=== PATIENT | male | born 1935 | race Caucasian/White ===

== ENCOUNTER 2017-09-30 09:18 | Inpatient (IN) | payer MEDICARE ==
[2017-09-30 10:19] LABS: Hematocrit 37.6 % (42.0-52.0); Mean Platelet Volume 8.7 fL (7.4-10.4); White Blood Cell (WBC) Count 24.7 thou/uL (4.8-10.8)
[2017-09-30 10:31] LABS: ALT (SGPT) 49 U/L (8-55); AST (SGOT) 100 U/L (5-34); Alkaline Phosphatase 121 U/L (40-150); Anion Gap 13 mmol/L (10-20); BUN (Urea Nitrogen) 18 mg/dL (8.4-25.7); CK (CPK) 26 U/L (30-200); Calc. Creatinine Clearance 0 mL/min (70-130); Calcium 8.6 mg/dL (7.8-10.44); Carbon Dioxide 25 mmol/L (23-31); Chloride 106 mmol/L (98-107); Estimated GFR-MDRD 65; Globulin 2.2 g/dL (2.4-3.5); Lipase 921 U/L (8-78); Protein, Total 6.1 g/dL (5.8-8.1)
[2017-09-30 10:36] LABS: Troponin I 0.099 ng/mL (< 0.028)
--- NOTE | 2017-09-30 10:50 | ULT ---
ULTRASOUND GALLBLADDER RIGHT UPPER QUADRANT: Date: 09/30/17 HISTORY: Pain FINDINGS: The pancreas is not well seen. There is cholelithiasis. Gallbladder wall thickness is upper limits of normal. Sonographic Garza's sign is negative. Common bile duct measures 4.0 mm. Liver measures 15.6 cm in length. There is trace perihepatic ascites. Main portal vein is patent. The right kidney measures 9.6 x 5.0 x 5.5 cm without mass, hydronephrosis, or abnormal calcifications . IMPRESSION: 1. Cholelithiasis with gallbladder wall thickness upper limits of normal. Negative sonographic Julia y's sign. Wall thickness may be sequelae of congestive changes. Close follow-up recommended. 2. Mild perihepatic ascites. POS: [facility]
[2017-09-30 11:01] LABS: Band 14 % (5-11); Macrocytosis SLIGHT = 6-15 cells (100X) (0-5/hpf); Neutrophil 78 % (42-75)
--- NOTE | 2017-09-30 11:33 | CT ---
CT ABDOMEN AND PELVIS WITH CONTRAST: Date: 09/30/17 HISTORY: Pancreatitis with elevated white count. COMPARISON: None. FINDINGS: There is atelectasis in the left lower lobe. Small left effusion. Mild elevation left hemidiaphragm. Heart size is enlarged. There is some low grade edema around the pancreatic head, as well as second portion of the duodenum. Spleen is unremarkable. The adrenal glands are normal. Kidneys are slightly atrophic with multiple areas of scarring. There is a right superior renal exophy tic cyst. There are small retroperitoneal and periaortic lymph nodes. Small, fat-containing, left-sided direct inguinal hernia. No dilated loops of large or small bowel. T here is some accumulation of fluid in the left paracolic gutter, as well as thickening of the adjacen t peritoneum with small diverticula. There is moderate to severe degenerative change of the pubic symphysis. There are severe degenerative changes throughout the lumbar spine. IMPRESSION: 1. Low grade edema around the pancreatic head, as well as the second portion of the duodenum. This c an be seen with pancreatitis versus duodenitis. Inflamed ulcer would have similar appearance. If the patient's pancreatic values are normal, such as amylase and lipase, endoscopy would be recommended. 2. Concern for possible ulcer along the dorsal aspect of the second portion of the duodenum with are a of poor mucosal enhancement, series 601, image 50. Upper endoscopy is recommended. 3. Small kidneys with multiple cortical scars. 4. Small volume free fluid in the pelvis. 5. No evidence of bowel obstruction. 6. Mildly heterogeneous appearance to the liver, likely congestive changes with cardiomegaly. POS: [facility]
[2017-09-30] MEDS ORDERED: Furosemide 40 MG/4 ML VIAL ONE (11:47)
[2017-09-30] MEDS ORDERED: ISOVUE-370 76%-LOCM 1 ML ONE (11:47)
[2017-09-30] MEDS ORDERED: Piperacillin/Tazobactam 3.375 GM in Sodium Chloride 0.9% 100 ML IVPB ONE (12:45)
[2017-09-30 13:12] LABS: Troponin I 0.106 ng/mL (< 0.028)
[2017-09-30] MEDS ORDERED: Morphine 4 MG/ML VIAL ONE (13:16)
[2017-09-30] MEDS ORDERED: Ondansetron ODT 4 MG TAB SL PRN (13:58)
[2017-09-30] MEDS ORDERED: Sodium Chloride 0.9% 1,000 ML IV SCH ×2 (13:58→17:00)
[2017-09-30] MEDS ORDERED: Ondansetron HCl/PF 4 MG/2 ML Vial IVP PRN ×2 (13:58→17:00)
[2017-09-30] MEDS ORDERED: Acetaminophen 500 MG TAB PO PRN (17:00)
[2017-09-30] MEDS ORDERED: Ondansetron ODT 4 MG TAB PO PRN (17:00)
[2017-09-30] MEDS ORDERED: hydrALAZINE 20 MG/ML VIAL SLOW IVP PRN (17:00)
[2017-09-30] MEDS ORDERED: cloNIDine 0.1 MG TAB PO PRN (17:00)
[2017-09-30] MEDS ORDERED: Morphine 4 MG/ML VIAL SLOW IVP PRN (17:00)
[2017-09-30] MEDS: HYDROcodone/Acetaminophen 5/325 mg Tablet PO PRN (17:32)
--- NOTE | 2017-09-30 18:47 | HP ---
DATE OF ADMISSION: 09/30/2017 PRIMARY CARE PROVIDER: Gael Sharma M.D. CHIEF COMPLAINT: Abdominal pain. HISTORY OF PRESENT ILLNESS: This is an 81-year-old male who presented to [facility] from [facility] Emergency Department complaining of abdominal pain. 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 The patient states that the pain was 2-3/10 in intensity with some sharp element s. The patient states that the pain seemed to migrate to his chest region and had associated emesis x2 in the evening. The patient denied any recent change to his medication regimen, trauma, injury, s ick contacts or travel history. The patient states his bowel movements have been regular without ruth dence of blood in the stool. 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 In the Emergency Department, the patient underwent general evaluation with metabolic screening showing elev ated white blood cell count of 29,000 and a lipase level of 1117. CT of the abdomen and pelvis showe d inflammation at the head of the pancreas as well as mild duodenal wall thickening. Right upper rosana drant ultrasound was performed showing cholelithiasis without evidence of choledocholithiasis and a c ommon bile duct at 4 mm. The patient received IV morphine sulfate, aspirin 324 mg, Lasix 80 mg IV x1 dose and Zosyn 3.375 g x1 dose. The patient was referred to the Hospitalist Service for further smiley luation. PAST MEDICAL HISTORY: 1. 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 2. History of cellulitis of the left lower extremity associated with myositis and fasciitis. 3. Chronic atrial fibrillation/flutter with pacemaker placement. 4. Coronary artery disease status post angioplasty. 5. Hypertension. 6. History of prior anticoagulation for atrial fibrillation. 7. Symptomatic bradycardia status post pacemaker insertion. 8. History of colon polyps. 9. Degenerative disk disease of the lumbar and cervical spine. 10. History of esophageal stricture. 11. History of syncope with loss of consciousness and closed head injury, 09/2016. PAST SURGICAL HISTORY: 1. Status post left shoulder repair. 2. Status post colon surgery. 3. Status post lower back surgery for disk repair. 4. Status post coronary artery bypass grafting x4 vessels. 5. Status post cervical spine fusion and diskectomy. 6. Status post pacemaker placement. CURRENT MEDICATIONS: 1. Amlodipine 5 mg one tablet p.o. daily. 2. Lipitor 20 mg p.o. at bedtime. 3. Lasix 40 mg 1 tablet p.o. daily. 4. [place] 5/325 mg 1 tablet p.o. q.6 hours p.r.n. pain. 5. Loratadine 10 mg p.o. daily. 6. Losartan/HCTZ 100/25 mg 1 tablet p.o. daily. 7. Metoprolol tartrate 25 mg p.o. daily. 8. Tramadol 50 mg p.o. q.6 hours p.r.n. pain. ALLERGIES: No known drug allergies. FAMILY HISTORY: Positive for hypertension. SOCIAL HISTORY: The patient is , [place] near [facility]. 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 Uses a rolling walker or sco oter for long distance ambulation and mobilization. Continues to drive. REVIEW OF SYSTEMS: The following complete review of systems was negative, unless otherwise mentioned in the HPI or below: Constitutional: Weight loss or gain, ability to conduct usual activities. Sk in: Rash, itching. Eyes: Double vision, pain. ENT/Mouth: Nose bleeding, neck stiffness, pain, te nderness. Cardiovascular: Palpitations, dyspnea on exertion, orthopnea. Respiratory: Shortness of breath, wheezing, cough, hemoptysis, fever or night sweats. Gastrointestinal: Poor appetite, abdom inal pain, heartburn, nausea, vomiting, constipation, or diarrhea. Genitourinary: Urgency, frequenc y, dysuria, nocturia. Musculoskeletal: Pain, swelling. Neurologic/Psychiatric: Anxiety, depressio n. Allergy/Immunologic: Skin rash, bleeding tendency. Otherwise negative except as stated per HPI. PHYSICAL EXAMINATION: VITAL SIGNS: Currently, blood pressure 143/83, pulse 66, respiratory rate 20, temperature 99.1 degre es Fahrenheit, O2 saturation 99% on room air. GENERAL APPEARANCE: This is an 81-year-old male, alert and oriented x3, pleasant, conversa nt, in no acute distress. HEENT: Pupils are equal, round and reactive to light and accommodation. Extraocular muscles are int act. No scleral icterus. No conjunctival injection. Nares patent. OP is clear. Oral mucosa dry. NECK: Supple, no cervical adenopathy, no thyromegaly, no carotid bruits, no JVD appreciated. Cervic al spine with full active and passive range of motion. No meningeal signs appreciated. CHEST: Lungs are clear to auscultation bilaterally. CARDIOVASCULAR: S1, S2 with distant heart sounds. Left upper chest wall with pacemaker device in pl brett. ABDOMEN: Rounded, soft, nontender, nondistended. Bowel sounds are positive in all four quadrants. There is no hepatosplenomegaly, no abdominal bruits, no rebound or guarding appreciated. No palpable mass. EXTREMITIES: Warm and dry with fair turgor. No clubbing, cyanosis or asymmetric edema appreciated. Pulses palpable distally at the dorsalis pedis, posterior tibial and popliteal arteries bilaterally. Capillary refill less than 2 seconds. NEUROLOGIC: Cranial nerves II-XII are grossly intact. No focal or lateralizing signs appreciated. PERTINENT LABORATORY AND X-RAY FINDINGS: Sodium 140, potassium 4.2, chloride 106, CO2 of 25, BUN 18, creatinine 1.09, estimated GFR of 65, glucose 112, calcium 8.6, total bilirubin 2.0, AST 100, ALT 49 , alkaline phosphatase 121. Total CK of 26. Troponin I ranged between 0.099 and 0.106. BNP 2420, p reviously noted; 1053, 09/12/2016. Albumin 3.9, lipase ranged between 921 to 1117. CBC showed a [facility] te blood cell count of 25,000, hemoglobin 12, hematocrit 38, MCV 107, platelet count 191 with 78% jorge a trophils, 14% bands. Portable chest x-ray dated 09/30/2017 showed no acute cardiopulmonary process. Chronic degenerative changes in bilateral shoulders girdles. CT of the abdomen and pelvis dated showed edema around the pancreatic head and second portion of the duodenum. Questionable ulc er of the dorsal aspect of the second portion of the duodenum. No evidence of bowel obstruction. Ab dominal ultrasound dated 09/30/2017 showed cholelithiasis with gallbladder wall thickness in the uppe r limits of normal. Common bile duct measuring 4 mm. EKG dated 09/30/2017 by my interpretation show s a demand pacemaker with heart rates in the 70s. No acute ST-T wave changes appreciated. ASSESSMENT AND PLAN: 1. Acute pancreatitis. The patient will be admitted to the critical care unit. Questionable choled ocholithiasis with spontaneous passage of stone. We will consult GI Service for evaluation and monit or lipase trend. Clinical exam essentially unrevealing currently. We will continue intravenous norm al saline at 75 mL per hour. Morphine sulfate 2 mg IV every 4 hours p.r.n. Clear liquids as tolerat ed. Check fasting lipid profile and lipase level in the a.m. 2. Transaminitis/hyperbilirubinemia. Suspect secondarily to acute pancreatitis. We will continue t o monitor trend and repeat LFTs and bilirubin in the a.m. Clear liquids as tolerated. 3. Elevated troponin I. No current evidence to suggest acute coronary syndrome. Review of [facility] medical record shows similar troponin I levels dating back to 2016. We will continue monitoring t rend and check 2D transthoracic echocardiogram for wall motion abnormalities. 4. Leukocytosis with bandemia. Suspect secondary to acute pancreatitis. We will hold antibiotic th erapy and monitor CBC trend. 5. Chronic atrial fibrillation, rate controlled. We will continue telemetry monitoring. Patient wi th current pacemaker device showing a demand paced rhythm in the 60s-70s. 6. Chronic kidney disease stage 2. We will continue intravenous normal saline at 75 mL per hour. A void nephrotoxic agents and contrast media. Repeat creatinine in the a.m. 7. Prophylaxis. Sequential compression devices while in bed. Pepcid 20 mg IV q.12 hours. PT evalu ation in the a.m. 8. Code status is full. Surrogate medical decision maker is the patient's grandson.
[2017-09-30] MEDS ORDERED: Piperacillin/Tazobactam 3.375 GM in Sodium Chloride 0.9% 100 ML IVPB SCH (19:00)
[2017-09-30] MEDS: Famotidine/PF 20 mg/2ml Vial SLOW IVP SCH (20:52)
[2017-09-30] MEDS: Sodium Chloride 0.9% 1,000 ML IV SCH (21:58)
--- NOTE | 2017-09-30 23:22 | CON ---
DATE OF CONSULTATION: 09/30/2017 REASON FOR CONSULTATION: Acute pancreatitis. CONSULTING PROVIDER: Avni Foster M.D. HISTORY OF PRESENT ILLNESS: The patient is an 81-year-old gentleman with past medical history of cer vical stenosis, coronary artery disease, hyperlipidemia, atrial fibrillation, and hypertension presen ting with complaints of an abdominal pain. He states that yesterday afternoon at around 5:00 p.m. in the afternoon, he had the acute onset of mild midepigastric abdominal pain. They get progressively got worse over the next 6 hours. He described the pain as sharp/stabbing in nature, severity of 5-6/ 10, radiating to the substernal chest region worse with movement, better with inactivity. This was a lso associated with emesis x2 later in the evening with no hematemesis noted at that time. Early the next morning, the pain continued to increase, prompting admission to the [facility] for evaluatio n. Upon evaluation, he was noted to have a white blood cell count of approximately 29,000 and an tarun vated lipase level of 1117. He was subsequently admitted for further evaluation of acute pancreatiti s. Of note, patient did take Pepto-Bismol earlier in the evening for symptom relief with only mild r elief in symptoms. PAST MEDICAL HISTORY: As above. PAST SURGICAL HISTORY: Left shoulder repair, lower back surgery, coronary artery bypass graft x4 ves stacie, cervical spine fusion and diskectomy, and pacemaker placement. SOCIAL HISTORY: Denies any tobacco or illicit drug use. Drinks approximately 2-3 glasses of wine we ekly. OUTPATIENT MEDICATIONS: Amlodipine 5 mg daily, Lipitor 20 mg daily, furosemide 40 mg daily, [place] 5/ 325 q.6 hours as needed, loratadine 10 mg daily, losartan/hydrochlorothiazide 100/25 mg 1 tablet michelle y, metoprolol 25 mg daily, tramadol 50 mg every 6 hours as needed for pain. INPATIENT MEDICATIONS: Reviewed. ALLERGIES: No known drug allergies. REVIEW OF SYSTEMS: A twelve-category review of systems was complete with all negative responses exce pt for the pertinent positives as listed in the HPI. PHYSICAL EXAMINATION: VITAL SIGNS: Temperature 99.5, pulse 65, blood pressure 139/61, respiratory rate 17, satting 92% on 2 liters nasal cannula. GENERAL: No acute distress. Alert and oriented x4. HEENT: Pupils equal, round, and reactive to light. Extraocular movements intact. NECK: No JVD. Neck supple. CARDIOVASCULAR: Regular rate and rhythm with no discernible murmurs, gallops, or rubs. RESPIRATORY: Clear to auscultation bilaterally with no discernible wheezes or rales. ABDOMEN: Soft, normoactive bowel sounds, nondistended. Tender to palpation in the right upper quadr ant, midepigastric, and periumbilical regions with both light and deep palpation. No hepatosplenomeg hayder noted. No rebound or guarding appreciated. EXTREMITIES: No cyanosis, clubbing, or edema. LABORATORY DATA: CBC with white blood cell count of 24.7, hemoglobin 12.2, hematocrit 37.6, platelet s 191. Chemistry with sodium of 140, potassium 4.2, chloride 106, carbon dioxide 25, BUN 18, creatin ine 1.09, glucose 112. AST 100, ALT 49, alkaline phosphatase 121, total bilirubin 2.0, albumin 3.9, lipase 921. BNP 2420. IMAGING: CT abdomen and pelvis obtained on 09/30/2017 showing low-grade edema around the pancreatic head as well as the second portion of the duodenum, which could be seen with pancreatitis versus duod enitis. A small fat containing left-sided direct inguinal hernia also noted. No dilated loops of la rge or small bowel. There is some accumulation of fluid in the left pericolic gutter as well as thic kening of the adjacent peritoneum with small diverticula. Right upper quadrant ultrasound obtained o n 09/30/2017 showing incomplete visualization of the pancreas. Gallbladder wall thickness is to be u pper limit of normal. Sonographic Garza sign is negative. Common bile duct measuring approximately 4 mm. There is also trace perihepatic ascites. ASSESSMENT AND PLAN: Patient is an 81-year-old male with past medical history of cervical stenosis, coronary artery disease, hyperlipidemia, atrial fibrillation, and hypertension presenting with acute pancreatitis. Acute pancreatitis. Patient is presenting with increasing midepigastric abdominal pain that has been worsening over the last 12-18:00 hours characterized as a sharp stabbing pain located in the midepig astric region with no radiation of that pain. Upon admission to the [place] [facility], he was noted to h ave a significantly elevated lipase consistent with acute pancreatitis as well as right upper quadran t ultrasound and CT of the abdomen and pelvis also consistent with the diagnosis. Currently presenti ng with mild pancreatitis, given that he does not meet systemic inflammatory response syndrome criter ia with a BISAP score of 1 (elevated age only). Etiology of the acute pancreatitis is unknown at thi s time, but unlikely to be choledocholithiasis given the elevation of total bilirubin when compared t o his transaminases as well as the CT findings showing normal caliber of the common bile duct. MRCP was discussed with the patient, but he is reluctant to proceed at this time due to extreme complaints of claustrophobia. At this time, the most likely explanation for the episode of acute pancreatitis would be either idiopathic or possible medication induced (hydrochlorothiazide has been shown to caus e pancreatitis on occasion). PLAN: 1. Would continue IV fluid, but increased to approximately 125 mL per hour, given concern for possib le third spacing with acute pancreatitis. 2. Would administer 40 mg IV Lasix after administration of 1 liter of IV fluid. 3. Pain control per primary team. 4. Agree with obtaining a lipid panel for determination of possible hypertriglyceridemia as a source of his pancreatitis. 5. Would discontinue trending of lipase, as it is not reflective of degree of inflammation nor as it a reliable prognostic indicator. 6. We will continue to follow. Please call with any questions.
[2017-10-01] MEDS: Sodium Chloride 0.9% 1,000 ML IV SCH ×3 (00:25→10:36)
[2017-10-01 05:19] LABS: ALT (SGPT) 41 U/L (8-55); AST (SGOT) 63 U/L (5-34); Alkaline Phosphatase 101 U/L (40-150); Anion Gap 14 mmol/L (10-20); BUN (Urea Nitrogen) 19 mg/dL (8.4-25.7); Bilirubin, Total 1.6 mg/dL (0.2-1.2); Calc. Creatinine Clearance 0 mL/min (70-130); Calcium 8.6 mg/dL (7.8-10.44); Carbon Dioxide 25 mmol/L (23-31); Chloride 105 mmol/L (98-107); Cholesterol 106 mg/dl (< 200 Desired); Estimated GFR-MDRD 65; Globulin 2.2 g/dL (2.4-3.5); LDL Cholesterol, Calculated 50 mg/dL; Lipase 357 U/L (8-78); Protein, Total 5.9 g/dL (5.8-8.1)
[2017-10-01 05:22] LABS: Band 6 % (5-11); Hematocrit 37.7 % (42.0-52.0); Mean Platelet Volume 8.8 fL (7.4-10.4); Neutrophil 89 % (42-75); Red Blood Cell (RBC) Count 3.54 mill/uL (4.70-6.10); White Blood Cell (WBC) Count 15.9 thou/uL (4.8-10.8)
[2017-10-01] MEDS: HYDROcodone/Acetaminophen 5/325 mg Tablet PO PRN ×3 (05:56→20:45)
[2017-10-01] MEDS: Metoprolol Tartrate 25 MG TAB PO SCH (08:55)
[2017-10-01] MEDS: Loratadine 10 MG TAB PO SCH (08:55)
[2017-10-01] MEDS: Famotidine/PF 20 mg/2ml Vial SLOW IVP SCH (08:55)
[2017-10-01] MEDS: Furosemide 40 MG TAB PO SCH (08:55)
[2017-10-01] MEDS ORDERED: Sodium Chloride 0.9% 1,000 ML IV SCH (14:31)
[2017-10-01] MEDS ORDERED: Furosemide 40 MG/4 ML VIAL SLOW IVP SCH (15:00)
--- NOTE | 2017-10-01 16:24 | CON ---
DATE OF CONSULTATION: 10/01/2017 SERVICE: Pulmonary Medicine. REASON FOR CONSULTATION: ICU patient. HISTORY OF PRESENT ILLNESS: Patient is an 81-year-old white male with past medical history significa nt for nothing. He has never had his gallbladder out and has some cholelithiasis. He was in his [facility] state of health when he started having annoying discomfort in his belly. It started in the perium bilical region, but then migrated up into the epigastric region. It was sharp and constant in nature . It did not really radiate anywhere. He presented to the emergency department, because it started kind of moving into the inferior part of his chest and he wanted to make certain he was not having a heart issue. His heart checked out fine and did not have any biochemical evidence of changes. That being said, lipase was significantly elevated. This prompted imaging, which confirmed the idea that he had inflammatory stranding around the head of pancreas. He was given some bowel rest for a brief period of time. At some point, his discomfort fairly abruptly improved. Overnight, he had no additi onal issues. This morning, he is tolerating a clear diet. His IV fluids were previously increased. He denies any current fevers, chills, nausea, and vomiting that precipitated any of this event. His abdominal discomfort as of now has completely resolved. PAST MEDICAL HISTORY: 1. Atrial fibrillation, chronic. 2. Coronary artery disease with history of angioplasty. 3. Hypertension. 4. Dyslipidemia. 5. Chronic back pain with degenerative disk disease. PAST SURGICAL HISTORY: 1. Left shoulder repair. 2. Colon surgery. 3. Back surgeries. 4. Coronary artery bypass graft x4 vessels. 5. Neck surgery. 6. Pacemaker placement for history of bradycardia. ALLERGIES: No known drug allergies. MEDICATIONS: List of his inpatient medications were reviewed. No specific updates were made at this time. FAMILY HISTORY: Noncontributory. 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 He got a degree in [employer]. H e has been retired for several years. He does not have any current use of alcohol, tobacco, or illic it drug use, and does not endorse any exposure to chemicals, dust, asbestos, or tuberculosis. REVIEW OF SYSTEMS: General, head, ears, eyes, nose, throat, cardiovascular, respiratory, GI, , mus culoskeletal, neurologic, and skin is negative except as mentioned in the HPI. PHYSICAL EXAMINATION: VITAL SIGNS: Afebrile, pulse 62, blood pressure 106/63, respirations 16, saturation 98% on room air. GENERAL: Patient is awake, alert, in no apparent distress. HEENT: Normocephalic, atraumatic. Sclerae are white. Conjunctivae pink. Oral and nasal mucosa is moist without lesions. LUNGS: Excellent air entry. There is no prolongation of the expiratory phase, wheezing, rhonchi, or crackles. HEART: Normal rate. Irregular. ABDOMEN: Soft, nontender, nondistended. Bowel sounds are positive at this point. NEUROLOGIC: Grossly nonfocal. MUSCULOSKELETAL: No cyanosis or clubbing. There is trace pitting in the bilateral lower extremities . LABORATORY DATA: WBC 15.9, hemoglobin 12.2, platelets 151,000. The hemoglobin count has not signifi cantly changed over the past 24 hours. Bands are resolving to 6%. Total bilirubin 1.6 and down tren ding. Basic metabolic profile is otherwise unremarkable. Liver function studies are essentially com pletely normal with an AST that is moving back into the normal range. Troponin is 0.1, BNP 2400. Li pase 921, is improving to 360. IMAGIN. Abdominal ultrasound demonstrates cholelithiasis with a little bit of gallbladder wall thickening to the upper limits of normal. The common bile duct measures normal at 4 mm. Mild perihepatic asci nicole is identified. 2. CT of the abdomen and pelvis demonstrates stranding about the head of the pancreas. There could be inflammation in the second portion of the duodenum with some enhancement. These changes could ref lect an ulcer in the absence of significantly elevated LFTs, consistent with obstructive pancreatitis . ASSESSMENT: 1. Acute pancreatitis, mild. 2. Chronic diastolic heart failure. 3. Sepsis. PLAN: Since the patient is tolerating full p.o. without significant abdominal discomfort, I will int errupt his IV fluids. He can subsequently be transitioned out of the ICU to the telemetry unit. [facility] will continue to follow for the time being, but my suspicion is that if at all r emains normal and he is breathing comfortably tomorrow morning, he can be considered for transition h ome.
--- NOTE | 2017-10-01 18:55 | PRG ---
DATE OF SERVICE: 10/01/2017 REASON FOR CONSULTATION: Acute pancreatitis. SUBJECTIVE: Overnight, the patient is without any additional problems or complaints. Today, he states that he is feeling better with a decrease in his abdominal pain from a 6/10 in severity to a 3/10 in severity. No further episodes of nausea or emesis. Currently, he denies any nausea, vomiting, fevers , chills, shortness of breath, melena, hematochezia, or hematemesis. INPATIENT MEDICATIONS: Reviewed. LABORATORY DATA: CBC with a white blood cell count of 15.9, hemoglobin 12.1, hematocrit 37.7, platelets 151. Chemistry with a sodium 140, potassium 3.7, chloride 105, carbon dioxide 25, BUN 19, creatinine 1.08, glucose of 74, AST 63 , ALT 41, alkaline phosphatase 101, total bilirubin 1.6, triglycerides 53, lipase 357. ASSESSMENT: The patient is an 81-year-old man with past medical history of cervical stenosis, coronary artery disease, hyperlipidemia, atrial fibrillation , and hypertension presenting with acute pancreatitis. Acute pancreatitis. The patient presenting with increased midepigastric abdominal pain that had been worsening over the last 12-18 hours prior to admission with pain located in the midepigastric region with no radiation to lower back. Upon admission, he was noted to have significantly elevated lipase at approximately 1000, but upon review of labs, was also noted to have a mildly elevated AST when compared to ALT in an approximately 2:1 distribution. Per labs today, he would be diagnosed with mild acute pancreatitis given that he did not meet SIRS criteria with the BISAP score of 1. Upon further questioning of the patient today, he did admit to increased alcohol consumption prior to admission, which could potentially contribute to acute alcoholic pancreatitis. With his current labs and the degree of elevation of total bilirubin when compared to his transaminases, this is not consistent with choledocholithiasis. At this time, the most likely explanation for his episode of acute pancreatitis would be chronic alcohol use leading to both his elevated lipase and transaminases. PLAN: 1. Could consider discontinuation of IV fluid and advancement of the patient's abdominal diet to include oral hydration. 2. Would defer to primary team for administration of Lasix, given elevated BNP on admission. 3. Pain control per primary team. 4. Would advance the diet as tolerated, but would start the patient on low fat diet. 5. Would discontinue trending of lipase as it is not reflective of degree of inflammation nor is it a reliable prognostic indicator. 6. Strongly encourage alcohol cessation. Would consider monitoring for withdrawal. We will sign off at this time. Please reconsult with any additional questions. MTDD
[2017-10-01] MEDS: Famotidine 20 MG TAB PO SCH (19:29)
[2017-10-02] MEDS ORDERED: Haloperidol Lactate 5 MG/ML VIAL IM SCH (00:45)
[2017-10-02] MEDS: Loratadine 10 MG TAB PO SCH (08:37)
[2017-10-02] MEDS: Famotidine 20 MG TAB PO SCH (08:37)
[2017-10-02] MEDS: Furosemide 40 MG TAB PO SCH (08:37)
[2017-10-02] MEDS: Metoprolol Tartrate 25 MG TAB PO SCH (08:37)
[2017-10-02] MEDS: HYDROcodone/Acetaminophen 5/325 mg Tablet PO PRN (09:03)
--- NOTE | 2017-10-02 10:31 | PQF ---
CLINICAL DOCUMENTATION IMPROVEMENT CLARIFICATION FORM: ICD-10 Updated PLEASE DO AN ADDENDUM TO THE PROGRESS NOTE WITH ANY DOCUMENTATION UPDATES OR ADDITIONS AND CARRY THROUGH TO DC SUMMARY. THANK YOU. DATE: 10/02/17 ATTN: DR. CHAVEZ Please exercise your independent, professional judgment in responding to the clarification form. Clinical indicators are provided on the bottom of this form for your review Please check appropriate box(s): HEART FAILURE: A.TYPE: [ ] Systolic / HFrEF [ ] Diastolic / HFpEF [ ] Combined Systolic / Diastolic B.ACUITY [ ] Acute[ ] Acute on Chronic [ ] Chronic C.WITH (if appropriate) [ ] Hypertensive Heart Disease[ ] Hypertensive Heart and Kidney Disease [ ] Other diagnosis [ ] Unable to determine In addition, please specify: Present on Admission (POA): [ ] Yes [ ] No [ ] Unable to determine For continuity of documentation, please document condition throughout progress notes and discharge summary. Thank You. CLINICAL INDICATORS - SIGNS / SYMPTOMS / LABS ER NOTE: "PATIENT ALSO WITH VOLUME OVERLOADED CHF" BNP 2420 ECHO REPORT: "EJECTION FRACTION IS VISUALLY ESTIMATED AT 40-45%" RISKS: H/O CHRONIC DIASTOLIC HEART FAILURE TREATMENT: IV LASIX ( GIVEN IN ER) PO LASIX (10/01-PRESENT) ECHOCARDIOGRAM CRITICAL CARE MONITORING (This form is maintained as a part of the permanent medical record) 2014 [employer]. All Rights Reserved PACO [email or web address] Office: [phone] MTDD
[2017-10-02 11:37] VITALS: BP 154/84; TEMP 97.4
--- NOTE | 2017-10-02 15:44 | PRG ---
DATE OF SERVICE: 10/02/2017 SERVICE: Pulmonary Medicine. INTERVAL HISTORY: The patient is breathing very comfortably this morning. He has no complaints of f kary, chills, nausea, vomiting or chest discomfort. Otherwise, there has been no interval change to his condition. His belly pain is completely resolved. He is hoping to go home today and I think th at is reasonable if cleared by his general medical doctor. He certainly has no respiratory issues th at are going to keep him here any longer. PHYSICAL EXAMINATION: VITAL SIGNS: Afebrile, pulse 65, blood pressure 154/84, respirations 18, saturation 98% on room air. GENERAL: Patient is awake, alert, in no apparent distress. LUNGS: Decent air entry. There is no prolonged expiratory phase. No crackles, wheezing or rhonchi appreciated. HEART: Normal rate, regular. ABDOMEN: Soft, nontender, nondistended. Bowel sounds are positive. MUSCULOSKELETAL: No cyanosis or clubbing. There is trace pitting in the bilateral lower extremities , which is improved. GENITOURINARY: No Seo catheter. NEUROLOGIC: Grossly nonfocal. ASSESSMENT: 1. Acute pancreatitis, mild. 2. Acute on chronic diastolic heart failure, improving. 3. Systemic inflammatory response syndrome. PLAN: Since the patient is clinically improved so much and is tolerating p.o., disposition can be co nsidered. The patient is aggressively pushing for that. He indicates to me that he has returned ess entially to his usual state of health and has no ongoing ailments. He certainly has no requirements even here from a pulmonary or critical care perspective. As such, we will sign off. Please call if the patient's condition decompensates.
== END 2017-10-02 14:23 | disposition home or self-care (01) | DRG 438 ==
LOC: ERS 09:18 → ERHOLD 10:08 → CCU 13:57 → 2SE 10-01 23:33
PROVIDERS: ADMIT Family Medicine; ATTEND Family Medicine
DX: K85.90 Acute pancreatitis without necrosis or infection, unspecified (principal); I50.33 Acute on chronic diastolic (congestive) heart failure; I13.0 Hypertensive heart and chronic kidney disease with heart failure and stage 1 through stage 4 chronic kidney disease, or unspecified chronic kidney disease; I48.2 Chronic atrial fibrillation; E80.6 Other disorders of bilirubin metabolism; R74.8 Abnormal levels of other serum enzymes; N18.2 Chronic kidney disease, stage 2 (mild); Z95.0 Presence of cardiac pacemaker; I25.10 Atherosclerotic heart disease of native coronary artery without angina pectoris; Z95.5 Presence of coronary angioplasty implant and graft; E78.5 Hyperlipidemia, unspecified; Z98.1 Arthrodesis status; F40.240 Claustrophobia; K80.20 Calculus of gallbladder without cholecystitis without obstruction
CPT/HCPCS: 36415; 74177; 76705; 80053; 80061; 83690; 83880; 85007; 85027; 93306; 96365; 96375; A4216; G8978-GP-CI; G8979-GP-CI; G8980-GP-CI; J1630; J1940; J2270; J2543; J7050; S0028

== ENCOUNTER 2018-02-18 10:27 | Outpatient (CLI) | payer MEDICARE ==
--- NOTE | 2018-02-19 10:36 | RAD ---
MODIFIED BARIUM SWALLOW WITH SPEECH THERAPIST: HISTORY: Dysphagia unspecified, dysphagic oropharyngeal phase and feeding difficulties. FINDINGS/IMPRESSION: A modified barium swallow is performed by the speech therapist. Deep silent penetration was seen wit h thin liquids. No aspiration is seen during the examination. Please see dedicated speech therapy r eport for specific findings and recommendations. POS: [facility]
== END 2018-02-18 10:28 | disposition home or self-care (01) ==
PROVIDERS: ATTEND Internal Medicine
DX: I69.191 Dysphagia following nontraumatic intracerebral hemorrhage (principal); R13.12 Dysphagia, oropharyngeal phase
CPT/HCPCS: 74230; G8996-GN-CL; G8997-GN-CL; G8998-GN-CL

== ENCOUNTER 2018-08-13 09:35 | Outpatient (CLI) | payer MEDICARE ==
--- NOTE | 2018-08-13 13:09 | CT ---
CTA CHEST WITH AND WITHOUT CONTRAST: INDICATIONS: Coronary mapping prior to surgical procedure. This is not a dedicated coronary artery examination. TECHNIQUE: Multiple axial tomograms obtained through the chest with attention to the heart without contrast. Th is was followed by post contrast images. Multiplanar reconstruction and 3D post processing were obta ined. FINDINGS: The pulmonary arteries show normal opacification with no evidence of pulmonary embolus. The thoracic aorta shows mild atherosclerotic change. No evidence of dissection or aneurysmal dilatation. Diffuse coronary artery calcification is seen in the left main, the LAD, and the circumflex. The rig ht coronary artery has a normal origin and shows diffuse calcification. There are bypass grafts in p lace, from the aorta to the LAD and the circumflex. These grafts appear to be patent on the post con trast study. There is also a bypass graft to the right coronary. There is evidence of mild calcific ation within these bypass grafts, and patency is difficult to confirm. The pulmonary veins appear no rmal anatomically. The lung mcgraw show ground glass opacity in the visualized left lower lobe. The right lower lobe is not adequately evaluated. There is evidence of a small to moderate sized left p leural effusion. IMPRESSION: 1. Diffuse coronary artery calcification. Bypass grafts are in place with evidence of mild calcific ation involving the grafts. 2. Pulmonary arteries and pulmonary veins appear unremarkable. 3. Small to moderate left pleural effusion. POS: [facility]
[2018-08-13] MEDS ORDERED: Iopamidol 370 76% 100 ML VIAL ONE (13:29)
== END 2018-08-13 09:36 | disposition home or self-care (01) ==
LOC: CT 09:35
PROVIDERS: ATTEND Internal Medicine Cardiovascular Disease
DX: I48.91 Unspecified atrial fibrillation (principal); R06.02 Shortness of breath; I25.810 Atherosclerosis of coronary artery bypass graft(s) without angina pectoris; J90 Pleural effusion, not elsewhere classified
CPT/HCPCS: 36415; 71275; 82565; 84520

== ENCOUNTER 2018-11-10 11:40 | Day surgery (SDC) | payer MEDICARE ==
[2018-11-09 12:25] VITALS: BMI 23.6
[2018-11-10] MEDS ORDERED: Lidocaine 2% 10 ML INJ ONE (12:25)
[2018-11-10] MEDS ORDERED: PROPOFOL 20 ML ONE (12:25)
[2018-11-10] MEDS ORDERED: Fentanyl 100 MCG/2 ML VIAL ONE (12:38)
[2018-11-10] MEDS ORDERED: traMADol HCl 50 MG TAB PO SCH (13:30)
[2018-11-10] MEDS ORDERED: traMADol HCl 50 MG TAB ONE (13:45)
[2018-11-10] MEDS ORDERED: Lidocaine 1% PF 5 ML VIAL ONE (16:00)
[2018-11-10] MEDS ORDERED: PROPOFOL 200 MG/20 ML VIAL ONE (16:00)
--- NOTE | 2018-11-12 13:07 | ECHO ---
PROCEDURE PERFORMED 1. Transesophageal echocardiography. 2. Assessment of Watchman device. The patient was consented to the procedure. I discussed proceeding in full detail with Mr. Campbell. Risks included, but not limitedtothe following: Damage to teeth, mouth, back of throat and damage to esophagus. All questions were answered. Given the above, the patient agreed to proceed with the above procedure. FINDINGS The Watchman is well seen. Cannot completely exclude malposition in the superior edge of the Watchman. No thrombus present behind the Watchman suggesting flow or leak. IMPRESSION 1. No thrombus present behind the Watchman suggesting leak. Study reviewed by Dr. Edwin Alcaraz and Remington Grey, who agreed. Continue anticoagulation therapy for at least two months and repeat DILLON. MTDD
== END 2018-11-10 14:15 | disposition home or self-care (01) ==
LOC: SDC 11:40
PROVIDERS: ATTEND Internal Medicine Cardiovascular Disease
PROC: B246ZZ4 Ultrasonography of Right and Left Heart, Transesophageal (ICD-10-PCS; principal; 2018-11-10)
DX: I48.1 Persistent atrial fibrillation (principal); E78.5 Hyperlipidemia, unspecified; I11.0 Hypertensive heart disease with heart failure; I50.9 Heart failure, unspecified; Z79.82 Long term (current) use of aspirin; Z79.899 Other long term (current) drug therapy; Z88.8 Allergy status to other drugs, medicaments and biological substances; Z95.1 Presence of aortocoronary bypass graft; Z95.818 Presence of other cardiac implants and grafts
CPT/HCPCS: 93312; J2001; J2704; J3010

== ENCOUNTER 2019-01-04 15:25 | Outpatient (CLI) | payer MEDICARE | END 2019-01-04 15:26 | disposition home or self-care (01) | LOC: CTENTCT 15:25 | PROVIDERS: ATTEND Otolaryngology Plastic Surgery within the Head & Neck | DX: J32.9 Chronic sinusitis, unspecified (principal) | CPT/HCPCS: 70486 ==

== ENCOUNTER 2019-01-22 09:34 | Outpatient (CLI) | payer MEDICARE | END 2019-01-22 09:35 | disposition home or self-care (01) | LOC: BICCT 09:34 | PROVIDERS: ATTEND Internal Medicine Cardiovascular Disease | DX: Z01.812 Encounter for preprocedural laboratory examination (principal); I48.91 Unspecified atrial fibrillation; R06.02 Shortness of breath | CPT/HCPCS: 82565 ==

== ENCOUNTER 2019-03-03 12:25 | Observation (INO) | payer MEDICARE ==
[2019-03-03 17:03] VITALS: BMI 25.2
[2019-03-03] MEDS ORDERED: Ondansetron PF 4 MG/2 ML Vial SLOW IVP PRN (17:03)
[2019-03-03] MEDS ORDERED: Pepto Bismol Chew TAB PO PRN (17:03)
[2019-03-03] MEDS ORDERED: Acetaminophen 325 MG TAB PO PRN (17:03)
[2019-03-03] MEDS ORDERED: Acetaminophen 650 MG Suppository PR PRN (17:03)
[2019-03-03 17:30] LABS: Hemoglobin 10.6 g/dL (14.0-18.0); Mean Corpuscular HGB CONC 34.5 g/dL (32.0-36.0); Mean Corpuscular Hemoglobin 34.1 pg (27.0-31.0); Mean Corpuscular Volume 98.7 fL (78.0-98.0); Mean Platelet Volume 9.3 fL (7.4-10.4); Platelet Count 159 thou/uL (130-400); RBC Distribution Width 15.1 % (11.5-14.5); White Blood Cell (WBC) Count 7.5 thou/uL (4.8-10.8)
[2019-03-03 17:45] LABS: Anion Gap 14 mmol/L (10-20); BUN (Urea Nitrogen) 22 mg/dL (8.4-25.7); Calc. Creatinine Clearance 37 mL/min (70-130); Calcium 9.7 mg/dL (7.8-10.44); Carbon Dioxide 25 mmol/L (23-31); Chloride 104 mmol/L (98-107); Estimated GFR-MDRD 44; Glucose 81 mg/dL (83-110); Potassium 4.3 mmol/L (3.5-5.1); Sodium 139 mmol/L (136-145)
[2019-03-03 17:49] LABS: Anisocytosis SLIGHT = 6-15 cells (100X) (0-5/hpf); Band 3 % (5-11); Lymphocytes 24 % (21-51); MDiff Complete? YES; Monocytes 9 % (0-10); Neutrophil 64 % (42-75); Ovalocytes SLIGHT = 2-5 cells (100X) (0-1/hpf); Platelet Morphology Comment Appears Adequate; Polychromasia SLIGHT = 2-3 cells (100X) (0-2/hpf); Schistocytes SLIGHT = 2-5 cells (100X) (0-1/hpf)
[2019-03-03] MEDS: Sodium Chloride 0.9% 1,000 ML IV SCH (18:21)
[2019-03-03] MEDS ORDERED: Arformoterol 15 MCG/2 ML NEB ONE (18:59)
[2019-03-03] MEDS: Arformoterol 15 MCG/2 ML NEB NEB SCH (19:09)
[2019-03-03] MEDS ORDERED: Loratadine 10 MG TAB PO SCH (21:00)
[2019-03-03] MEDS ORDERED: Atorvastatin Calcium 20 MG TAB PO SCH (21:00)
[2019-03-03] MEDS ORDERED: traMADol HCl 50 MG TAB PO PRN (22:00)
[2019-03-03] MEDS: Famotidine/PF 20 mg/2ml Vial SLOW IVP SCH (22:23)
[2019-03-03] MEDS: Carvedilol 6.25 MG TAB PO SCH (22:23)
[2019-03-04] MEDS: Sodium Chloride 0.9% 1,000 ML IV SCH (02:02)
[2019-03-04] MEDS ORDERED: Sodium Chloride 0.9% 1,000 ML IV SCH (06:00)
[2019-03-04] MEDS ORDERED: Fluticasone Propionate Nasal Spray 16 gm Bottle NASAL SCH ×2 (06:30→09:00)
[2019-03-04] MEDS ORDERED: Budesonide 0.5 MG/2 ML NEB NEB SCH (06:30)
[2019-03-04] MEDS: Arformoterol 15 MCG/2 ML NEB NEB SCH (06:38)
[2019-03-04] MEDS: Carvedilol 6.25 MG TAB PO SCH (08:52)
[2019-03-04] MEDS: Fish Oil 1,000 MG CAP PO SCH ×2 (08:52→09:08)
[2019-03-04] MEDS: Famotidine/PF 20 mg/2ml Vial SLOW IVP SCH (08:55)
[2019-03-04] MEDS ORDERED: Azelastine 137 MCG/Spray 30 ML NS SCH (09:00)
[2019-03-04] MEDS ORDERED: Loratadine 10 MG TAB PO SCH (09:00)
[2019-03-04] MEDS ORDERED: Clopidogrel Bisulfate 75 MG TAB PO SCH (09:00)
[2019-03-04] MEDS ORDERED: Ascorbic Acid 500 mg Chewable Tablet PO SCH (09:00)
[2019-03-04] MEDS ORDERED: Tamsulosin HCl 0.4 MG CAP PO SCH (09:00)
[2019-03-04] MEDS ORDERED: Aspirin 81 mg Enteric Coated Tablet PO SCH (09:00)
[2019-03-04] MEDS ORDERED: Multivitamin W/ Minerals 1 TAB PO SCH (09:00)
[2019-03-04] MEDS ORDERED: Cyanocobalamin (Vitamin B-12) 1,000 MCG TAB PO SCH (09:00)
[2019-03-04] MEDS ORDERED: Iopamidol 370 76% 100 ML VIAL ONE (11:39)
[2019-03-04 13:31] VITALS: BP 148/96; TEMP 97.6
[2019-03-05] MEDS ORDERED: Famotidine/PF 20 mg/2ml Vial SLOW IVP SCH (09:00)
--- NOTE | 2019-03-22 19:02 | OP ---
DATE OF PROCEDURE: 03/03/2019 PREPROCEDURE DIAGNOSIS: Nonhealing ulcer. POSTPROCEDURE DIAGNOSIS: Severe peripheral vascular disease. PROCEDURES PERFORMED: 1. Aortogram. 2. Bilateral aortofemoral runoff. COMPLICATIONS: None. TOTAL SEDATION TIME: 30 minutes. DESCRIPTION OF PROCEDURE: The patient was draped and prepped in sterile fashion. Access was obtained in right femoral artery under ultrasound guidance. A 5-Setswana sheath was placed. A Contra catheter was placed in the aorta with images performed. It was then placed in the contralateral segment, but only in the iliac region due to significant tortuosity with images performed. FINDINGS: The aorta has no significant stenosis or aneurysm. Left lower extremity - the common iliac, external iliac, and common femoral arteries appeared to have significant calcification present. There appeared to be areas that were difficult to assess flow-limiting leary due to heavy calcification. The proximal portion of the popliteal artery does have significant calcification with likely 60% to 70% stenosis. The anterior tibial artery does have a 99% stenosis. The anterior tibial artery does have an ostial 90% stenosis. The posterior tibial artery is completely occluded. There was diffuse disease present in the peroneal and tibioperoneal artery and the anterior tibioperoneal artery. IMPRESSION: Severe peripheral vascular disease. RECOMMENDATIONS: 1. Continue wound care. 2. Staged intervention versus femoral-popliteal bypass. Job ID: [id number]
== END 2019-03-04 13:30 | disposition home or self-care (01) ==
LOC: 2SW 16:12 → 2NO 20:46
PROVIDERS: ADMIT Internal Medicine Cardiovascular Disease; ATTEND Internal Medicine Cardiovascular Disease
DX: I73.9 Peripheral vascular disease, unspecified (principal); I48.0 Paroxysmal atrial fibrillation; I13.0 Hypertensive heart and chronic kidney disease with heart failure and stage 1 through stage 4 chronic kidney disease, or unspecified chronic kidney disease; E11.22 Type 2 diabetes mellitus with diabetic chronic kidney disease; N18.9 Chronic kidney disease, unspecified; I50.9 Heart failure, unspecified; I25.10 Atherosclerotic heart disease of native coronary artery without angina pectoris; E78.5 Hyperlipidemia, unspecified; J98.9 Respiratory disorder, unspecified; Z95.1 Presence of aortocoronary bypass graft; Z88.5 Allergy status to narcotic agent; Z79.82 Long term (current) use of aspirin; Z79.899 Other long term (current) drug therapy
CPT/HCPCS: 36245; 75710; 76942; 80048; 85025; 94640 ×3; 96361 ×2; 96374; 96376; C1769 ×2; C1887 ×2; G0378; G0379; 36415; J7620; Q9967; S0028

== ENCOUNTER 2019-04-07 11:32 | Outpatient (CLI) | payer MEDICARE ==
[~2019-04-07 11:32] MED LIST: Sodium Chloride 0.9% 15 ML NEB ONE
--- NOTE | 2019-04-08 00:19 | HP ---
HISTORY OF PRESENT ILLNESS: Mr. Steve Campbell is a very pleasant 83-year-old gentleman, accompanied by his caregiver who [facility] evaluation of an ulceration of the left lateral foot. The patient's caregiver states that the ulceration has been present for approximately 2 months. The patient has been receiving dressing changes of Medihoney for the left foot ulceration. The patient's caregiver also states that Mr. Campbell has been seen in consultation by Dr. Sergio Whitmore. She states that the patient is scheduled to be seen in consultation by Dr. Lizama next week. PAST MEDICAL HISTORY: 1. Hypertension. 2. History of colon carcinoma. 3. Arthritis. 4. History of nephrolithiasis. 5. Coronary artery disease. 6. Atrial fibrillation/atrial flutter. 7. Anemia. 8. Congestive heart failure. 9. Gastroesophageal reflux disease. 10. Peripheral vascular disease. 11. Asthma. PAST SURGICAL HISTORY: 1. Back surgery x2. 2. Surgery for colon carcinoma. 3. Coronary artery bypass grafting. 4. Knee arthroscopy. 5. Shoulder surgery. 6. Neck surgery. 7. Pacemaker insertion. 8. Watchman device placement. MEDICATIONS: 1. Coreg. 2. Clopidogrel. 3. Atorvastatin. 4. Lasix. 5. Potassium. 6. Ondansetron. 7. Tramadol. 8. Nexium. 9. Aspirin. 10. [place] XL. 11. D3 50. 12. Vitamin B12. 13. Alpha [employer] Energy. 14. Cetirizine. 15. Brovana. 16. Budesonide. 17. Albuterol. 18. Azelastine. 19. Vitamin C. 20. Tamsulosin. ALLERGIES: MIRTAZAPINE, SERTRALINE, MORPHINE. SOCIAL HISTORY: Social history is negative for tobacco use. The patient admits to the consumption of one glass of wine per day for over 10 years. FAMILY HISTORY: Family history is negative for diabetes mellitus or coronary artery disease. PHYSICAL EXAMINATION: VITAL SIGNS: Temperature 97.7, pulse 81, respirations 21, blood pressure 117/82. GENERAL: An 83-year-old gentleman, lying on table in examination room, in no acute distress. HEENT: Normocephalic, atraumatic. NECK: No nuchal rigidity. CHEST: Clear to auscultation. CV: Regular rate and rhythm. ABDOMEN: Soft. EXTREMITIES: An ulceration of the left lateral foot is present which measures approximately 0.3 x 0.2 cm. No purulent drainage is associated with the wound. No erythema of the skin surrounding the wound is present. No maceration of the skin of the periwound is noted. A dorsalis pedis pulse or posterior tibial pulse is not palpable on the left. No significant edema of the left foot is present on exam today. NEURO: Grossly nonfocal. ASSESSMENT AND PLAN: 1. Ulceration of left lateral foot as described above. Dressing changes of Medihoney will be continued. The patient has been reassured that the ulceration is healing without complications or any signs of infection. The patient is to keep his appointment with Dr. Lizama next week. I will see Mr. Campbell again as needed after his evaluation by Cardiovascular Surgery. The patient and his caregiver understand and are in agreement with the preceding treatment plan. 2. Hypertension. 3. History of colon carcinoma. 4. Arthritis. 5. History of nephrolithiasis. 6. Coronary artery disease. 7. Atrial fibrillation/atrial flutter. 8. Anemia. 9. Congestive heart failure. 10. Gastroesophageal reflux disease. 11. Peripheral vascular disease. 12. Asthma. Job ID: [id number]
== END 2019-04-07 11:33 | disposition home or self-care (01) ==
LOC: WCC 11:32
PROVIDERS: ATTEND Family Medicine
DX: L97.529 Non-pressure chronic ulcer of other part of left foot with unspecified severity (principal); I11.0 Hypertensive heart disease with heart failure; I50.9 Heart failure, unspecified; M19.90 Unspecified osteoarthritis, unspecified site; I25.10 Atherosclerotic heart disease of native coronary artery without angina pectoris; D64.9 Anemia, unspecified; K21.9 Gastro-esophageal reflux disease without esophagitis; I73.9 Peripheral vascular disease, unspecified; J45.909 Unspecified asthma, uncomplicated; Z87.442 Personal history of urinary calculi; Z85.038 Personal history of other malignant neoplasm of large intestine
CPT/HCPCS: 97602; 99203; A4218; G0463

== ENCOUNTER 2019-05-03 15:25 | Inpatient (IN) | payer MEDICARE ==
[2019-05-03] MEDS ORDERED: Furosemide 40 MG/4 ML VIAL ONE (16:05)
[2019-05-03] MEDS ORDERED: Fentanyl 100 MCG/2 ML VIAL ONE (16:05)
--- NOTE | 2019-05-03 17:12 | ULT ---
GALLBLADDER ULTRASOUND: HISTORY: Abdominal pain. Shortness of breath. Nausea and vomiting. COMPARISON: Prior CT from 05/03/2019. Prior gallbladder ultrasound from 09/30/2017. FINDINGS: Abnormal liver echogenicity with some minimal nodularity, raising concern for the possibility of cirr hosis. Moderate ascites. Large mass in the gallbladder, which contains soft tissue density, as well as some areas of calcification or ossification. The overall size of this intraluminal mass measures approximately 2.9 x 3.1 x 8.5 cm, almost filling the lumen of the gallbladder. No evidence for gall bladder wall thickening. The common bile duct is 0.4 cm. The visualized right kidney and pancreas are unremarkable. IMPRESSION: 1. Somewhat coarse, heterogeneous liver echogenicity, as well as some liver contour irregularity, co ncerning for the possibility of cirrhosis. 2. Moderate ascites. 3. Abnormal large filling defect within the gallbladder, taking the shape of the gallbladder, contai pat soft tissue, as well as calcific or ossific components, possibly representing a huge sludge ball surrounding multiple stones. The possibility of this representing a neoplastic process, I feel, is somewhat less likely, given its well defined margins, without evidence for obvious gallbladder wall i nvasion. 4. No common duct dilatation. 5. Prior examination of 09/30/2017 demonstrated a moderate amount of layering sludge in the gallblad hermes. POS: [facility]
[2019-05-03 17:43] LABS: CKMB 9.6 ng/mL (0-6.6)
[2019-05-03] MEDS ORDERED: Ondansetron ODT 4 MG TAB SL PRN (18:26)
[2019-05-03] MEDS ORDERED: Acetaminophen 325 MG TAB PO PRN (18:26)
[2019-05-03] MEDS ORDERED: Ondansetron PF 4 MG/2 ML Vial IVP PRN (18:26)
[2019-05-03] MEDS ORDERED: Fentanyl 100 MCG/2 ML VIAL SLOW IVP PRN (18:27)
--- NOTE | 2019-05-03 18:30 | PDOC.FPRHP ---
- History of Present Illness Chief Complaint: Abdominal, N/V History of Present Illness: 83 yo male presents as a transfer from [facility] for nausea, vomiting, abdominal pain, and jaundice. Pt presents with his and caregiver who added to his history. For the past few weeks pt has had increased intermittent confusion, episodic vomiting at night, decreased appetite, and more recently diffuse abdominal pain. Pt was seen at [facility] 2 days ago for increased shortness of breath and was dx with bronchitis and put on azithromycin. Caregiver stated that she returned from being out of town yesterday and noticed that the pt was more confused and was complaining of worsening shortness of breath, abdominal pain, N/V, and she noticed that his skin looked more yellow. Pt was subsequently brought to [facility] before being transferred here for higher level of care/surgery consult for gallbladder disease. When asked if the pt drinks alcohol the pt's stated that he drinks every so often at meals, however the caregiver indicated that he drinks much more than this, at the very least wine with every meal. At the time of evaluation the pt complains of shortness of breath, weakness, dizziness, and diffuse abdominal pain, 5/10. [facility] workup included CT abdomen showed moderate ascites with probable gallstones and moderate bilateral pleural effusions. Labs were significant for elevated LFT's/bilirubin, WBC, BNP, and indeterminate level troponins. Ultrasound here showed possible cirrhosis and an intraluminal gallbladder mass that was described as a likely sludge ball vs less likely neoplasm. Pt has history of watchmen device placement and is ventricularly paced. Most recent echo report shows and EF of 40-45%. Recent diagnosis of skin cancer found on his left upper eyelid, referred to MD [facility], still pending evaluation. - Allergies/Adverse Reactions Allergies Allergy/AdvReac Type Severity Reaction Status Date / Time mirtazapine Allergy Severe ANGIOEDEMA Verified 05/03/19 21:59 sertraline Allergy Severe HALLUCINATI Verified 05/03/19 21:59 ONS morphine Allergy Intermediate HALLUCINATION, Verified 05/03/19 21:59 CONFUSED - Home Medications Medication Instructions Recorded Confirmed Type Arformoterol [Brovana] 15 mcg NEB BID 06/16/18 05/03/19 History Aspirin [Aspirin EC] 81 mg PO DAILY 06/16/18 05/03/19 History Esomeprazole Magnesium [NexIUM] 20 mg PO QAM-WM 06/16/18 05/03/19 History Carvedilol [Coreg] 6.25 mg PO BID 07/02/18 05/03/19 History Ondansetron [Zofran Odt] 4 mg PO Q4HR PRN #20 tab.rapdis 07/05/18 05/03/19 Rx traMADol HCl [Ultram] 1 - 2 tab PO Q8HR PRN 11/09/18 05/03/19 History Azelastine [Azelastine 137 mcg 1 - 2 spray EA NARE DAILY 03/03/19 05/03/19 History (0.1%) Nasal [employer]] Budesonide 0.5 mg IH BID 03/03/19 05/03/19 History Clopidogrel Bisulfate [Plavix] 75 mg PO DAILY 03/03/19 05/03/19 History Cyanocobalamin (Vitamin B-12) 5,000 mcg PO DAILY 03/03/19 05/03/19 History [Vitamin B12] Multivitamin [Multivitamins] 1 cap PO DAILY 03/03/19 05/03/19 [address] [employer] [place]-3 Fatty Acids/Fish Oil 1 cap PO DAILY 03/03/19 05/03/19 History [[employer] [place] 3 Fish Oil Softgel] Tamsulosin HCl [Flomax] 0.4 mg PO DAILY 03/03/19 05/03/19 History Albuterol Sulfate [Ventolin] 0.5 ml NEB BID 05/03/19 05/03/19 History [employer] 1 tab PO DAILY 05/03/19 05/03/19 History Atorvastatin Calcium 20 mg PO DAILY 05/03/19 05/03/19 History Cholecalciferol (Vitamin D3) 5,000 mcg PO DAILY 05/03/19 05/03/19 History [Vitamin D3] Furosemide 40 mg PO DAILY 05/03/19 05/03/19 History Potassium Chloride [K-Dur] 20 meq PO DAILY 05/03/19 05/03/19 History - History PMHx: HTN, CAD, HLD, hypertriglyceridemia, Afib-pace maker, GERD, cervical stenosis, recurrent aspiration PSHx: Watchmen device placement (09/2018), cervical laminectomy, left shoulder surgery, colon surgery, quadruple coronary bypass (2006), spinal fusion Social: Pt and report glass of wine with meal, caregiver voices concern about likely more alcohol consumption than reported. Pt lives at home with and delivery architect - Review of Systems General: reports: weight/appetite/sleep changes (decreased appetite), fatigue. denies: fever/chills, night sweats Respiratory: reports: cough, shortness of breath Cardiovascular: denies: chest pain, palpitation, edema Gastrointestinal: reports: nausea, vomiting, abdominal pain. denies: diarrhea Skin: reports: jaundice Musculoskeletal: denies: pain, swelling Neurological: reports: weakness - Vital signs BP: 114/89 HR: 79 RR: 17 Tmax: 98.7 Pox: 96% on 2L Wt: [] - Physical Exam Constitutional: NAD HEENT: normocephalic and atraumatic, EOMI -HEENT: +scleral icterus Neck: FROM -Neck: JVD in upright position Heart: RRR, normal S1/S2, pulses present, no edema Lungs: no respiratory distress -Lungs: Shallow breaths, decreased lung sounds in bilateral lower mcg[place] -Abdomen: Soft, diffusely tender, distended abdomen - moderately resonant to percussion, no obvious peritoneal signs Musculoskeletal: normal structure Neurological: no focal deficit -Neurological: Pt answers questions indirectly, difficult to assess mental status, caregiver states he is more confused than his baseline -Skin: Senile bruises to all extremities, +jaundice -Psychiatric: Remote memory seems well intact, looks to and caregiver for assistance with questions of recent memory FMR H&P: Results - Labs Result Diagrams: 05/04/19 04:13 05/04/19 04:13 Lab results: CK-MB (CK-2) 9.6 ng/mL (0-6.6) H* 05/03/19 16:46 - Radiology Interpretation CT scan - abdomen Status: report reviewed by me (Moderate bilateral pleural effusions, moderate developing ascites, probable gallstones) US - abdomen Status: report reviewed by me (Possible cirrhosis, moderate ascites, intraluminal gallbladder mass - most likely sludge ball, less likely neoplasm) Chest x-ray Status: report reviewed by me (cardiomegaly, left lower lobe atelectasis vs infiltrate, left pleural effusion vs pleural thickening) FMR H&P: A/P - Problem List (1) Transaminitis Current Visit: Yes Status: Acute Code(s): R74.0 - NONSPEC ELEV OF LEVELS OF TRANSAMNS & LACTIC ACID DEHYDRGNSE (2) Congestive heart failure (CHF) Current Visit: Yes Status: Acute Code(s): I50.9 - HEART FAILURE, UNSPECIFIED (3) Ascites Current Visit: Yes Status: Acute Code(s): R18.8 - OTHER ASCITES (4) Jaundice Current Visit: Yes Status: Acute Code(s): R17 - UNSPECIFIED JAUNDICE (5) Leukocytosis Current Visit: Yes Status: Acute Code(s): D72.829 - ELEVATED WHITE BLOOD CELL COUNT, UNSPECIFIED - Plan Cholangitis vs Cholelithiasis vs Cholecystitis Elevated transaminases, bilirubin, and alk phos with leukocytosis RUQ US and abd CT showed sludge ball vs neoplasm without CBD or GB distension, possible cirrhosis, moderate ascites -started on Zosyn -has remained afebrile to this point -ammonia 17 -surgery and GI consulted -does not meet septic criteria at this time -holding IV fluids due to concurrent CHF -zofran prn N/V -trending CMP and CBC Congestive heart failure Most recent EF 40-45% (09/21/2017), CXR and Abd CT note moderate bilateral pleural effusions, possible LLL infiltrate, indeterminate Troponins, BNP 3621 Has been experiencing increased SOB, visible JVD, no peripheral edema, double lasix dose yesterday at home -40mg IV Lasix BID -alan catheter, BPH -Echo ordered for tomorrow -Consult cardiology tomorrow -supplemental O2 as needed -trend troponins Acute transaminitis - possible cirrhosis Elevated LFT's, PT, PTT. RUQ US and abd CT showed moderate ascites, coarse heterogeneous echogenicity of the liver with irregular liver contour concerning for possible cirrhosis Reported alcohol consumption by pt and is within acceptable limits, caregiver expresses concern about possibility of increased consumption -GI consulted -increased confusion recently, ammonia level 17 -hepatitis panel pending -Hepatic changes may be due to acute obstructive process vs chronic injury Disposition/LOS: Dispo: Admit to inpatient telemetry LOS: Expected to be >48 hrs FMR H&P: Upper Level - Plan Date/Time: 05/03/19 2363 HPI: This is an 83 yo coming in with multiple issues, chief being CHF exacerbation, suspected cholangitis vs mass of gallbladder, and acute transaminitis. He was in process of establishing care at [facility] for skin cancer. The patient was sent to the ED by caregiver today who noted that he was not acting his normal self. Patient has gained 10lbs in last 1-2 months. He has chronic dry cough. He states that in the last month or so it has become difficult to walk across his house which is new for him. He denies chest pain, palpiations, or orthopnea. The patient also has RUQ abdominal pain going on for at least a month but now worse. HE denies N/V/D. He denies fevers, chills, swetas. States pain does not radiate. States he has been having trouble swallowing since having and anterior cervical laminectomy. Per caregiver, yellowing of his skin is new in last week or so. REVIEW OF SYSTEMS: Gen: no fever, chills, or sweats Neuro: no numbness/tingling, denies headache Eyes: no visual changes ENT: no hearing changes, no sore throat, no runny nose Resp: +dry cough, denies SOB Card: see hpi GI: see hpi : no dysuria, no hematuria MSK: no myalgia, no joint pain/stiffness Skin: no rash, no erythema PHYSICAL EXAMINATION: General: NAD, alert and oriented x3 HEENT: PERRLA, EOMI, normal sclera, oropharynx without erythema or exudate, scleral icterus Neck: Supple. Full ROM. Heart/Cardiovascular System: RRR, Cap refill < 3 seconds, no rub, no murmur Lungs/Respiratory System: clear to auscultation bilaterally. No increased work of breathing. Mild decreased breath sounds at bases bilaterally Abdomen/Gastro-Intestinal System: mild distension, tender throughout, no guarding or rigidity Extremities: Warm extremities. Trace edema at the ankles biltaerally Neuro: No gross deficits appreciated. CN 2-12 grossly intact Psychiatry: Awake, Alert and cooperative with exam Skin: No lesions, rashes, or ulcers Musculoskeletal: Full ROM A/P: # Cancer of gall bladder vs Cholangitis - Transaminitis, bili 7.1, WBC 16.4, ALP 94 - RUQ shows sludge, stones, likely mass in gallbladder - Surgery consulted, indicates patient would likely need surgery but not stable 2/2 CHF at this time, will follow - Cont Zosyn, trend lactic, no hypotension or AMS # CHF - BNP on 7/2 1505 -> 3621 today - Up 10lbs, on Lasix 40mg PO daily at home - Last known EF 40-45%, ordered echo - Lasix 40mg BID, CXR shows effusion vs atelectasis will follow # Transaminitis - Ammonia 16, will check hepatits panel, INR 1.3 - Consider hepatic congestion 2/2 CHF and above mass, mets from skin cancer, or hepatitis as source - GI consulted, appreciate recs # Type II OH - Trend trop, likely demand # A fib - home meds # HTN - home meds Fluids: TKO Code status: DNR- confirmed with patient and PPx: heparin, SCD Dispo: >2 nights Addendum - Attending - Attending Attestation Date/Time: 05/03/192020 I personally evaluated the patient and discussed the management with resident team I agree with the History, Examination, Assessment and Plan documented above with any addition or exceptions noted below. 83 yo male with multiple medical conditions as stated above presents today as a transfer from outside facility due to gallbladder disease. Patient has been seen twice this week in ER for continued complaints of fatigue , weakness, fever, chills, abdominal pain, SOB, decreased appetite. Last ER visit dx and treated for bronchitis. Returned again today for change in mental status, increasing abdominal pain, and jaundice. On review patient has noted to have evidence of a progressive cholestasis picture from 2017. Imaging present with some gallbladder and pancreatic changes.Today imaging was impressive for large gallbladder mass/sludge ball with stones and concerns for cirrhosis. Common duct was noted to be fairly normal in caliber. Based on exam, history, and labs patient was subsequently dx with suppicion for cholangitis. Antibiotics were started. Labs to be trending. Add procal. Due to significant gallbladder mass/sludge Gen Surg was consulted. Appreciate recs but likely will hold on surgical intervention at this time. Ascites and possible need for ERCP/MRCP/US this hospital stay, GI to be consulted in AM. Patient also with acute HF exacerbation. Will continue to diuresis. Monitor trop due to risk for ischemia. ECHO to be reviewed. BNP has been in the 1000's pretty frequently since 2017. Cards to be consulted in AM. Will need to balance fluids closely. Patient at risk for overload due to need for some fluids due to infectious process. Patient with hx of CKD. For most part appears to be baseline but slightly elevated Cr. Monitor for risk for increase with need for Lasix. Will need to stop all renal toxic medications. Nephro as needed. Renally dose all medications. Adjust home meds as indicated. DVT ppx needed. Pancho
[2019-05-03] MEDS ORDERED: Piperacillin/Tazobactam 3.375 GM in Sodium Chloride 0.9% 100 ML IVPB SCH (19:00)
[2019-05-03 20:09] LABS: Troponin I 0.073 ng/mL (< 0.028)
[2019-05-03] MEDS ORDERED: Furosemide 40 MG/4 ML VIAL SLOW IVP SCH (21:15)
--- NOTE | 2019-05-03 21:33 | CON ---
DATE OF CONSULTATION: 05/03/2019 CONSULTING PHYSICIAN: Violeta Reddy MD REASON FOR CONSULTATION: Cholelithiasis, possible cholecystitis, jaundice. HISTORY OF PRESENT ILLNESS: The patient is a chronically ill 83-year-old white male. He lives in [place] at home with his and a bus girl. His bus girl is present at bedside with him and is of great assistance here on the telemetry unit. She took him to the emergency room in [place] earlier today, because he was not in his usual self. He was substantially weaker than usual. He is having a harder time breathing and became short of breath with minimal activity. Apparently, he did not really complain of pain to her, but he does note that he does have some abdominal pain, little appetite, and that he has pain if his belly is examined. He has a long history of multiple medical problems, most prominently including congestive heart failure. In the emergency room, he had laboratory studies performed. This revealed a series of abnormalities. He had gone to the emergency room 2 days ago and at that time, his white blood cell count was normal at 10, today at 16.4 with a significant left shift. His chemistry profile revealed that his bilirubin was significantly elevated at 7.9 which was up from 4.4, 2 days ago. His baseline bilirubin is normal and his bilirubin was 1.0 in October. He has had bilirubin elevations over the past couple of years, however. His lipase is slightly elevated at 294. He had lipase elevations in September of 2017. His baseline lipase however is normal. Also, his troponin level is elevated at 0.07. It is noted that his troponin level is always elevated and over the past three years, it has never been less than 0.05 (presumably related to his congestive heart failure). A CT scan was obtained while in [place] revealing that he has ascites, bilateral pleural effusions and probable gallstones. As his creatinine is a little elevated, intravenous contrast was not utilized. An ultrasound was then obtained upon his arrival to this facility revealing a large mass that almost appears to be tissue inside his gallbladder measuring 3 x 3 x 8 cm, almost filling the lumen of the gallbladder. There appeared to be some calcifications within this. The radiologist felt it was most consistent with a large sludge ball containing multiple stones. I felt that a neoplastic process was less likely as it did not appear to be invasive of the surrounding tissue, but rather growing freely within the lumen. Previous gallbladder ultrasound in September 2017, revealed a moderate amount of layering sludge. After arriving to this emergency room, he was admitted to the [facility] service. Not mentioned above is that his BNP, beta natriuretic peptide is markedly elevated at 3600. This is always elevated every time it has been checked in the past 4 years, but this is the highest it has ever been. PAST MEDICAL HISTORY: 1. Hypertension. 2. History of colon cancer. 3. Arthritis. 4. History of nephrolithiasis. 5. Coronary artery disease (status post CABG). 6. Atrial fibrillation (status post Watchman procedure). 7. History of anemia. 8. Substantial congestive heart failure. 9. Gastroesophageal reflux disease. 10. Peripheral vascular disease. 11. Asthma. PAST SURGICAL HISTORY: 1. Back surgery x6. 2. Surgery for colon cancer. 3. Coronary artery bypass surgery about 10 years ago. 4. Knee surgery. 5. Shoulder surgery. 6. Neck surgery. 7. Pacemaker insertion. 8. Watchman device placement within the past 3 or 4 years. MEDICATIONS: He has a lengthy list and these include: 1. Coreg. 2. Plavix. 3. Atorvastatin. 4. Lasix. 5. Potassium. 6. Zofran. 7. Tramadol. 8. Hydrocodone. 9. Nexium. 10. Aspirin. 11. Series of vitamins. He also received breathing treatments using albuterol. He was recently placed on Flomax, although his bus girl is uncertain if it is yielding any benefits. ALLERGIES: MIRTAZAPINE, SERTRALINE, AND MORPHINE. PERSONAL AND SOCIAL HISTORY: He is and is present at bedside. He has 3 grown children. He has never been a heavy drinker. He drinks a glass of wine about once per day. REVIEW OF SYSTEMS: Otherwise unremarkable. FAMILY HISTORY: Noncontributory. PHYSICAL EXAMINATION: VITAL SIGNS: Temperature is 97.9, pulse 82, blood pressure is 136/82, oxygen saturation is apparently 100% on 3 L nasal cannula. HEAD, EYES, EARS, NOSE, AND THROAT: Unremarkable, although he does have scleral icterus. NECK: Supple. LUNGS: Clear to auscultation. CARDIAC: Appears to be regular rhythm to auscultation, although heart sounds are relatively faint. ABDOMEN: Mildly protuberant, not really distended and soft. He claims significant tenderness with palpation, worse on the right than on the left. I am unable to definitely palpate his liver, but he does complain of discomfort in the right upper quadrant. EXTREMITIES: Unremarkable. He apparently had a lesion on his lateral left foot that has subsequently healed recently. LABORATORY DATA: Labs are as referenced above. He does have some electrolyte abnormalities with low levels of sodium chloride and CO2. Creatinine is about 1.66, which is close to baseline for him. His lactate level is a little elevated at 2.6. All of his liver function tests are elevated, but none of them are very high. Alkaline phosphatase 247. His albumin level is preserved at 3.7. ASSESSMENT: The patient with what appears to be an exacerbation of his baseline congestive heart failure. This certainly could contribute to hepatic congestion and some elevation of liver function tests, as well as elevation of pancreatic enzymes. He does have significant hyperbilirubinemia. Reportedly, the common bile duct was normal in caliber, which would be atypical if he had obstructive jaundice. For now, I would recommend repeating his laboratory studies tomorrow and see what changes occur with these. Appropriately, Gastroenterology has been consulted. For right now, I am not certain that he needs an ERCP. In regard to the abnormal lesion in his gallbladder, at some point, he would almost certainly benefit from a cholecystectomy but he is currently not a surgical candidate due to his underlying cardiac disease. I have spoken with his attending physician this evening. Certainly recommend cardiac evaluation with cardiac optimization and clearance as appropriate. At some point in the near future if he becomes optimized, then he would potentially be an appropriate candidate for a cholecystectomy. If his liver function tests and potentially his lipase continued to go up, then he might require an ERCP first. Given his underlying urinary problems, he may benefit from a Seo catheter placement while he is being diuresed. We will continue to follow along with you during this hospitalization. Job ID: [id number]
[2019-05-03 22:54] LABS: Lactic Acid 1.8 mmol/L (0.5-2.2)
[2019-05-03 23:04] LABS: Troponin I 0.054 ng/mL (< 0.028)
[2019-05-03] MEDS ORDERED: traMADol HCl 50 MG TAB PO PRN (23:52)
[2019-05-04] MEDS ORDERED: traMADol HCl 50 MG TAB PO PRN (00:13)
[2019-05-04 01:50] LABS: HBSAg Index 0.31 S/CO (0-0.99); Hep A IgM AB Non-Reactive (NonReactive); Hep A IgM S/CO 0.35 S/CO (0-0.79); Hep B Surf Ag Non-Reactive S/CO (NonReactive); Hep C IgG Ab Non-Reactive (NonReactive); Hep C Index 0.07 S/CO (0-0.79)
[2019-05-04 01:51] LABS: HBCM Index 0.54 S/CO (0-0.79); Hepatitis B Core IgM Abs Non-Reactive (NonReactive)
[2019-05-04] MEDS ORDERED: Piperacillin/Tazobactam 3.375 GM in Sodium Chloride 0.9% 100 ML IVPB SCH (03:00)
[2019-05-04 05:08] LABS: ALT (SGPT) 43 U/L (8-55); AST (SGOT) 97 U/L (5-34); Albumin 3.2 g/dL (3.4-4.8); Alkaline Phosphatase 197 U/L (40-150); Anion Gap 16 mmol/L (10-20); BUN (Urea Nitrogen) 29 mg/dL (8.4-25.7); Bilirubin, Total 6.5 mg/dL (0.2-1.2); Calc. Creatinine Clearance 38 mL/min (70-130); Calcium 8.8 mg/dL (7.8-10.44); Carbon Dioxide 25 mmol/L (23-31); Chloride 97 mmol/L (98-107); Estimated GFR-MDRD 44; Glucose 77 mg/dL (83-110); Potassium 3.4 mmol/L (3.5-5.1); Protein, Total 5.2 g/dL (5.8-8.1); Sodium 135 mmol/L (136-145)
[2019-05-04 05:11] LABS: Band 10 % (5-11); Hemoglobin 10.3 g/dL (14.0-18.0); Lymphocytes 2 % (21-51); MDiff Complete? YES; Mean Corpuscular HGB CONC 32.7 g/dL (32.0-36.0); Mean Platelet Volume 10.1 fL (7.4-10.4); Monocytes 2 % (0-10); Neutrophil 86 % (42-75); Platelet Count 131 thou/uL (130-400); RBC Distribution Width 16.6 % (11.5-14.5); Red Blood Cell (RBC) Count 3.12 mill/uL (4.70-6.10); White Blood Cell (WBC) Count 15.8 thou/uL (4.8-10.8)
--- NOTE | 2019-05-04 05:43 | PDOC.FM ---
- Subjective Subjective: No acute events overnight. Doing well this morning. Denies chest pain, SOB at rest, and abdominal pain at rest. Continues to report SOB with exertion and abdominal tenderness to palpation. Had 2 BM overnight. Caregiver, , and son were present this morning and caregiver reported that patient had generalized weakness before coming into the ED this morning. Patient reports that he has a livestock sale at 2pm today and would like to return home. Son provided me with POA name and number: Sami Arboleda [phone]. Son is under the impression that patient will likely be agreeable to staying in the hospital. Upon revisiting the patient with [facility] team, patient appeared agreeable to treatment plan, understands cardiology and GI consults have been placed. - Objective Vital Signs & Weight: Vital Signs (12 hours) Temp Pulse Resp BP Pulse Ox 05/04/19 03:02 98.3 F 91 18 125/58 L 92 L 05/03/19 20:00 98 05/03/19 19:00 97.9 F 82 20 136/82 100 05/03/19 18:37 98.0 F 83 18 124/72 73 L Weight Weight 75.024 kg Result Diagrams: 05/04/19 04:13 05/04/19 04:13 Additional Labs: Bili 7.9->6.5 Alk Phos 274->197 Trops: 0.076, 0.073, 0.054 Lactic 2.9->1.8 WBC 16->15.8 ALT/AST 145/58->97/43 CK MB 9.6 BNP 3621 on admission Radiology Reviewed by me: Yes Radiology: 05/03 Abdominal U/s: 1. Heterogenous liver echogenicity, as well as some liver contour irregularity, concerning for the possibility of cirrhosis. 2. Moderate ascites 3. Abnormal large filling defect within the gallbladder, taking the shape of the gallbladder containing soft tissue, as well as calcific or ossific components, possibly representing a huge sludge ball surrounding multiple stones. The possbility of this representing a neoplastic process is less likely given its well defined margins without evidence for obvious gallbladder wall invasion. 05/03 abdomen/pelvis CT: 1. moderate bilateral pleural effusions, greater on the left side 2. developing moderate ascites 3. probable gallstones 05/03 CXR: 1. cardiomegaly 2. LLL atelectasis vs pneumonia 3. left pleural effusion vs left pleural thickening Phys Exam - Physical Examination Constitutional: NAD sclera icteric minimal breath sounds throughout ventricular pacing, normal rate Gastrointestinal: soft, positive bowel sounds TTP RUQ and RLQ, distention Musculoskeletal: pulses present Deviation from normal: diffuse jaundice, ecchymosis throughout forearms, lower legs Dx/Plan (1) Ascites Code(s): R18.8 - OTHER ASCITES Status: Acute (2) Congestive heart failure (CHF) Code(s): I50.9 - HEART FAILURE, UNSPECIFIED Status: Acute (3) Jaundice Code(s): R17 - UNSPECIFIED JAUNDICE Status: Acute (4) Leukocytosis Code(s): D72.829 - ELEVATED WHITE BLOOD CELL COUNT, UNSPECIFIED Status: Acute (5) Transaminitis Code(s): R74.0 - NONSPEC ELEV OF LEVELS OF TRANSAMNS & LACTIC ACID DEHYDRGNSE Status: Acute (6) Afib Code(s): I48.91 - UNSPECIFIED ATRIAL FIBRILLATION Status: Chronic (7) CAD (coronary artery disease) Code(s): I25.10 - ATHSCL HEART DISEASE OF [place] CORONARY ARTERY W/O ANG PCTRS Status: Chronic (8) Dyslipidemia Code(s): E78.5 - HYPERLIPIDEMIA, UNSPECIFIED Status: Chronic (9) HTN (hypertension) Code(s): I10 - ESSENTIAL (PRIMARY) HYPERTENSION Status: Chronic - Plan Plan: #Suspected Cholangitis - likely 2/2 gallbladder obstruction -Elevated transaminases (AST/ALT 145/58-> 97/43), bilirubin (7.9->6.5), and alk phos (274->197) with leukocytosis (WBC 16->15.8) -RUQ US concerning for possible cirrhosis, moderate ascites, no common bile duct dilatation, possibility of large sludge ball surrounded by stones in the gallbladder vs less likely neoplasm 2/2 well defined margins and no evidence of gallbladder wall invasion -started on Zosyn 05/04 -afebrile on admission and overnight -ammonia of 17 -surgery consulted, not certain if ERCP necessary but patient likely would benefit from cholecystectomy. Not a candidate at this time and would need cardiac optimization prior to sx -GI, Dr. Aldridge, consulted, appreciate recs -does not meet septic criteria at this time -holding IV fluids due to concurrent CHF -zofran prn N/V -trending CMP #Congestive heart failure/CAD -Most recent EF 40-45% (09/21/2017) -CXR and Abd CT note moderate bilateral pleural effusions, moderate ascites, possible LLL infiltrate -indeterminate Troponins 0.076, 0.073, 0.054, likely elevated 2/2 CHF as have been indeterminate in past admissions as well -BNP 3621 -Has been experiencing increased SOB, visible JVD, no peripheral edema -Lasix 40mg IV BID -Echo today pending -Cardiology, Dr. Lucas consulted, appreciate recs -supplemental O2 as needed to keep SpO2>92% #Afib with Ventricular Pacing -on tele -v-paced with periods of afib in between pacing -rate in the 70s overnight -continue to monitor #HLD -continue home meds #GERD -continue home meds #HTN -vss -BP this morning 132/65 -on lasix for CHF -on tele, continue to monitor Diet: Heart Healthy DVT Proph: heparin GI Proph: protonix Code Status: DNR-DNI Dispo: inpatient, possible surgery/ERCP pending GI and cards consults Addendum - Attending - Attending Attestation Date/Time: 05/04/19 0007 I personally evaluated the patient and discussed the management with Dr. Peña. I agree with the History, Examination, Assessment and Plan documented above with any addition or exceptions noted below. Pt with jaundice and scleral icterus noted on exam this morning. Pt will continue IV antibiotics. GI and Cardiology are consulted. Continue IV lasix for CHF exacerbation. Echo is pending. Pt needs cardiac clearance prior to surgical intervention.
[2019-05-04] MEDS: Piperacillin/Tazobactam 3.375 GM in Sodium Chloride 0.9% 100 ML IVPB SCH ×3 (05:46→22:22)
[2019-05-04] MEDS: Furosemide 40 MG/4 ML VIAL SLOW IVP SCH ×2 (05:47→13:53)
[2019-05-04] MEDS: Arformoterol 15 MCG/2 ML NEB NEB SCH ×2 (06:49→18:52)
[2019-05-04] MEDS: Albuterol Sulfate 2.5 mg/3 ml Neb NEB SCH ×2 (06:52→18:50)
[2019-05-04] MEDS: Budesonide 0.5 MG/2 ML NEB NEB SCH ×2 (06:53→18:52)
[2019-05-04] MEDS ORDERED: Carvedilol 6.25 MG TAB PO SCH (09:00)
[2019-05-04] MEDS: Heparin 5,000 UNITS/ML VIAL SC SCH ×2 (09:47→13:41)
[2019-05-04] MEDS: Multivitamin W/ Minerals 1 TAB PO SCH (09:48)
[2019-05-04] MEDS: Tamsulosin HCl 0.4 MG CAP PO SCH (09:48)
[2019-05-04] MEDS: Atorvastatin Calcium 20 MG TAB PO SCH (09:48)
[2019-05-04] MEDS: Cyanocobalamin (Vitamin B-12) 1,000 MCG TAB PO SCH (09:48)
[2019-05-04] MEDS: Fish Oil 1,000 MG CAP PO SCH (09:49)
[2019-05-04] MEDS: Aspirin 81 mg Enteric Coated Tablet PO SCH (09:50)
[2019-05-04] MEDS: Potassium Chloride 20 MEQ TAB PO SCH (09:50)
[2019-05-04] MEDS: Azelastine 137 MCG/Spray 30 ML NS SCH (12:07)
[2019-05-04 13:11] LABS: INR-International Normal Ratio 1.4; PTT 45.9 SEC (22.9-36.1); Prothrombin Time 17.3 SEC (12.0-14.7)
[2019-05-04] MEDS: Ondansetron ODT 4 MG TAB PO PRN (13:38)
--- NOTE | 2019-05-04 14:24 | CON ---
DATE OF CONSULTATION: 05/04/2019 REASON FOR CONSULTATION: Jaundice and abnormal liver function profile. HISTORY OF PRESENT ILLNESS: Mr. Campbell is an 83-year-old male from [place] , who had been to the ER in [place] twice before presenting to this ER over the last 5 days. The patient presents with increasing weakness associated with nausea, vomiting, abdominal pain, and jaundice. CT of the abdomen showed cholelithiasis , ascites, bilateral pleural effusions, greater on the left than the right with elevation in his liver profile. Once he presents to [place] ER, gallbladder ultrasound was performed and showed a mass-like effect within the gallbladder, presumably from thick sludge and gallstones, ascites, but without any biliary tree dilation both intrahepatic and extrahepatic. His common duct measured 4 mm. The patient reports noticing jaundice over the last 2 to 3 days. Five days ago, he was prescribed azithromycin and prednisone from his first ER visit for a presumed bronchitis. Currently, he is feeling better with much less shortness of breath. The patient denies having any previous known liver disease, although he does consume mostly wine over many years, which he stopped 5 years ago. He denies any family history of liver disease. The patient has had chronic dysphagia mostly to solid food since his spinal fusion cervical laminectomy in 2014. He has had 2 modified barium swallow studies, most recent in February of last year. He has no problem drinking liquids. PAST MEDICAL HISTORY: 1. Congestive heart failure. 2. Hypertension. 3. Coronary artery disease, status post bypass surgery. 4. Atrial fibrillation, status post Watchman procedure. 5. GE reflux disease. 6. Peripheral vascular disease. 7. Asthma. 8. Status post back surgery. 9. Status post cervical laminectomy. 10. History of colon cancer status post partial colectomy. 11. Pacemaker insertion. 12. Orthopedic Surgery for his knee, shoulder, and neck. MEDICATIONS: 1. Lasix. 2. Tramadol. 3. Nexium. 4. Aspirin 81 mg daily. 5. Multiple supplements. 6. Brovana inhaler. 7. Budesonide inhaler. 8. Albuterol nebulizer. 9. Flomax. SOCIAL HISTORY: The patient is . Lives with his . Has a caregiver , who lives next door. No active tobacco history. He stopped consuming wine 5 years ago. FAMILY HISTORY: Negative for any known GI problem, liver disease, or GI malignancy. REVIEW OF SYSTEMS: Ten-point review of systems did not show any other pertinent positives or negatives. PHYSICAL EXAMINATION: VITAL SIGNS: Temperature is 97.4, blood pressure is 132/65, pulse of 82. GENERAL: He is alert conversant. Apparently, jaundiced. HEENT: Shows icteric sclerae. Oropharynx is clear and moist. NECK: Supple. CV: Shows normal S1 and S2. Irregular rhythm. Normal rate. CHEST: Shows bilateral rhonchi. ABDOMEN: Soft mildly protuberant, nontender. He has active bowel sounds. Liver edge not palpable. EXTREMITIES: Show no edema. LABORATORY DATA: WBCs 15.8, hemoglobin 10.3, and platelet count of 131. Sodium 135, potassium 2.4, chloride 97, CO2 of 25, creatinine 1.51, BUN of 29, bilirubin 6.5, AST of 97, ALT of 43, alkaline phosphatase 197, lipase of 319. IMAGING STUDIES: Abdominal ultrasound showed ascites, filling defect within gallbladder suggestive of stone and sludge. Common duct measured [address] without contrast showed nodular liver, ascites, pleural effusion, gallstone, and normal pancreas. ASSESSMENT: 1. Elevation of liver profile with disproportionately hyperbilirubinemia compared to elevation of liver enzymes. Both CT and ultrasound do not show any obstructive process as there is no evidence of intrahepatic or extrahepatic biliary dilation. I suspect his hyperbilirubinemia is multifactorial, most likely from liver congestion on top of his cirrhosis. In addition, I am concerned there is a possibility of drug-induced hepatitis, especially from azithromycin that was prescribed 5 days prior to this admission from [facility]. There is no utility for any ERCP at this point as there is no evidence of biliary obstruction. 2. Chronic dysphagia since his cervical laminectomy in 2014. The patient had been evaluated twice with modified barium swallow, which does show fairly impaired oropharyngeal dysphagia. Clinically, he does have more problem with solids and liquids. At some point when he is more medically stable, an upper endoscopy could be considered to exclude any esophageal stricture that may need dilatation. 3. Congestive heart failure. 4. Coronary artery disease with chronically elevated troponin I. 5. Atrial fibrillation. 6. Hypertension. 7. Elevation of lipase, mild. No evidence of pancreatitis on CT scan yesterday. RECOMMENDATION: 1. Diagnostic paracentesis to send off for peritoneal fluid, albumin, protein, cell count, and cytology. 2. Continue with diuresis. 3. Continue to trend his liver profile at this point. 4. We will follow. Job ID: [id number] [id number]
--- NOTE | 2019-05-04 20:07 | PRG ---
DATE OF SERVICE: 05/04/2019 SUBJECTIVE: Mr. Campbell remains on the telemetry floor. He is sleeping when I arrived and was not easily arousable. I spoke with his . She tells me he has had minimal appetite today. He is receiving breathing treatments. He was seen in consultation by Dr. Aldridge, who did not recommend ERCP for his hyperbilirubinemia. He felt that this was likely multifactorial. As far as I can gather, he has not yet been seen by Cardiology. PHYSICAL EXAMINATION: VITAL SIGNS: He is afebrile. Pulse is 69, blood pressure is 122/61. LUNGS: Clear to auscultation anteriorly. CARDIAC: Regular rate and rhythm. ABDOMEN: Protuberant but soft with hypoactive bowel sounds. LABORATORY DATA: His chemistry panel reveals his sodium has normalized somewhat as is his chloride level. His carbon dioxide is normal at 25. His creatinine is stable at 1.5. His bilirubin actually dropped from 7.9 to 6.5. AST and ALT also dropped. Alkaline phosphatase dropped as well. His lipase level, however, increased from 294 to 319. His CBC reveals that his white blood cell count has decreased slightly from 16.4 to 15.8. Hemoglobin remained stable at 10.3. ASSESSMENT: The patient with multiple medical comorbidities that are likely producing the congestive heart failure with the ascites. It is still possible that his elevated white blood cell count is related to his gallbladder. He has a large intraluminal mass and cholecystectomy be appropriate if he ever becomes medically stable for this. He should continue medical management for the time being. I will be out of town for the next several days and Dr. Macedo will see him in my absence. Job ID: [id number]
--- NOTE | 2019-05-05 00:25 | CON ---
DATE OF CONSULTATION: HISTORY OF PRESENT ILLNESS: The patient is an unfortunate 83-year-old gentleman who presented with nausea, vomiting, and abdominal discomfort. The patient has a long history of coronary artery disease. He is status post coronary artery bypass graft surgery. He also has had history of atrial fibrillation. The patient has had placement of a Watchman device. The patient also has a history of placement of an electronic pacemaker. The patient most recently underwent procedure for peripheral vascular disease. He was found to have severe bilateral peripheral vascular disease. The patient was admitted with nausea, vomiting, and abdominal swelling. He has been found to have evidence of cholangitis. He may need to undergo surgery. The patient is somnolent. PAST MEDICAL HISTORY: 1. Coronary artery disease. 2. Atrial fibrillation. 3. Hypertension. 4. Peripheral vascular disease. 5. Asthma. 6. Gastroesophageal reflux. PAST SURGICAL HISTORY: Laminectomy and back surgery. SOCIAL HISTORY: Nonsmoker. MEDICINES: See nursing list. ALLERGIES: 1. MORPHINE. 2. SERTRALINE. 3. MIRTAZAPINE. PHYSICAL EXAMINATION: GENERAL: This is an elderly gentleman who is jaundiced with a blood pressure of 116/58. NECK: No jugular venous distention. LUNGS: Clear anteriorly. HEART: Regular rate and rhythm. Normal S1, S2. ABDOMEN: Markedly distended. EXTREMITIES: Showed trace edema. LABORATORY RESULTS: Sodium 135, potassium 3.4, chloride 97, bicarbonate 25, BUN 29, creatinine 1.5. His AST is 97. His white blood cell count is 15.8, hemoglobin 10.3, hematocrit 31.5, and platelet 131. INR is 1.4. IMPRESSION: 1. Cholangitis. 2. History of coronary bypass surgery. 3. History atrial fibrillation. 4. History of Watchman device. 5. History of peripheral vascular disease. 6. History of pacemaker placement. This gentleman presents with cholangitis. He may need to undergo apparently a gallbladder surgery. From a cardiac standpoint, he is certainly at least moderate risk of cardiac complications with his overall poor health. If surgery is deemed necessary, he should be monitored very closely perioperatively. Further recommendations will follow. Job ID: [id number] MTDD
[2019-05-05 04:48] LABS: #Lymphocytes 0.4 thou/uL (1.20-3.40); #Monocytes 1.1 thou/uL (0.11-0.59); %Lymphocytes 2.6 % (21.0-51.0); %Monocytes 6.5 % (0.0-10.0); %Neutrophils 90.9 % (42.0-75.0); Hemoglobin 10.3 g/dL (14.0-18.0); Mean Corpuscular HGB CONC 32.8 g/dL (32.0-36.0); Mean Platelet Volume 9.8 fL (7.4-10.4); Platelet Count 145 thou/uL (130-400); RBC Distribution Width 16.5 % (11.5-14.5); Red Blood Cell (RBC) Count 3.11 mill/uL (4.70-6.10); White Blood Cell (WBC) Count 16.5 thou/uL (4.8-10.8)
[2019-05-05 05:14] LABS: ALT (SGPT) 31 U/L (8-55); AST (SGOT) 55 U/L (5-34); Alkaline Phosphatase 165 U/L (40-150); Anion Gap 16 mmol/L (10-20); BUN (Urea Nitrogen) 28 mg/dL (8.4-25.7); Bilirubin, Total 4.8 mg/dL (0.2-1.2); Calc. Creatinine Clearance 43 mL/min (70-130); Calcium 8.6 mg/dL (7.8-10.44); Carbon Dioxide 26 mmol/L (23-31); Chloride 97 mmol/L (98-107); Estimated GFR-MDRD 52; Globulin 2.2 g/dL (2.4-3.5); Glucose 79 mg/dL (83-110); Lipase 182 U/L (8-78); Protein, Total 5.2 g/dL (5.8-8.1); Sodium 136 mmol/L (136-145)
[2019-05-05 05:16] LABS: Potassium 2.5 mmol/L (3.5-5.1)
--- NOTE | 2019-05-05 05:45 | PDOC.FM ---
- Subjective Subjective: No acute events overnight. Resting comfortably in bed. Tele monitoring: v-paced, some PVCs, few triplets, one or two runs of 4-5, rate in 80s-90s Patient was bathed in preparation for GI plans to do HIDA scan and possible paracentesis this am. Son said patient does not use oxygen at home. Denies cp, sob at rest, abdominal pain at rest. Positive attitude about treatment. - Objective MAR Reviewed: Yes Vital Signs & Weight: Vital Signs (12 hours) Temp Pulse Resp BP Pulse Ox 05/05/19 04:00 98.4 F 69 20 123/54 L 99 05/04/19 20:00 98.0 F 71 20 143/58 H 96 05/04/19 18:52 69 16 97 05/04/19 18:50 69 16 97 Weight Admit Weight 75.024 kg Weight 74.435 kg Not on oxygen at home, per son I&O: 05/03/19 05/04/19 05/05/19 06:59 06:59 06:59 Intake Total 320 340 Output Total 1800 1850 Balance -1480 -1510 Result Diagrams: 05/05/19 04:10 05/05/19 14:28 EKG Reviewed by me: Yes (v-pacing with PVCs) Phys Exam - Physical Examination Constitutional: NAD sclera icteric JVD Respiratory: no wheezing, no rales, no rhonchi decreased breath sounds Cardiovascular: irregular v-paced, few PVCs Gastrointestinal: positive bowel sounds distended, mildly tender to palpation RUQ Musculoskeletal: pulses present, edema present Neurological: non-focal Psychiatric: normal affect Deviation from normal: ecchymosis on bilateral forearms and shins Dx/Plan (1) Ascites Code(s): R18.8 - OTHER ASCITES Status: Acute (2) Congestive heart failure (CHF) Code(s): I50.9 - HEART FAILURE, UNSPECIFIED Status: Acute (3) Jaundice Code(s): R17 - UNSPECIFIED JAUNDICE Status: Acute (4) Leukocytosis Code(s): D72.829 - ELEVATED WHITE BLOOD CELL COUNT, UNSPECIFIED Status: Acute (5) Transaminitis Code(s): R74.0 - NONSPEC ELEV OF LEVELS OF TRANSAMNS & LACTIC ACID DEHYDRGNSE Status: Acute (6) Afib Code(s): I48.91 - UNSPECIFIED ATRIAL FIBRILLATION Status: Chronic (7) CAD (coronary artery disease) Code(s): I25.10 - ATHSCL HEART DISEASE OF [place] CORONARY ARTERY W/O ANG PCTRS Status: Chronic (8) Dyslipidemia Code(s): E78.5 - HYPERLIPIDEMIA, UNSPECIFIED Status: Chronic (9) HTN (hypertension) Code(s): I10 - ESSENTIAL (PRIMARY) HYPERTENSION Status: Chronic (10) Hyperbilirubinemia Code(s): E80.6 - OTHER DISORDERS OF BILIRUBIN METABOLISM Status: Acute (11) Hypokalemia Code(s): E87.6 - HYPOKALEMIA Status: Acute (12) Cholelithiasis Code(s): K80.20 - CALCULUS OF GALLBLADDER W/O CHOLECYSTITIS W/O OBSTRUCTION Status: Acute - Plan Plan: #Hyperbilirubinemia and transaminitis r/o SBP #Cholelithiais with possible cholecystitis -Elevated transaminases (AST/ALT 145/58-> 97/43>55/31), bilirubin (7.9->6.5>4.8) , and alk phos (274->197>165) with leukocytosis (WBC 16->15.8->16.5) -RUQ US concerning for possible cirrhosis, moderate ascites, no common bile duct dilatation, possibility of large sludge ball surrounded by stones in the gallbladder vs less likely neoplasm 2/2 well defined margins and no evidence of gallbladder wall invasion -per report chest/abdomen CT at [place] [facility] showed bilateral effusions and moderate ascites -started on Zosyn 05/04, creatinine 1.31 with GFR 52, increase to 3.375 today -afebrile on admission and throughout stay -ammonia of 17 -surgery consulted, not certain if ERCP necessary but patient likely would benefit from cholecystectomy. Not a candidate at this time and would need cardiac optimization prior to sx -GI consulted, Dr. Aldridge, rec diagnostic paracentesis for peritoneal fluid, albumin, protein, cell count, and cytology analysis. Continue with diuresis, and continue to trend his liver profile -HIDA scan today, results pending -paracentesis likely today 05/05, continue to follow GI recs -vss, does not meet septic criteria at this time -procalcitonin 2.22 05/05 -lipase 182 today, down from 294 in [place] [facility] 05/03, 319 05/04, continue to trend and consider abdominal CT if no improvement -holding IV fluids due to concurrent CHF -zofran prn N/V -trending CMP, lipase #Congestive heart failure/CAD -Most recent EF 40-45% (09/21/2017) -CXR and Abd CT note moderate bilateral pleural effusions, moderate ascites, possible LLL infiltrate -indeterminate Troponins 0.076, 0.073, 0.054, likely elevated 2/2 CHF as have been indeterminate in past admissions as well -BNP 3621 -Has been experiencing increased SOB, visible JVD, no peripheral edema -Lasix 40mg IV BID -Echo pending -Cardiology, Dr. Lucas consulted, recommends close f/u if patient needs surgery, will continue to follow -supplemental O2 as needed to keep SpO2>92%, on 3L currently #Afib with Ventricular Pacing -on tele -v-paced with some PVCs, few triplets and runs of 4-5, rate in the 80s-90s -rate in the 70s overnight -continue to monitor #HLD -continue home meds #GERD -continue home meds #HTN -vss -BP this morning 123/54 -on lasix for CHF -on tele, continue to monitor #Hypokalemia -Potassium of 2.5 this morning 05/05 -takes PO KCl at home -40meq KCl added -mag 1.4 -2g mag added -repeat labs this afternoon, monitor Diet: Heart Healthy DVT Proph: heparin GI Proph: protonix Code Status: DNR-DNI Dispo: inpatient, possible paracentesis pending GI and cards consults Addendum - Attending - Attending Attestation Date/Time: 05/05/19 4526 I personally evaluated the patient and discussed the management with Dr. Peña. I agree with the History, Examination, Assessment and Plan documented above with any addition or exceptions noted below. Pt with hypokalemia and hypomagnesemia. Replacing electrolytes and will recheck labs this afternoon. Pt was seen down in radiology getting his hida scan. Will f/u with these results and follow specialist recs
[2019-05-05] MEDS: Furosemide 40 MG/4 ML VIAL SLOW IVP SCH ×2 (06:00→17:54)
[2019-05-05] MEDS ORDERED: Potassium Chloride 40 MEQ in Sodium Chloride 0.9% 250 ML 250 ML IVPB SCH ×3 (06:00→17:00)
[2019-05-05] MEDS ORDERED: Piperacillin/Tazobactam 2.25 GM in Sodium Chloride 0.9% 100 ML IVPB SCH ×2 (06:00→12:00)
[2019-05-05] MEDS ORDERED: Furosemide 40 MG/4 ML VIAL SLOW IVP SCH (06:15)
[2019-05-05] MEDS: Arformoterol 15 MCG/2 ML NEB NEB SCH ×2 (07:24→18:41)
[2019-05-05] MEDS: Budesonide 0.5 MG/2 ML NEB NEB SCH ×2 (07:25→18:41)
[2019-05-05] MEDS: Albuterol Sulfate 2.5 mg/3 ml Neb NEB SCH ×2 (07:26→18:41)
[2019-05-05] MEDS ORDERED: Magnesium 2 GM/50 ML 2 GM in Premix Bag 1 BAG IVPB SCH (07:30)
[2019-05-05] MEDS ORDERED: Piperacillin/Tazobactam 3.375 GM in Sodium Chloride 0.9% 100 ML IVPB SCH (08:53)
[2019-05-05] MEDS: Azelastine 137 MCG/Spray 30 ML NS SCH (12:00)
[2019-05-05] MEDS: Aspirin 81 mg Enteric Coated Tablet PO SCH (12:06)
[2019-05-05] MEDS: Atorvastatin Calcium 20 MG TAB PO SCH (12:06)
[2019-05-05] MEDS: Multivitamin W/ Minerals 1 TAB PO SCH (12:07)
[2019-05-05] MEDS: Tamsulosin HCl 0.4 MG CAP PO SCH (12:07)
[2019-05-05] MEDS: Potassium Chloride 20 MEQ TAB PO SCH (12:07)
[2019-05-05] MEDS: Heparin 5,000 UNITS/ML VIAL SC SCH ×3 (12:07→21:43)
[2019-05-05] MEDS: Cyanocobalamin (Vitamin B-12) 1,000 MCG TAB PO SCH (12:07)
[2019-05-05] MEDS: Fish Oil 1,000 MG CAP PO SCH (12:07)
[2019-05-05] MEDS: Piperacillin/Tazobactam 3.375 GM in Sodium Chloride 0.9% 100 ML IVPB SCH ×2 (12:09→19:51)
[2019-05-05] MEDS ORDERED: Sodium Bicarbonate 2.5 MEQ/5 ML VIAL ONE (14:10)
[2019-05-05 14:53] LABS: Anion Gap 18 mmol/L (10-20); BUN (Urea Nitrogen) 27 mg/dL (8.4-25.7); Calc. Creatinine Clearance 48 mL/min (70-130); Calcium 8.8 mg/dL (7.8-10.44); Carbon Dioxide 22 mmol/L (23-31); Chloride 99 mmol/L (98-107); Estimated GFR-MDRD 62; Glucose 70 mg/dL (83-110); Magnesium 2.2 mg/dL (1.6-2.6); Potassium 3.3 mmol/L (3.5-5.1); Sodium 136 mmol/L (136-145)
--- NOTE | 2019-05-05 15:07 | NM ---
Hepatobiliary scan: 05/05/2019 HISTORY: Evaluate for cholecystitis, abdominal pain with shortness of breath TECHNIQUE: Anterior planar imaging obtained following the intravenous administration of 4.6 mCi of te chnetium 99m labeled mebrofenin. The patient was pretreated with 1.4 mcg of CCK analog. FINDINGS: There is radiotracer activity on post injection imaging with significant blood pool activit y noted initially during the examination. There is biliary and small bowel activity seen by approximately 25 minutes. The gallbladder is nonvisualized over one hour of imaging. Secondary to allergy, the patient could not be administered morphine and thus a 4 hour delayed image was performed. The 4 hour delayed image also demonstrates no activity in the expected location of the gallbladder. IMPRESSION: The gallbladder demonstrates no radiotracer activity over 4 hours of imaging, suspicious for cystic duct occlusion on the basis of acute cholecystitis.
--- NOTE | 2019-05-05 16:02 | ULT ---
Sonographic guided diagnostic paracentesis HISTORY: Ascites. FINDINGS: After explaining the procedure and answering all questions, sonographic survey shows small amount of free fluid in the right abdomen. Sterile technique, buffered local anesthesia, sonographic guidance, and a right anterior lateral approach were used to carefully advance a 19-gauge Yueh needle and catheter into the free fluid. Catheter was left to drain a total volume of 60 cc blood-tinged yellow liquid. Catheter was removed. Fluid was sent to pathology for evaluation. No evid ence of complication. Patient tolerated the procedure well and was returned in unchanged condition. IMPRESSION: Technically successful sonographic guided paracentesis. Laboratory pending.
[2019-05-05 16:08] LABS: Body Fluid Source Peritoneal Fluid
[2019-05-05 16:09] LABS: BF Color Red; Clarity Cloudy/Turbid (Clear); RBC Count-Automated 57000 /cumm; Tube # EDTA; WBC/NonHematic-Auto 21300 /cumm
[2019-05-05 17:13] LABS: BF Segmented Neutrophils 70 %; Cell Count Non Hematic 25 %; Lymphocytes 5 %
--- NOTE | 2019-05-05 17:43 | PRG ---
DATE OF SERVICE: 05/05/2019 SUBJECTIVE: Mr. Campbell is doing well. No current complaints. He continues to be profoundly weak. His project reservoir engineer states he has not been able to get up and walk without significant symptoms. No chest pain or pressure noted. He does not complain of shortness of breath. OBJECTIVE: VITAL SIGNS: Blood pressure 125/58, pulse 63, temperature 98.3. I's and O's -2000 and he has lost 8 pounds in the last day. LUNGS: Crackles at bases. HEART: Irregularly irregular. ABDOMEN: Soft, nontender, nondistended. EXTREMITIES: No edema. PERTINENT LABORATORY DATA: Hemoglobin 10.3 and creatinine 1.1, down from 1.5. Echo with doppler at bedside shows LVEF 50% to 55%, moderate to severe TR, moderate to severe MR. IMPRESSION: 1. Diastolic dysfunction. 2. Atrial fibrillation. 3. Preop clearance. 4. Cholecystitis. RECOMMENDATION: I spoke with Dr. Matthew Baez. Suggestions were offered. At this point, he has no current symptoms, no fever, and white count is mildly elevated. He would certainly be at increased risk for complications, given his past medical history. The better part of valor may be to treat conservatively. Continue with Lasix in addition to a beta ann therapy. Job ID: [id number]
[2019-05-05 18:19] LABS: Bacteria/HPF 2+ HPF (None Seen); Bilirubin Negative (Negative); Blood, Urine 3+ (Negative); Clarity Clear (Clear); Glucose, Urine (Dipstick) Normal (Negative); Leukocyte 75 Leu/uL (Negative); Nitrite Negative (Negative); Protein, Urine (Dipstick) 30 mg/dL (Neg-Trace); RBC/HPF Greater than 50 HPF (0-3); Squamous Epithelial None Seen HPF (0-3); Urobilinogen Normal mg/dL (Less than 2); WBC/HPF Greater than 50 HPF (0-3)
[2019-05-05 18:21] LABS: Urine Culture Reflex Yes Yes
[2019-05-05] MEDS: Ondansetron ODT 4 MG TAB PO PRN (19:54)
--- NOTE | 2019-05-05 20:55 | PRG ---
DATE OF SERVICE: 05/05/2019 SUBJECTIVE: Mr. Campbell is seen today for Dr. Baez. Dr. Baez saw him in consultation yesterday. The patient is admitted 05/03/2019. He has been seen by the hospitalist service, Dr. Baez, Dr. Aldridge, Dr. Robin Gregory, Dr. Van Lucas, and Dr. Whitmore. Since being admitted, he has had ultrasound-guided paracentesis [address] Gregory interpretation of this ascites aspirate suggest inflammatory type calls. The patient has long history of significant alcohol consumption. The patient states he drinks 4 ounces of wine a day. His son presents from [place], states he has heavy alcohol use in the past. On admission, the patient had an abdominal ultrasound noting large sludge ball in his gallbladder 8 cm. 4 mm bile duct ultrasounds suggesting of an irregular possible early cirrhosis. CAT scan revealed the same, but the patient's platelet count has been normal. He does not have splenomegaly and there is no evidence of portal hypertension. Dr. Aldridge is seeing the patient yesterday and Dr. Gregory today. The patient has a history of a colon resection. He states for colon cancer in [place]. He does not recall followup colonoscopies. The patient reports for the past several weeks, he has not been able to get out of bed. His mobility has been compromised. He complains of weakness in his legs. He reports difficulty in swallowing food, but he denies any abdominal pain. The patient's son present in the room states that he has been complaining of abdominal pain. When he presented to the emergency room, his chief complaint was abdominal pain and distention. On evaluation, he is noted to have elevated liver function tests. He had complained of abdominal pain for the past month, nausea, vomiting, and lack of appetite. The patient denies having any symptoms in the past or currently. His son contradicts his father and states that he has been complaining of this. The patient is a DNR. The patient had an echocardiogram today, known ejection fraction of 50% to 55% with [id number] tricuspid and mitral regurgitation. The patient's hepatitis serology is negative. Peritoneal fluid is cloudy to turbid from the ultrasound-guided paracentesis with a white count of 21,300. His PT/INR essentially normal. His liver function tests are centrally normal except for his bilirubin 6.5 on admission, today is 4.8. His bilirubin has been elevated in the past, but never as high as it is currently. As noted above, his ultrasound of the gallbladder and CAT scan of the gallbladder reveal an 8 cm sludge ball that does not appear to have any concern for malignancy or neoplasm. As noted above, his bilirubin is improved from 6.5 to 4.8 today. His lipase was slightly elevated to . CAT scan did not reveal any changes of pancreatitis. Dr. Lucas saw him initially, Dr. Whitmore today and I have talked to Dr. Whitmore today. The patient has some mildly increased risks from a cardiac standpoint for general anesthetic and laparoscopic cholecystectomy. The patient also has chronic kidney disease. BUN and creatinine of 29 and 1.5. The patient has a Watchman device and has history of atrial fibrillation. The patient is a DNR. The patient is . He has in addition to his son, Hung, who is present in his room today. He has other children, who are from [place]. Family is communicating with him today based on my discussion. OBJECTIVE: LUNGS: Clear to auscultation. CARDIAC: Irregular rate controlled rhythm. ABDOMEN: Soft, slightly distended. Tenderness in his right upper quadrant with mild guarding, but no peritoneal signs. Remainder of the abdomen in his right lower quadrant and left abdomen is slightly tender. When palpated, he says he has pain of 7 to 8. LABORATORY DATA: Sodium 136, potassium 3.3, GFR 62, BUN 27, creatinine 1.13. Bilirubin is trending as noted above. White count 16.5, hemoglobin 10.3, differential is unremarkable, and platelet count 145,000. ASSESSMENT AND PLAN: 1. Concern for cholecystitis. HIDA scan did not visualize the gallbladder after 4 hours. However, the liver did uptake the radiopharmaceutical and excreted into the GI tract. This suggests cholecystitis. The patient has significant cardiac risks for cholecystectomy. Cholecystitis could be a cause of his deconditioning and lack of mobility and consideration for cholecystectomy should be given. I have talked to Dr. Whitmore. His cardiac risk is moderate. I have discussed these issues with the patient and his son, who will discuss with the remainder of the family members. Laparoscopic cholecystectomy could be undertaken. Percutaneous drainage is probably not a reasonable consideration considering his abdominal ascites and the large sludge ball in his gallbladder. There are concerns for a gangrenous cholecystitis; although, his vital signs are normal. He is not tachypneic and tachycardic and does not have a left shift, but his abdominal exam is concerning. Laparoscopic cholecystectomy to be undertaken with the risks as explained to the patient. They would prefer to observe this with intravenous antibiotics and a trial of nonoperative therapy. Should he have increased pain or problems, consideration of laparoscopic cholecystectomy could be given and performed on Friday here next week. Currently, I would continue intravenous antibiotics. Have Physical Therapy seen him for mobility. 2. Deconditioning, mobility problems, DNR status. Family has resources and the patient wants to go home. 3. The patient lives with his , who is not in good health. Family is present, however, to help him at home and he wants to go home. 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 4. Alcohol abuse. 5. Cognitive impairment with memory deficit. 6. Atrial fibrillation. 7. Watchman procedure. 8. Coronary artery disease, status post coronary artery bypass grafting. 9. History of colon cancer and resection. He has a lower midline incision. This was performed in [place]. Job ID: [id number]
[2019-05-06] MEDS: Piperacillin/Tazobactam 3.375 GM in Sodium Chloride 0.9% 100 ML IVPB SCH ×5 (00:51→23:31)
--- NOTE | 2019-05-06 05:33 | PDOC.FM ---
- Subjective Subjective: Tele monitoring reported that patient has been mostly v-paced with a few PVCS, but he did have 12 beats of wide tachycardia in the 120s-150s. Patient said it woke him up at night and was painful. This morning patient reports that he is doing well. He confirmed that he understands the current plans of continuing antibiotic therapy with possible surgery if his pain progresses. He denies feeling any chest pain at rest, SOB at rest, or any abdominal pain at rest. He reports the pain in his RUQ is about 6-7/10 with palpation. - Objective MAR Reviewed: Yes Vital Signs & Weight: Vital Signs (12 hours) Temp Pulse Resp BP Pulse Ox 05/06/19 04:00 98.7 F 69 20 146/64 H 92 L 05/05/19 23:40 99.4 F 72 20 124/59 L 93 L 05/05/19 19:51 98.0 F 59 L 18 138/70 97 05/05/19 18:41 64 16 95 Weight Admit Weight 75.024 kg Weight 70.902 kg I&O: 05/04/19 05/05/19 05/06/19 06:59 06:59 06:59 Intake Total 320 540 600 Output Total 1800 2550 600 Balance -1479 0 Result Diagrams: 05/06/19 05:04 05/06/19 05:04 EKG Reviewed by me: Yes (v-paced, one 12-beat run of wide tach last night with rate of 120-150) Radiology Reviewed by me: Yes Radiology: HIDA scan 05/05: The gallbladder demonstrates no radiotracer activity over 4 hours of imaging, suspicious for cystic duct occlusion on the basis of acute cholecystitis. Phys Exam - Physical Examination Constitutional: NAD sclera icteric mild JVD Respiratory: no wheezing, no rales, no rhonchi, clear to auscultation bilateral Cardiovascular: irregular v-paced with PVCs Gastrointestinal: soft, positive bowel sounds less distention than yesterday, tender to RUQ no bilateral Lower extremity edema Neurological: moves all 4 limbs Lymphatic: no nodes Psychiatric: normal affect Deviation from normal: reduced skin turgor, ecchymosis over forearms, chest, and legs Dx/Plan (1) Ascites Code(s): R18.8 - OTHER ASCITES Status: Acute (2) Congestive heart failure (CHF) Code(s): I50.9 - HEART FAILURE, UNSPECIFIED Status: Acute Qualifiers: Heart failure type: systolic Heart failure chronicity: acute on chronic Qualified Code(s): I50.23 - Acute on chronic systolic (congestive) heart failure (3) Jaundice Code(s): R17 - UNSPECIFIED JAUNDICE Status: Acute (4) Leukocytosis Code(s): D72.829 - ELEVATED WHITE BLOOD CELL COUNT, UNSPECIFIED Status: Acute (5) Transaminitis Code(s): R74.0 - NONSPEC ELEV OF LEVELS OF TRANSAMNS & LACTIC ACID DEHYDRGNSE Status: Acute (6) Afib Code(s): I48.91 - UNSPECIFIED ATRIAL FIBRILLATION Status: Chronic (7) CAD (coronary artery disease) Code(s): I25.10 - ATHSCL HEART DISEASE OF [place] CORONARY ARTERY W/O ANG PCTRS Status: Chronic (8) Dyslipidemia Code(s): E78.5 - HYPERLIPIDEMIA, UNSPECIFIED Status: Chronic (9) HTN (hypertension) Code(s): I10 - ESSENTIAL (PRIMARY) HYPERTENSION Status: Chronic (10) Hyperbilirubinemia Code(s): E80.6 - OTHER DISORDERS OF BILIRUBIN METABOLISM Status: Acute (11) Hypokalemia Code(s): E87.6 - HYPOKALEMIA Status: Acute (12) Cholelithiasis Code(s): K80.20 - CALCULUS OF GALLBLADDER W/O CHOLECYSTITIS W/O OBSTRUCTION Status: Acute (13) UTI (urinary tract infection) Status: Acute - Plan Plan: #Hyperbilirubinemia and transaminitis r/o SBP #Cholelithiasis with cholecystitis -Elevated transaminases (AST/ALT 145/58-> 97/43>55/31>46/27), bilirubin (7.9-> 6.5>4.8>4.2), and alk phos (274->197>165>147) with leukocytosis (WBC 16->15.8-> 16.5>16.9) -RUQ US concerning for possible cirrhosis, moderate ascites, no common bile duct dilatation, possibility of large sludge ball surrounded by stones in the gallbladder vs less likely neoplasm 2/2 well defined margins and no evidence of gallbladder wall invasion -per report chest/abdomen CT at [facility] showed bilateral effusions and moderate ascites -started on Zosyn 7/23, creatinine 1.31 with GFR 52, increased to 3.375 05/05 -afebrile on admission and throughout stay to date -ammonia of 17 -surgery consulted, Dr. Baez not certain if ERCP necessary but patient likely would benefit from cholecystectomy. -Dr. Macedo consulted with patient and family 05/05, they would prefer to try non-surgical treatment with antibiotics first because of patient's moderate cardiac risk for surgery -continued recs appreciated -GI consulted, Dr. Aldridge, rec HIDA scan and diagnostic paracentesis -HIDA scan 05/05: results suspicious for cystic duct occlusion on the basis of acute cholecystitis -paracentesis 05/05: fluid cloudy/turbid, 54870 WBC, 70% neutrophils, 55286 RBC, suggests inflammatory fluid, fluid path pending -continued recs appreciated -vss, does not meet septic criteria at this time -procalcitonin improved 2.22>1.56 05/06, trending -lipase improved today, 319>294>160 -holding IV fluids due to concurrent CHF -zofran prn N/V -trending CMP #Congestive heart failure/CAD -Most recent EF 40-45% (09/21/2017) -CXR and Abd CT note moderate bilateral pleural effusions, moderate ascites, possible LLL infiltrate -indeterminate Troponins 0.076, 0.073, 0.054, likely elevated 2/2 CHF as have been indeterminate in past admissions as well -BNP 3621 -Has been experiencing increased SOB, visible JVD, no peripheral edema -Lasix 40mg IV BID -Echo 05/05: -EF 50-55% -mod-severe mitral regurg -mod-severe tricuspid regurg -mod elevated pulmonary artery pressure -Cardiology, Dr. Lucas consulted, recommends close f/u if patient needs surgery, will continue to follow -Cardiology, Dr. Whitmore consulted, recommended conservative therapy with continued Lasix and a beta-ann -begin 3.125mg carvedilol BID 05/06 with continued monitoring of BP and pulse -supplemental O2 as needed to keep SpO2>92%, on 3L currently #Afib with Ventricular Pacing -on tele -overnight v-paced with 12 beats of wide tachy rate of 120-150, some PVCs -continue to monitor #HLD -continue home meds #GERD -continue home meds #HTN -vss -BP this morning 146/64 -on lasix and now carvedilol -on tele, continue to monitor #Hypokalemia -Potassium of 2.5 7/am, 3.3 s/p 80meq KCl, 40meq KCl added -takes PO KCl at home -mag 1.4 7 am, 2g mag added, mag 2.2 -K 3.6 this am, continue to monitor #UTI -UA 05/05 showed protein, trace ketones, 3+ blood, LE -reflex culture pending -on Zosyn for medical managment of cholelithiasis with cholecystitis -will continue to monitor Diet: Heart Healthy DVT Proph: heparin GI Proph: protonix Code Status: DNR-DNI Dispo: inpatient, possible paracentesis pending GI and cards consults Addendum - Attending - Attending Attestation Date/Time: 05/06/19 1250 I personally evaluated the patient and discussed the management with Dr. Peña. I agree with the History, Examination, Assessment and Plan documented above with any addition or exceptions noted below. Pt will continue antibiotics. Culture from diagnostic paracentesis is pending. Doing trial of antibiotics for the cholecystitis. Added carvedilol.
[2019-05-06 05:46] LABS: INR-International Normal Ratio 1.3; Prothrombin Time 15.9 SEC (12.0-14.7)
[2019-05-06 06:00] LABS: ALT (SGPT) 27 U/L (8-55); AST (SGOT) 46 U/L (5-34); Albumin 2.8 g/dL (3.4-4.8); Alkaline Phosphatase 147 U/L (40-150); Anion Gap 16 mmol/L (10-20); BUN (Urea Nitrogen) 30 mg/dL (8.4-25.7); Bilirubin, Total 4.2 mg/dL (0.2-1.2); Calc. Creatinine Clearance 48 mL/min (70-130); Calcium 8.5 mg/dL (7.8-10.44); Carbon Dioxide 23 mmol/L (23-31); Chloride 100 mmol/L (98-107); Estimated GFR-MDRD 62; Globulin 2.4 g/dL (2.4-3.5); Glucose 104 mg/dL (83-110); Lipase 160 U/L (8-78); Potassium 3.6 mmol/L (3.5-5.1); Protein, Total 5.2 g/dL (5.8-8.1); Sodium 135 mmol/L (136-145)
[2019-05-06] MEDS: Furosemide 40 MG/4 ML VIAL SLOW IVP SCH ×2 (06:10→13:42)
[2019-05-06 06:44] LABS: Hemoglobin 10.4 g/dL (14.0-18.0); Mean Corpuscular HGB CONC 33.9 g/dL (32.0-36.0); Mean Corpuscular Hemoglobin 34.7 pg (27.0-31.0); Mean Platelet Volume 9.9 fL (7.4-10.4); Platelet Count 185 thou/uL (130-400); RBC Distribution Width 16.9 % (11.5-14.5); White Blood Cell (WBC) Count 16.9 thou/uL (4.8-10.8)
[2019-05-06] MEDS: Arformoterol 15 MCG/2 ML NEB NEB SCH ×2 (07:20→20:09)
[2019-05-06] MEDS: Albuterol Sulfate 2.5 mg/3 ml Neb NEB SCH ×2 (07:26→20:04)
[2019-05-06] MEDS: Budesonide 0.5 MG/2 ML NEB NEB SCH ×2 (07:26→20:06)
[2019-05-06 08:11] LABS: MDiff Complete? YES
[2019-05-06 08:12] LABS: Band 7 % (5-11); Eosinophils 1 % (0-10); Lymphocytes 9 % (21-51); Monocytes 8 % (0-10); Neutrophil 75 % (42-75); RBC Morphology Normal
--- NOTE | 2019-05-06 08:14 | PQF ---
LOLIS CHAUDHARI NIKKI, MD [id number] [facility]-296 [id number] CLINICAL DOCUMENTATION IMPROVEMENT CLARIFICATION FORM: ICD-10 Updated PLEASE DO AN ADDENDUM TO THE PROGRESS NOTE WITH ANY DOCUMENTATION UPDATES OR ADDITIONS AND CARRY THROUGH TO DC SUMMARY. THANK YOU. DATE: 05/06 ATTN: DR. JENNIFER GREEN/ DR. Demetria MILLS Please exercise your independent, professional judgment in responding to the clarification form. Clinical indicators are provided on the bottom of this form for your review. Please check appropriate box(s): ACUTE HEART FAILURE, UNSPECIFIED [X] Systolic / HFrEF [ ] Diastolic / HFpEF [ ] Combined Systolic / Diastolic [ ] Other diagnosis [ ] Unable to determine In addition, please specify: Present on Admission (POA): [X] Yes [ ] No [ ] Unable to determine For continuity of documentation, please document condition throughout progress notes and discharge summary. Thank You. CLINICAL INDICATORS - SIGNS / SYMPTOMS / LABS BNP: 3621 H&P (WESLEY) 05/03: ASSESSMENT/PLAN: ACUTE CHF, UNSPECIFIED; MOST RECENT EF 40- 45% (09/2017), CXR & ABD CT NOTE MODERATE B PLEURAL EFFUSIONS; EXPERIENCING INCREASED SOB, VISIBLE JVD PN 05/04 - PRESENT (PETER): ACUTE CHF, UNSPECIFIED ECHO 05/05: LVEF ESTIMATED AT 50-55% CARDIOLOGY PN 05/05 (RICHMOND): DIASTOLIC DYSFUNCTION RISKS: ACUTE CHF B PLEURAL EFFUSIONS HX HTN & CKD TREATMENT: CARDIOLOGY CONSULT (05/04) IV LASIX (05/03 - PRESENT) ECHO (05/05) THANK YOU! Jemima (This form is maintained as a part of the permanent medical record) 2014 [employer]. All Rights Reserved Jemima Cardona RN, BSN [email or web address] Office: [phone] [facility]
--- NOTE | 2019-05-06 08:21 | PQF ---
LOLIS CHAUDHARI NIKKI, MD [id number] [facility]-296 [id number] CLINICAL DOCUMENTATION IMPROVEMENT CLARIFICATION FORM: ICD-10 Updated PLEASE DO AN ADDENDUM TO THE PROGRESS NOTE WITH ANY DOCUMENTATION UPDATES OR ADDITIONS AND CARRY THROUGH TO DC SUMMARY. THANK YOU. DATE: 05/06 ATTN : DR. JENNIFER GREEN/ DR. Demetria MILLS Please exercise your independent, professional judgment in responding to the clarification form. Clinical indicators are provided on the bottom of this form for your review. Please check appropriate box(s): AMI TYPE: [ ] NSTEMI (TX type I) [ ] NSTEMI due to Demand Ischemia (AMI Type II) [X] Demand Ischemia without TX [ ] Other diagnosis [ ] Unable to determine In addition, please specify: Present on Admission (POA): [X] Yes [ ] No [ ] Unable to determine CLINICAL INDICATORS - SIGNS / SYMPTOMS / LABS TROPONIN I: 0.076, 0.073, 0.054 (05/03) H&P (SAMMIE) 05/03: A/P: TYPE II TX, LIKELY DEMAND, TREND TROPONIN PN (PETER) 05/04 - PRESENT: INDETERMINATE TROPONINS, LIKELY ELEVATED 2/2 CHF HAVE BEEN INDETERMINATE IN PAST ADMISSIONS WELL RISKS: ACUTE CHF (H&P, PN) ACUTE CHOLANGITIS (H&P, PN) TREATMENT: CARDIOLOGY CONSULT (05/04) ECHO (05/05) THANK YOU! Jemima (This form is maintained as a part of the permanent medical record) 2014 [employer] All Rights Reserved Jemima Cardona RN, BSN [email or web address] Office: [phone] [facility]
[2019-05-06] MEDS: Fish Oil 1,000 MG CAP PO SCH (09:49)
[2019-05-06] MEDS: Cyanocobalamin (Vitamin B-12) 1,000 MCG TAB PO SCH (09:50)
[2019-05-06] MEDS: Potassium Chloride 20 MEQ TAB PO SCH (09:50)
[2019-05-06] MEDS: Atorvastatin Calcium 20 MG TAB PO SCH (09:51)
[2019-05-06] MEDS: Aspirin 81 mg Enteric Coated Tablet PO SCH (09:51)
[2019-05-06] MEDS: Carvedilol 3.125 MG TAB PO SCH ×2 (09:51→16:55)
[2019-05-06] MEDS: Tamsulosin HCl 0.4 MG CAP PO SCH (09:51)
[2019-05-06] MEDS: Azelastine 137 MCG/Spray 30 ML NS SCH (09:51)
[2019-05-06] MEDS: Heparin 5,000 UNITS/ML VIAL SC SCH ×3 (09:52→19:53)
[2019-05-06] MEDS: Multivitamin W/ Minerals 1 TAB PO SCH (09:52)
--- NOTE | 2019-05-06 09:57 | PRG ---
DATE OF SERVICE: 05/05/2019 SUBJECTIVE: Mr. Campbell is seen in followup. He is actually feeling better. He has good appetite. He is eating. He is actually eating chicken fried steak and feels a lot better. He did have a paracentesis this morning. He also had a HIDA scan this morning. MEDICATIONS: 1. Albuterol. 2. Brovana. 3. Ecotrin. 4. Lipitor. 5. . 6. Pulmicort inhaler. 7. Vitamin D3. 8. Vitamin B12. 9. Fish oil. 10. Lasix 40 mg IV q.12 hours. 11. Heparin 5000 subcu t.i.d. 12. Zofran p.r.n. 13. Protonix. 14. Zosyn. 15. Potassium chloride. OBJECTIVE: VITAL SIGNS: Temperature is 98.3, pulse 83, and blood pressure 125/58. HEENT: He is icteric. LUNGS: Decreased breath sounds at bases. HEART: Regular rate and rhythm. ABDOMEN: Protuberant still, but there is no shifting, dullness, or fluid. There is no hepatomegaly. There is no right upper quadrant tenderness. There is no rebound or guarding. There is incision in the midline. There is no evidence of hernias. EXTREMITIES: Reveal no edema. IMAGING STUDIES: HIDA scan showed no filling of the gallbladder. Paracentesis was notable for removal of 260 mL of fluid. LABORATORY DATA: Labs showed fluid white cell count 21,000, fluid red blood cells 57,000. Today, BUN and creatinine are 27 and 1.13. Liver function tests note for bilirubin of 4.8, down from 6.5 yesterday, SGOT of 55 and 31 down from 96 and 43, alkaline phosphatase is 165, magnesium 1.4 to 2.2, albumin is 3, protein 5.2, lipase 22. INR is 1.4. Yesterday, white count 16,000, hemoglobin 10.3, platelet count 145. Blood cultures are pending. Urine culture is negative. ASSESSMENT: 1. Peritonitis. This is probably secondary peritonitis related to cholecystitis as the HIDA scan showed no filling of the gallbladder. He does not have a surgical abdomen and is actually feeling better. 2. Likely cholecystitis based on HIDA scan imaging studies. 3. history of coronary artery disease and atrial fibrillation, pacemaker and Watchman device. 4. Concern for possible cirrhosis with reported cirrhotic nodular liver on imaging on 05/03. This had not been noticed on previous imaging studies. He probably does have a component of underlying liver disease. He has no signs of hepatitis. He did drink some alcohol in the past, but it seems that his numbers that we look at his labs over the past several years, his LFTs will bump when he is admitted with heart failure. He probably does have a component of passive congestion and nutmeg liver. When the fluid levels come back on the ascites, we can determine a little bit better if this is cardiac ascites or related to portal hypertension from liver disease. Differentiation of the total albumin and protein in the ascitic fluid could help with that. I would favor cardiac disease being very prominent in this as he has a serum albumin of 3 and typically one does not see ascitic fluid with serum albumin of 3. On his imaging studies, his liver is not shocked and it is very mildly nodular. He has a very dilated inferior vena cava which would go along with passive congestion as well. RECOMMENDATIONS: At this point in time, I would hold off on cholecystectomy. He seems to be improving with antibiotics. I agree that he may be a poor component candidate for percutaneous drainage of the gallbladder because of the ascites, but I think that the fact that he is eating now, he is not going to have a cholecystectomy today and he is overall much better than he was yesterday. I think aggressive management of his heart failure to be reasonable. We can continue to monitor him. I would recheck his labs, LFTs, and INR again tomorrow. I have discussed with General Surgery. Job ID: [id number]
--- NOTE | 2019-05-06 17:53 | EKG ---
Test Reason : STAT Blood Pressure : / mmHG Vent. Rate : 079 BPM Atrial Rate : 077 BPM P-R Int : 000 ms QRS Dur : 184 ms QT Int : 480 ms P-R-T Axes : 000 -88 092 degrees QTc Int : 550 ms Ventricular-paced rhythm with occasional supraventricular complexes and with frequent , and consecuti ve Premature ventricular complexes Abnormal ECG Confirmed by DR. Demetria HAYES ([id number]) on 05/06/2019 5:53:22 PM Referred By: SAMMIE Confirmed By:DR. Demetria HAYES
--- NOTE | 2019-05-06 18:37 | PRG ---
DATE OF SERVICE: 05/06/2019 SUBJECTIVE: Mr. Campbell still has some pain, he states 04/21 yesterday. Today, his pain was much better than that. He has been on antibiotics. The nurses are trying to get a new IV started. The family has been equivocal what they want to do in terms of palliative care with antibiotics, no intervention versus attempts at cholecystectomy or possibly even cholecystostomy tube drainage. OBJECTIVE: VITAL SIGNS: Temperature 98, pulse 70, blood pressure is 120/76. HEENT: He is mildly icteric. LUNGS: Clear. HEART: Regular rate and rhythm. ABDOMEN: Mildly tender in the epigastrium. No rebound or guarding. EXTREMITIES: No clubbing, cyanosis, or edema. LABORATORY DATA: White count 16.9, hemoglobin 10.4, platelet count 185. 75% segs, 90% yesterday. INR is 1.3. Sodium 135, potassium 3.6, BUN and creatinine are 30 and 1.13. Bilirubin is 4.2, down from 4.8 yesterday and 7.9 on 04/13. AST and ALT are 46 and 27, alkaline phosphatase 147. These are all down from yesterday. Protein 5.2, albumin 2.8. Lipase 160. ASSESSMENT: 1. Acute cholecystitis with ascitic fluid that was tapped near the gallbladder, showing copious white blood cells. Unfortunately, no cultures were obtained from that fluid. Blood cultures were in progress from admission as well. 2. Heart failure. 3. Possible cirrhosis based on the appearance of liver and from alcohol use. Serologic evaluation has been otherwise negative. Imaging reveals a slightly nodular liver. He has no peripheral edema. RECOMMENDATIONS: I think at this point in time, the options are either treat him palliatively with antibiotics and let him eat and see how he does and ultimately maybe sometime next week let him go home with oral antibiotics for a while. The other option would be to try some type of drainage procedure such as a cholecystostomy tube. However, reviewing the films, there is ascites between the liver and the abdominal wall and chest wall, and therefore, probably that is not going to be feasible. That is ultimately to be a decision made by the interventional radiologist, however. The other option is cholecystectomy, which he does have some increased risk of morbidity and mortality secondary to his heart disease and his liver disease. However, I do not think his liver disease would decompensate with cholecystectomy. Dr. Macedo is going to talk with the family about the options. I think, there is going to be some thought about the cholecystostomy tube, we would have to involve the interventional radiologist directly talking to Radiology this evening. There was no interventional radiologist available to read to films. I did not think it would be possible to perform the cholecystostomy tube, but again that really have to be the decision made by the person who would be able to do it, so I think at this point in time, in terms of interventions, we are left with probably the most likely option which is cholecystectomy is a possibility, but seems less likely, so would be cholecystostomy tube. We will let Dr. Maecdo talk with the family about which one they would like to proceed with. If there is a thought about cholecystostomy tube, we can talk with the interventional radiologist specifically tomorrow. Job ID: [id number]
--- NOTE | 2019-05-06 20:18 | PRG ---
DATE OF SERVICE: 05/06/2019 SUBJECTIVE: Mr. Campbell is doing fairly well today. He still has some abdominal discomfort, but only on palpation. He states it hurts when he moves around. The patient has a grandson present, who is being the spokesperson for the family. I spoke to the patient's son, Hung, yesterday. The patient has a son from [place], has power of erisa attorney. Family is communicating. OBJECTIVE: VITAL SIGNS: The patient remains afebrile, 98.8 degrees; heart rate 70; blood pressure 128/60. Has recalled he had HIDA scan with nonvisualization of gallbladder after 4 hours. Hemoglobin 10.4 today, white count 16.9, differential unremarkable. Bilirubin is down to 4.2 from 6. LUNGS: Clear to auscultation. CARDIAC: Irregularly irregular, controlled rate. ABDOMEN: Soft, mildly distended, tenderness in his right upper quadrant with guarding. He grimaces when palpated. His abdomen is tender elsewhere, but to a lesser degree. IMAGING STUDIES: Echocardiogram performed, repeated recently, EF 55% to 60%, pacer wire was visualized, moderate to severe mitral regurgitation, moderate to severe tricuspid regurgitation, moderately elevated PAP. EF 50% to 55%. ASSESSMENT AND PLAN: Cholecystitis. I have discussed with family options, and decision, despite his DNR status, is to proceed with laparoscopic cholecystectomy to improve quality of life. They understand postoperatively he may be on the ventilator overnight. They understand he will be maintained on telemetry. They understand he is at risk for having myocardial infarction, heart failure, stroke, but hope to improve his confusion and leukocytosis and performance status after cholecystectomy. They are familiar with the risks and benefits outlined with increased cardiac risk and we will proceed tomorrow. Job ID: [id number]
--- NOTE | 2019-05-06 20:23 | PRG ---
DATE OF SERVICE: SUBJECTIVE: Mr. Campbell is done well. He has no current complaints. He would like to go home. No chest pain, pressure, or shortness of breath. His most recent echo suggested normal LVEF. OBJECTIVE: VITAL SIGNS: Blood pressure 128/60, pulse 70, temp 98. GENERAL: Patient is a pleasant 83-year-old male who is in no acute distress. The patient appears their stated age. NEUROLOGIC: The patient is alert and oriented x3 with no focal neurologic deficits. HEENT: Mildly jaundice. NECK: No JVD. Carotid upstroke brisk. No bruits bilaterally. LUNGS: Clear to auscultation with unlabored respirations. BACK: No scoliosis or kyphosis. CARDIAC: Irregularly irregular. ABDOMEN: Soft, nontender, nondistended. No peritoneal signs present. No hepatosplenomegaly. No abnormal striae. EXTREMITIES: 2+ femoral and 2+ dorsalis pedis pulses. No cyanosis, clubbing, or edema. SKIN: No gross abnormalities. PERTINENT LABORATORY DATA: Hemoglobin 10.4. Creatinine 1.1. IMPRESSION: 1. Likely diastolic heart failure, acute on chronic. 2. Atrial fibrillation. 3. Coronary artery disease. 4. Status post bypass surgery. 5. ? Necrotic cholecystitis. 6. Preop clearance. RECOMMENDATIONS: I discussed case with Dr. Robin Gregory today. The patient does appear to likely have a septic gallbladder. At this point, Mr. Campbell is not felt to be a prohibitive risk of surgery, but certainly not felt to be low risk. The benefits would outweigh the risks of proceeding. I did discuss this with Mr. Campbell, he understands. If cholecystectomy is needed, would therefore proceed given the findings on the paracentesis. No further recommendations. Job ID: [id number]
[2019-05-07 05:10] LABS: Band 7 % (5-11); Hemoglobin 10.1 g/dL (14.0-18.0); Lymphocytes 5 % (21-51); MDiff Complete? YES; Mean Corpuscular HGB CONC 33.1 g/dL (32.0-36.0); Mean Corpuscular Hemoglobin 33.9 pg (27.0-31.0); Mean Platelet Volume 9.7 fL (7.4-10.4); Monocytes 6 % (0-10); Neutrophil 82 % (42-75); Platelet Count 198 thou/uL (130-400); Platelet Morphology Comment Appears Adequate; RBC Distribution Width 16.4 % (11.5-14.5); Red Blood Cell (RBC) Count 2.97 mill/uL (4.70-6.10); White Blood Cell (WBC) Count 14.5 thou/uL (4.8-10.8)
[2019-05-07 05:13] LABS: ALT (SGPT) 24 U/L (8-55); AST (SGOT) 47 U/L (5-34); Albumin 2.9 g/dL (3.4-4.8); Alkaline Phosphatase 138 U/L (40-150); Anion Gap 15 mmol/L (10-20); BUN (Urea Nitrogen) 31 mg/dL (8.4-25.7); Bilirubin, Total 4.2 mg/dL (0.2-1.2); Calc. Creatinine Clearance 49 mL/min (70-130); Calcium 9.2 mg/dL (7.8-10.44); Carbon Dioxide 23 mmol/L (23-31); Chloride 99 mmol/L (98-107); Estimated GFR-MDRD 62; Globulin 2.5 g/dL (2.4-3.5); Glucose 103 mg/dL (83-110); Potassium 3.2 mmol/L (3.5-5.1); Protein, Total 5.4 g/dL (5.8-8.1); Sodium 134 mmol/L (136-145)
--- NOTE | 2019-05-07 05:39 | PDOC.FM ---
- Subjective Subjective: Patient resting comfortably in bed. Understands that he may have surgery today, and is agreeable. Denies cp, sob at rest, abdominal pain at rest. - Objective Vital Signs & Weight: Vital Signs (12 hours) Temp Pulse Resp BP Pulse Ox 05/07/19 03:56 97.3 F L 71 17 114/55 L 97 05/07/19 00:00 98.0 F 78 20 130/64 99 05/06/19 20:12 94 L 05/06/19 20:09 94 L 05/06/19 20:06 94 L 05/06/19 20:04 94 L 05/06/19 20:00 98.1 F 75 20 127/60 96 Weight Admit Weight 75.024 kg Weight 72.529 kg I&O: 05/05/19 05/06/19 05/07/19 06:59 06:59 06:59 Intake Total 540 600 560 Output Total 2550 600 980 Balance -2009 0 -420 Result Diagrams: 05/07/19 20:53 05/07/19 04:25 EKG Reviewed by me: Yes (v-paced, 7 beats vtach last night (70s-80s)) Phys Exam - Physical Examination Constitutional: NAD sclera ictera JVD Respiratory: clear to auscultation bilateral v-paced Gastrointestinal: soft mild tenderness to RUQ Musculoskeletal: no edema, pulses present Neurological: moves all 4 limbs Psychiatric: normal affect Dx/Plan (1) Ascites Code(s): R18.8 - OTHER ASCITES Status: Acute (2) Congestive heart failure (CHF) Code(s): I50.9 - HEART FAILURE, UNSPECIFIED Status: Acute Qualifiers: Heart failure type: systolic Heart failure chronicity: acute on chronic Qualified Code(s): I50.23 - Acute on chronic systolic (congestive) heart failure (3) Jaundice Code(s): R17 - UNSPECIFIED JAUNDICE Status: Acute (4) Leukocytosis Code(s): D72.829 - ELEVATED WHITE BLOOD CELL COUNT, UNSPECIFIED Status: Acute (5) Transaminitis Code(s): R74.0 - NONSPEC ELEV OF LEVELS OF TRANSAMNS & LACTIC ACID DEHYDRGNSE Status: Acute (6) Afib Code(s): I48.91 - UNSPECIFIED ATRIAL FIBRILLATION Status: Chronic (7) CAD (coronary artery disease) Code(s): I25.10 - ATHSCL HEART DISEASE OF [place] CORONARY ARTERY W/O ANG PCTRS Status: Chronic (8) Dyslipidemia Code(s): E78.5 - HYPERLIPIDEMIA, UNSPECIFIED Status: Chronic (9) HTN (hypertension) Code(s): I10 - ESSENTIAL (PRIMARY) HYPERTENSION Status: Chronic (10) Hyperbilirubinemia Code(s): E80.6 - OTHER DISORDERS OF BILIRUBIN METABOLISM Status: Acute (11) Hypokalemia Code(s): E87.6 - HYPOKALEMIA Status: Acute (12) Cholelithiasis Code(s): K80.20 - CALCULUS OF GALLBLADDER W/O CHOLECYSTITIS W/O OBSTRUCTION Status: Acute (13) UTI (urinary tract infection) Status: Acute - Plan Plan: #Hyperbilirubinemia and transaminitis r/o SBP #Cholelithiasis with cholecystitis -Elevated transaminases (AST/ALT 145/58-> 97/43>55/31>46/27), bilirubin (7.9-> 6.5>4.8>4.2), and alk phos (274->197>165>147) with leukocytosis (WBC 16->15.8-> 16.5>16.9) -RUQ US concerning for possible cirrhosis, moderate ascites, no common bile duct dilatation, possibility of large sludge ball surrounded by stones in the gallbladder vs less likely neoplasm 2/2 well defined margins and no evidence of gallbladder wall invasion -per report chest/abdomen CT at [place] [facility] showed bilateral effusions and moderate ascites -started on Zosyn 05/04, creatinine 1.31 with GFR 52, increased to 3.375 05/05 -afebrile on admission and throughout stay to date - -surgery consulted, Dr. Baez not certain if ERCP necessary but patient likely would benefit from cholecystectomy. -Dr. Macedo consulted with patient and family 05/05, they preferred to try non -surgical treatment with antibiotics first because of patient's moderate cardiac risk for surgery -consulted again 05/06 and discussed with family about the benefits/risks of surgery; patient decided to do the surgery and cholecystectomy planned for today -GI consulted, Dr. Aldridge, rec HIDA scan and diagnostic paracentesis -HIDA scan 05/05: results suspicious for cystic duct occlusion on the basis of acute cholecystitis -paracentesis 05/05: fluid cloudy/turbid, 26830 WBC, 70% neutrophils, 29511 RBC, suggests inflammatory fluid, no malignant cells -continued recs appreciated -vss, does not meet septic criteria at this time -procalcitonin improved 2.22>1.56 05/06, trending -lipase improved, 319>294>160 -holding IV fluids due to concurrent CHF -zofran prn N/V -trending CMP #Congestive heart failure/CAD -Most recent EF 40-45% (09/21/2017) -CXR and Abd CT note moderate bilateral pleural effusions, moderate ascites, possible LLL infiltrate -indeterminate Troponins 0.076, 0.073, 0.054, likely elevated 2/2 CHF as have been indeterminate in past admissions as well -BNP 3621 -Has been experiencing increased SOB, visible JVD, no peripheral edema -Lasix 40mg IV BID -Echo 05/05: -EF 50-55% -mod-severe mitral regurg -mod-severe tricuspid regurg -mod elevated pulmonary artery pressure -Cardiology, Dr. Lucas consulted, recommends close f/u if patient needs surgery, will continue to follow -Cardiology, Dr. Whitmore consulted, recommended continued Lasix and a beta- ann -begin 3.125mg carvedilol BID 05/06 with continued monitoring of BP and pulse -re-evaluated patient 05/06 and determined that he is not low risk for surgery , but not prohibitive if necessary -supplemental O2 as needed to keep SpO2>92%, on 3L currently #Afib with Ventricular Pacing -on tele -overnight v-paced, one episode of v-tach 70s-80s -continue to monitor #HLD -continue home meds #GERD -continue home meds #HTN -vss -BP this morning 146/64 -on lasix and now carvedilol -on tele, continue to monitor #Hypokalemia -Potassium of 3.2 05/07 -takes PO KCl at home -mag 1.4 05/05 am, 2g mag added, mag 2.2 -40meq, continue to monitor #UTI -UA 05/05 showed protein, trace ketones, 3+ blood, LE -reflex culture pending -on Zosyn for medical managment of cholelithiasis with cholecystitis -will continue to monitor -urine cx neg to date Diet: Heart Healthy DVT Proph: heparin GI Proph: protonix Code Status: DNR-DNI Dispo: inpatient, surgery today Addendum - Attending - Attending Attestation Date/Time: 05/07/19 1478 I personally evaluated the patient and discussed the management with Dr. Peña. I agree with the History, Examination, Assessment and Plan documented above with any addition or exceptions noted below. Pt is resting. Plan for lap delbert today. He remains on antibiotics. Appreciate specialist recs.
[2019-05-07] MEDS: Piperacillin/Tazobactam 3.375 GM in Sodium Chloride 0.9% 100 ML IVPB SCH ×3 (06:12→21:15)
[2019-05-07] MEDS: Furosemide 40 MG/4 ML VIAL SLOW IVP SCH ×2 (06:12→15:04)
[2019-05-07] MEDS ORDERED: Potassium Chloride 40 MEQ in Sodium Chloride 0.9% 250 ML 250 ML IVPB SCH (06:30)
[2019-05-07] MEDS: Arformoterol 15 MCG/2 ML NEB NEB SCH ×2 (07:02→20:32)
[2019-05-07] MEDS: Albuterol Sulfate 2.5 mg/3 ml Neb NEB SCH ×2 (07:03→20:29)
[2019-05-07] MEDS: Budesonide 0.5 MG/2 ML NEB NEB SCH ×2 (07:03→20:30)
[2019-05-07] MEDS: Cyanocobalamin (Vitamin B-12) 1,000 MCG TAB PO SCH (09:19)
[2019-05-07] MEDS: Aspirin 81 mg Enteric Coated Tablet PO SCH (09:19)
[2019-05-07] MEDS: Fish Oil 1,000 MG CAP PO SCH (09:19)
[2019-05-07] MEDS: Atorvastatin Calcium 20 MG TAB PO SCH (09:19)
[2019-05-07] MEDS: Potassium Chloride 20 MEQ TAB PO SCH (09:20)
[2019-05-07] MEDS: Multivitamin W/ Minerals 1 TAB PO SCH (09:20)
[2019-05-07] MEDS: Heparin 5,000 UNITS/ML VIAL SC SCH ×3 (09:20→21:16)
[2019-05-07] MEDS: Carvedilol 3.125 MG TAB PO SCH ×2 (09:22→21:15)
[2019-05-07] MEDS: Azelastine 137 MCG/Spray 30 ML NS SCH (09:23)
[2019-05-07] MEDS: Tamsulosin HCl 0.4 MG CAP PO SCH (09:23)
[2019-05-07] MEDS ORDERED: Acetaminophen 650 MG in Premix Bag 1 BAG IVPB SCH (11:15)
--- NOTE | 2019-05-07 13:45 | PRG ---
DATE OF SERVICE: 05/07/2019 SUBJECTIVE: Mr. Campbell is without complaints today. Dr. Macedo has talked to the family and they decided to proceed with laparoscopic cholecystectomy that is planned for today. OBJECTIVE: VITAL SIGNS: Temperature is 97.9, pulse 98, blood pressure 129/66, O2 saturation 97%. GENERAL: On exam, he is mildly icteric. He is in no distress. HEENT: Oropharynx is moist. NECK: Supple. LUNGS: Clear. ABDOMEN: Soft. There is no tenderness, rebound, or guarding at this time. EXTREMITIES: No clubbing, cyanosis, or edema. LABORATORY DATA: White count is 14.5 today, hemoglobin 10.1, platelet count 198. Bilirubin 4.2, AST and ALT are 47 and 24, alkaline phosphatase 138. Blood cultures from 05/03, no growth today. ASSESSMENT: 1. Acute cholecystitis. 2. Significant coronary artery disease, mild congestive heart failure. 3. Slight ascites with elevated white blood cell count in that, likely reactive to the cholecystitis. PLAN: The patient is going for laparoscopic cholecystectomy today. We will continue to follow along with you. Watch for any signs of hepatic decompensation. We will follow along with you. Job ID: [id number]
[2019-05-07] MEDS ORDERED: Rocuronium Bromide 10 MG/ML (10ML VIAL) ONE (14:06)
[2019-05-07] MEDS ORDERED: PROPOFOL 200 MG/20 ML VIAL ONE (14:06)
[2019-05-07] MEDS ORDERED: Ondansetron PF 4 MG/2 ML Vial ONE (14:06)
[2019-05-07] MEDS ORDERED: Lidocaine 1% PF 5 ML VIAL ONE (14:06)
[2019-05-07] MEDS ORDERED: PHENYLEPHRINE-NS 100 MCG/ML 10 ML SYRINGE ONE (14:06)
[2019-05-07] MEDS ORDERED: Iothalamate Meglumine 60% 50 ML VIAL FS ONE ×2 (14:11→15:07)
[2019-05-07] MEDS ORDERED: Bupivacaine HCl 0.5%/Epinephrine 1:200,000/PF 30 ml Vial ONE ×2 (14:11→15:07)
[2019-05-07] MEDS ORDERED: Fentanyl 100 MCG/2 ML VIAL ONE ×3 (14:56→18:39)
[2019-05-07] MEDS ORDERED: Phenylephrine HCL 10 MG/ML VIAL ONE (14:57)
[2019-05-07] MEDS ORDERED: SUGAMMADEX SODIUM 500 MG/5 ML VIAL ONE (16:27)
[2019-05-07] MEDS ORDERED: Piperacillin/Tazobactam 3.375 GM VIAL ONE (16:35)
--- NOTE | 2019-05-07 16:41 | PRG ---
DATE OF SERVICE: 05/07/2019 SUBJECTIVE: No significant changes noted overnight. OBJECTIVE: VITAL SIGNS: Blood pressure 127/58, pulse 80, temperature 97.8. LUNGS: Clear to auscultation. HEART: . ABDOMEN: Soft, nontender, nondistended. EXTREMITIES: No edema. PERTINENT LABS: Hemoglobin 10.1, creatinine 1.1. Echo Doppler shows LVEF 50-55%. IMPRESSION: 1. Acute cholecystitis. 2. Coronary artery disease. 3. Atrial fibrillation. 4. Status post bypass surgery. RECOMMENDATIONS: Given Mr. Campbell's comorbidities, Mr. Campbell is felt to be at increased risk of complications, but with elevated white blood cells noted on paracentesis, he will need laparoscopic cholecystectomy. I discussed this with the family. They understand the consequences and understand there is a short-term risk for long-term reward. At this point, the benefits outweigh the risk of proceeding. Plan is to proceed with laparoscopic cholecystectomy this afternoon. Job ID: [id number]
[2019-05-07] MEDS ORDERED: Promethazine HCl 25 MG/ML VIAL SLOW IVP PRN (17:20)
[2019-05-07] MEDS ORDERED: Ondansetron HCl/PF 4 MG/2 ML Vial IVP PRN (17:20)
[2019-05-07] MEDS ORDERED: Promethazine HCl 25 MG/ML VIAL IM PRN (17:20)
[2019-05-07] MEDS ORDERED: Sodium Chloride 0.9% 1,000 ML IV SCH ×2 (18:00→20:04)
[2019-05-07] MEDS ORDERED: Albumin 25% 25 GM/100 ML BOT IVPB SCH (20:45)
[2019-05-07] MEDS ORDERED: Sodium Chloride 0.9% 500 ML IV SCH (20:45)
[2019-05-07] MEDS ORDERED: Ondansetron ODT 8 MG TAB PO PRN (21:01)
[2019-05-07] MEDS ORDERED: Ondansetron ORAL SOLN. 4 MG/5 ML UDCUP PO PRN ×2 (21:01)
[2019-05-07] MEDS ORDERED: Ondansetron ODT 8 MG TAB SL PRN (21:01)
[2019-05-07] MEDS: DOPamine 400 MG/D5W 250 ML 250 ML IVPB SCH (21:10)
--- NOTE | 2019-05-07 21:13 | RAD ---
Chest one view HISTORY: Central line placement. Dyspnea. COMPARISON: 05/03/2019. FINDINGS: Cardiac silhouette is magnified and enlarged. Pulmonary vasculature upper limits of normal. Parenchymal opacity at the left base has increased since the prior study. Mediastinum is midline. Tip of a right subclavian central venous catheter overlies the right atrium. No evidence of pneumotho rax. IMPRESSION: Right subclavian central venous catheter is in good radiographic position. Increasing left lower lobe parenchymal opacity. Infiltrate versus atelectasis.
[2019-05-07 21:14] LABS: Hemoglobin 8.4 g/dL (14.0-18.0); Mean Corpuscular HGB CONC 32.2 g/dL (32.0-36.0); Mean Corpuscular Hemoglobin 32.1 pg (27.0-31.0); Mean Corpuscular Volume 99.9 fL (78.0-98.0); Mean Platelet Volume 9.3 fL (7.4-10.4); Platelet Count 161 thou/uL (130-400); RBC Distribution Width 15.6 % (11.5-14.5); Red Blood Cell (RBC) Count 2.61 mill/uL (4.70-6.10); White Blood Cell (WBC) Count 1.9 thou/uL (4.8-10.8)
[2019-05-07] MEDS: Ondansetron PF 4 MG/2 ML Vial IVP PRN (21:18)
[2019-05-07] MEDS ORDERED: Sodium Chloride 0.9% (PF) 10 ML VIAL FS PRN (21:26)
[2019-05-07 21:45] LABS: Band 2 % (5-11); Hypochromia SLIGHT = 6-15 cells (100X) (0-5/hpf); Lymphocytes 14 % (21-51); MDiff Complete? YES; Macrocytosis SLIGHT = 6-15 cells (100X) (0-5/hpf); Monocytes 6 % (0-10); Neutrophil 78 % (42-75); Platelet Morphology Comment Appears Adequate
[2019-05-07] MEDS: Ketorolac Tromethamine 30 MG/ML VIAL IVP PRN (21:54)
--- NOTE | 2019-05-07 22:54 | RAD ---
Intraoperative cholangiogram fluoroscopy HISTORY: Cholecystitis. FINDINGS: Intraoperative fluoroscopy was provided for cholecystectomy is performed by Dr. Macedo. Cho langiogram was performed. Images show contrast opacification of a mildly distended common duct. Subtle irregular lucency over the central duct on both images represent a filling defect. Correlation with real-time imaging is required. Fluoroscopy time 24 seconds
--- NOTE | 2019-05-07 23:48 | OP ---
DATE OF PROCEDURE: 05/07/2019 PREOPERATIVE DIAGNOSES: Cholecystitis, cholelithiasis, elevated liver function tests, preoperative bile duct caliber 4 mm by ultrasound without intrahepatic ductal dilatation, post coronary artery disease, possible early cirrhosis, exacerbation of his cognitive impairment. POSTOPERATIVE DIAGNOSES: Cholecystitis, cholelithiasis, elevated liver function tests, preoperative bile duct caliber 4 mm by ultrasound without intrahepatic ductal dilatation, post coronary artery disease, possible early cirrhosis, exacerbation of his cognitive impairment, choledocholithiasis, chronic cholecystitis, acute cholecystitis. PROCEDURES PERFORMED: Laparoscopic video cholecystectomy, intraoperative cholangiogram using fluoroscopy revealing dilated bile duct with filling defects without emptying into the duodenum. Large cystic duct with debris, multiple small stones and sludge and the gallbladder hydrops of the gallbladder, clear fluid, markedly thickened gallbladder wall, edematous wall, nodular, slightly liver, core liver biopsy right lobe. DESCRIPTION OF PROCEDURE: The patient was taken to the operating room where under general anesthesia, abdomen was clipped of hair, prepared with ChloraPrep, and draped in routine fashion. Because of prior midline incision from a colon resection, incision extending above the umbilicus, right lateral subcostal incision was made, pneumoperitoneum to 15 mmHg was established with Veress needle, replaced with a 5 port and laparoscope inserted. Right subxiphoid incision was made and 11 port placed. Right lateral subcostal incision was made and a 5 port placed. The midline was free of adhesions. Incision made through the old scar. Right periumbilical and a 5 mm port placed. The laparoscope moved to this port. The liver was slightly nodular. There was some bloody ascites evacuated (prior paracentesis). Gallbladder wall was markedly thickened and edematous. I had to decompress it to grasp it. It was decompressed with the cautery [place] and suction of clear fluid and then the fundus grasped at the puncture site and reflected cephalad. Inflammatory adhesions taken down. There was edema indicative of acute cholecystitis. Cystic artery and duct dissected free. Critical view obtained. Cystic artery doubly clipped proximally, singly distally and divided. Gallbladder had a cystic duct singly clipped on the gallbladder side. Opening was made in the cystic duct. Cholangiocatheter inserted. Cholangiograms obtained using fluoroscopy. This revealed failure of contrast to empty into the duodenum, left and right hepatic ducts. Common bile duct and common hepatic duct were visualized, and there appeared to be some distal filling defects. The patient had been given glucagon intravenously by Anesthesia. Cholangiogram was repeated and again it would not empty. Cholangiocatheter removed. Cystic duct stump milked of debris and doubly clipped proximally and divided along with the cystic artery, and gallbladder dissected free from liver bed obtaining good hemostasis prior to division of the final peritoneal attachments. Gallbladder and contents removed, submitted to Pathology. Good hemostasis established. Irrigant and pneumoperitoneum evacuated. Right subxiphoid fascia approximated with [id number] suture of 0 Vicryl UR needle. All skin incisions approximated with subdermal 4-0 Monocryl and [place] glue applied. Job ID: [id number]
[2019-05-07 23:53] LABS: Actual Bicarbonate (HCO3a) 24.1 mEq/L (22-28); CO2 Tension 37.2 mmHg (35.0-45.0); Carboxyhemoglobin (COHb) 1.8 gm% (0.0-3.0); Potassium - ABG Lab 2.97 mmol/L (3.70-5.30); pH, Arterial 7.43 (7.35-7.45)
[2019-05-07 23:57] LABS: O2 Tension (PaO2) 52.8 mmHg (> 60.0)
[2019-05-07 23:58] LABS: Puncture Site LBA
[2019-05-08] MEDS ORDERED: Calcium Chloride 1 GM/10 ML Abboject SYRINGE IVP SCH (00:15)
[2019-05-08] MEDS: Albumin 25% 25 GM/100 ML BOT IVPB SCH ×5 (00:16→23:03)
[2019-05-08] MEDS ORDERED: Hydrocortisone Sod Succ/PF 100 mg/2 ml Vial IVP SCH (00:30)
[2019-05-08] MEDS: Piperacillin/Tazobactam 3.375 GM in Sodium Chloride 0.9% 100 ML IVPB SCH ×5 (00:42→23:03)
[2019-05-08 02:28] LABS: INR-International Normal Ratio 1.4; Prothrombin Time 17.1 SEC (12.0-14.7)
[2019-05-08 02:33] LABS: Hemoglobin 9.9 g/dL (14.0-18.0); Mean Corpuscular HGB CONC 33.1 g/dL (32.0-36.0); Mean Corpuscular Hemoglobin 33.1 pg (27.0-31.0); Mean Platelet Volume 9.4 fL (7.4-10.4); Platelet Count 163 thou/uL (130-400); RBC Distribution Width 15.6 % (11.5-14.5); Red Blood Cell (RBC) Count 2.98 mill/uL (4.70-6.10); White Blood Cell (WBC) Count 2.6 thou/uL (4.8-10.8)
[2019-05-08 02:54] LABS: ALT (SGPT) 46 U/L (8-55); AST (SGOT) 163 U/L (5-34); Albumin 3.3 g/dL (3.4-4.8); Alkaline Phosphatase 326 U/L (40-150); Anion Gap 17 mmol/L (10-20); BUN (Urea Nitrogen) 34 mg/dL (8.4-25.7); Bilirubin, Total 7.9 mg/dL (0.2-1.2); Calc. Creatinine Clearance 46 mL/min (70-130); Calcium 9.5 mg/dL (7.8-10.44); Carbon Dioxide 22 mmol/L (23-31); Chloride 104 mmol/L (98-107); Estimated GFR-MDRD 54; Globulin 1.9 g/dL (2.4-3.5); Glucose 93 mg/dL (83-110); Protein, Total 5.2 g/dL (5.8-8.1); Sodium 140 mmol/L (136-145)
[2019-05-08 03:04] LABS: Band 4 % (5-11); Hemoglobin 9.9 g/dL (14.0-18.0); Hypochromia SLIGHT = 6-15 cells (100X) (0-5/hpf); Lymphocytes 2 % (21-51); MDiff Complete? YES; Macrocytosis SLIGHT = 6-15 cells (100X) (0-5/hpf); Mean Corpuscular HGB CONC 33.2 g/dL (32.0-36.0); Mean Corpuscular Hemoglobin 33.4 pg (27.0-31.0); Mean Platelet Volume 9.3 fL (7.4-10.4); Monocytes 20 % (0-10); Neutrophil 74 % (42-75); Platelet Count 166 thou/uL (130-400); Platelet Morphology Comment Appears Adequate; RBC Distribution Width 15.5 % (11.5-14.5); Red Blood Cell (RBC) Count 2.95 mill/uL (4.70-6.10); White Blood Cell (WBC) Count 2.5 thou/uL (4.8-10.8)
[2019-05-08] MEDS: Fentanyl 100 MCG/2 ML VIAL SLOW IVP PRN ×4 (03:06→20:57)
[2019-05-08] MEDS: Ketorolac Tromethamine 30 MG/ML VIAL IVP PRN ×3 (03:47→19:57)
[2019-05-08] MEDS ORDERED: Potassium Chloride 20 MEQ in Premix Bag 1 BAG IVPB SCH (04:30)
[2019-05-08] MEDS: Sodium Bicarbonate 100 MEQ in Dextrose 5% in Water 1,000 ML IV SCH ×2 (04:43→17:55)
[2019-05-08] MEDS ORDERED: Potassium Chloride 40 MEQ in Premix Bag 1 BAG IVPB SCH (04:45)
--- NOTE | 2019-05-08 05:02 | PDOC.FM ---
- Subjective Subjective: Patient had cholecystectomy sx yesterday, became hypotensive (70s/30s) and was moved to CCU. Dr. Mcneil was called and patient was given a bolus, a central line , albumin, and started on a dopamine drip. His cortisol was 20 and was started on hydrocortisone. He was started on D5W with sodium bicarb. ABG showed potassium 2.97 and calcium 1.1, started on KCl and Calcium Chloride. This morning Dr. Gregory plans to do an ERCP. Per report whenever patient awakens he is incoherent. Upon exam he was sleeping and talking incoherently in his sleep. - Objective MAR Reviewed: Yes Vital Signs & Weight: Vital Signs (12 hours) Temp Pulse Ox 05/08/19 03:00 97.3 F L 05/08/19 00:00 97.8 F 05/07/19 20:34 94 L 05/07/19 20:32 94 L 05/07/19 20:30 94 L 05/07/19 20:29 94 L 05/07/19 20:00 94 L Weight Admit Weight 75.024 kg Weight 75.07 kg Most Recent Monitor Data Heart Rate from ECG 75 NIBP 103/60 NIBP BP-Mean 74 Respiration from ECG 29 SpO2 100 I&O: 05/06/19 05/07/19 05/08/19 06:59 06:59 06:59 Intake Total 151 372 4645 Output Total 768 448 5336 Balance 0 -420 1114 Result Diagrams: 05/08/19 01:48 05/08/19 01:48 Radiology Reviewed by me: Yes (increasing LLL parenchymal opacity, atelectasis vs pneumonia) Phys Exam - Physical Examination respiratory: decreased breath sounds cardiac: v-pacing abdomen: bandages from sx yesterday,no purulence/corie erythema, distention no lower extremity edema Neurological: moves all 4 limbs Deviation from normal: AMS Deviation from normal: jaundiced Dx/Plan (1) Ascites Code(s): R18.8 - OTHER ASCITES Status: Acute (2) Congestive heart failure (CHF) Code(s): I50.9 - HEART FAILURE, UNSPECIFIED Status: Acute Qualifiers: Heart failure type: systolic Heart failure chronicity: acute on chronic Qualified Code(s): I50.23 - Acute on chronic systolic (congestive) heart failure (3) Jaundice Code(s): R17 - UNSPECIFIED JAUNDICE Status: Acute (4) Leukocytosis Code(s): D72.829 - ELEVATED WHITE BLOOD CELL COUNT, UNSPECIFIED Status: Acute (5) Transaminitis Code(s): R74.0 - NONSPEC ELEV OF LEVELS OF TRANSAMNS & LACTIC ACID DEHYDRGNSE Status: Acute (6) Afib Code(s): I48.91 - UNSPECIFIED ATRIAL FIBRILLATION Status: Chronic (7) CAD (coronary artery disease) Code(s): I25.10 - ATHSCL HEART DISEASE OF [place] CORONARY ARTERY W/O ANG PCTRS Status: Chronic (8) Dyslipidemia Code(s): E78.5 - HYPERLIPIDEMIA, UNSPECIFIED Status: Chronic (9) HTN (hypertension) Code(s): I10 - ESSENTIAL (PRIMARY) HYPERTENSION Status: Chronic (10) Hyperbilirubinemia Code(s): E80.6 - OTHER DISORDERS OF BILIRUBIN METABOLISM Status: Acute (11) Hypokalemia Code(s): E87.6 - HYPOKALEMIA Status: Acute (12) Cholelithiasis Code(s): K80.20 - CALCULUS OF GALLBLADDER W/O CHOLECYSTITIS W/O OBSTRUCTION Status: Acute (13) UTI (urinary tract infection) Status: Acute (14) Hypotension after procedure Code(s): I95.81 - POSTPROCEDURAL HYPOTENSION Status: Acute - Plan Plan: #Hyperbilirubinemia and transaminitis r/o SBP #Cholelithiasis with cholecystitis, probably cholangitis #hypotensive s/p procedure -Elevated transaminases (AST/ALT 145/58-> 97/43>55/31>46/27>163/46), bilirubin ( 7.9->6.5>4.8>4.2>7.9), and alk phos (274->197>165>147>163) with leukocytosis ( WBC 16->15.8->16.5>16.9>2.6) -RUQ US concerning for possible cirrhosis, moderate ascites, no common bile duct dilatation, possibility of large sludge ball surrounded by stones in the gallbladder vs less likely neoplasm 2/2 well defined margins and no evidence of gallbladder wall invasion -per report chest/abdomen CT at [place] [facility] showed bilateral effusions and moderate ascites -started on Zosyn 05/04, creatinine 1.31 with GFR 52, increased to 3.375 05/05 -afebrile on admission and throughout stay to date -ammonia of 17 -surgery consulted, Dr. Baez not certain if ERCP necessary but patient likely would benefit from cholecystectomy. -Dr. Macedo consulted with patient and family 05/05, they preferred to try non -surgical treatment with antibiotics first because of patient's moderate cardiac risk for surgery -consulted again 05/06 and discussed with family about the benefits/risks of surgery; patient decided to do the surgery and cholecystectomy performed -patient became hypotensive, given a bolus and started on dopamine drip -cortisol 20 so started on hydrocortisone -Started on D5W + sodium bicarb -ABG: pH 7.43, Co2 37.2, O2 52.8, K 2.97, Ca 1.1 -KCl and calcium chloride -continued recs appreciated -GI consulted, Dr. Aldridge, rec HIDA scan and diagnostic paracentesis -HIDA scan 05/05: results suspicious for cystic duct occlusion on the basis of acute cholecystitis -paracentesis 05/05: fluid cloudy/turbid, 64957 WBC, 70% neutrophils, 50726 RBC, suggests inflammatory fluid, no malignant cells -planned ERCP today -continued recs appreciated -procalcitonin improved 2.22>1.56>7.89 05/08 -lipase improved, 319>294>160 -holding IV fluids due to concurrent CHF -per nursing decreased urine output; consider small fluid bolus this afternoon if needed -afternoon CMP to monitor electrolytes s/p repletion -CCU for frequent monitoring of vitals #Congestive heart failure/CAD -Most recent EF 40-45% (09/21/2017) -CXR and Abd CT note moderate bilateral pleural effusions, moderate ascites, possible LLL infiltrate -indeterminate Troponins 0.076, 0.073, 0.054, likely elevated 2/2 CHF as have been indeterminate in past admissions as well -BNP 3621 -Echo 05/05: -EF 50-55% -mod-severe mitral regurg -mod-severe tricuspid regurg -mod elevated pulmonary artery pressure -Cardiology, Dr. Lucas consulted, recommends close f/u if patient needs surgery, will continue to follow -Cardiology, Dr. Whitmore consulted, recommended continued Lasix and a beta- ann -began 3.125mg carvedilol BID 05/06 with continued monitoring of BP and pulse -re-evaluated patient 05/06 and determined that he is not low risk for surgery , but not prohibitive if necessary -supplemental O2 as needed to keep SpO2>92%, on 3L NC currently #Afib with Ventricular Pacing -monitored in CCU #HLD -continue home meds #GERD -continue home meds #HTN -continuously monitored in CCU -BP this morning 100s/60s-70s -on carvedilol #Hypokalemia -Potassium of 3.0 05/08 -takes PO KCl at home -mag 1.4 05/05 am, 2g mag added, mag 2.2 -has potassium running this morning -recheck CMP this afternoon #UTI-resolved -UA 05/05 showed protein, trace ketones, 3+ blood, LE -reflex culture pending -on Zosyn for medical managment of cholelithiasis with cholecystitis -urine cx neg 05/07, final result Diet: Heart Healthy DVT Proph: heparin GI Proph: protonix Code Status: DNR-DNI Dispo: CCU for frequent monitoring of vitals, ERCP today Addendum - Attending - Attending Attestation Date/Time: 05/08/19 0718 I personally evaluated the patient and discussed the management with Dr. Peña. I agree with the History, Examination, Assessment and Plan documented above with any addition or exceptions noted below. Patient was hypotensive after lap delbert yesterday evening and was sent to the ICU. He is on a dopamine drip. Pt is awake but confused. He has been started on steroids. Electrolytes being replaced. Plan for ercp today.
[2019-05-08] MEDS: Hydrocortisone Sod Succ/PF 100 mg/2 ml Vial IVP SCH ×4 (05:12→23:02)
[2019-05-08] MEDS: Albuterol Sulfate 2.5 mg/3 ml Neb NEB SCH ×2 (07:06→18:55)
[2019-05-08] MEDS: Arformoterol 15 MCG/2 ML NEB NEB SCH ×2 (07:09→18:55)
[2019-05-08] MEDS: Budesonide 0.5 MG/2 ML NEB NEB SCH ×2 (07:09→18:54)
--- NOTE | 2019-05-08 10:11 | CON ---
DATE OF CONSULTATION: 05/08/2019 HISTORY OF PRESENT ILLNESS: Steve Campbell is an 83-year-old gentleman, who is apparently a DNR, has multiple medical problems. He has been in the hospital here since the , today is 05/08/2019. Pulmonary/Critical Care had been consulted while he is in the ICU. He underwent surgical intervention by Dr. Macedo, laparoscopic cholecystectomy was done. He is awake, responsive, and complains of pain. He denies any difficulty breathing. PAST MEDICAL HISTORY: He has multiple medical issues; 1. Ascites status post paracentesis and cholecystitis. 2. CHF, though his EF has been normal, but has evidence of severe mitral incompetence. 3. History of hypertension. 4. Atrial fibrillation. 5. Reflux. 6. Peripheral vascular disease. 7. COPD. 8. Asthma. PAST SURGICAL HISTORY: Previous surgeries including bypass, previous Watchman procedure, previous colectomy for colon cancer, previous cervical surgery, back surgery, shoulder surgery, and knee surgery. SOCIAL HISTORY: He still drink at one time. Former smoker. MEDICATIONS: His list of medicine from home; 1. Tramadol. 2. Flomax. 3. Potassium. 4. Lasix 40. 5. Nexium 20. 6. Plavix 75. 7. Budesonide 0.5. 8. Brovana [address] He has seen Dr[address] Mojica in office before, none recently. REVIEW OF SYSTEMS: Otherwise, unremarkable. ALLERGIES: NONE. PHYSICAL EXAMINATION: VITAL SIGNS: His blood pressure is 90/60, saturations are 93% on 3 L, pulse 75, respiratory rate 22, and he is afebrile. CHEST: Decreased breath sounds without any wheezing. CARDIAC: Atrial Fibrillation. ABDOMEN: Distended, softer. He is jaundiced. NEUROLOGIC: Awake, alert, and responsive. LABORATORY DATA: Platelet count is normal and H and H are 9 and 29. on room air. Creatinine 1.2. His total bilirubin is 7.9 and alkaline phosphatase 326. IMPRESSION: 1. Status post laparoscopic cholecystectomy. 2. Probably cirrhosis. 3. History of chronic obstructive pulmonary disease. 4. Asthma. 5. Ascites. 6. Diastolic dysfunction. 7. Marked weakness. 8. Hypertension. 9. Azotemia. PLAN: Basically supportive care. Minimize medication that would affect his renal status. Agree with hydrocortisone. Antibiotics adjusted. We will follow while in the ICU. Job ID: [id number]
[2019-05-08] MEDS: Atorvastatin Calcium 20 MG TAB PO SCH (10:12)
[2019-05-08] MEDS: Azelastine 137 MCG/Spray 30 ML NS SCH (10:12)
[2019-05-08] MEDS: Aspirin 81 mg Enteric Coated Tablet PO SCH (10:12)
[2019-05-08] MEDS: Multivitamin W/ Minerals 1 TAB PO SCH (10:13)
[2019-05-08] MEDS: Fish Oil 1,000 MG CAP PO SCH (10:13)
[2019-05-08] MEDS: Cyanocobalamin (Vitamin B-12) 1,000 MCG TAB PO SCH (10:13)
[2019-05-08] MEDS: Tamsulosin HCl 0.4 MG CAP PO SCH (10:14)
[2019-05-08] MEDS: Potassium Chloride 20 MEQ TAB PO SCH (10:14)
[2019-05-08] MEDS: Carvedilol 3.125 MG TAB PO SCH ×2 (10:14→19:20)
[2019-05-08] MEDS: Pantoprazole 40 MG VIAL IVP SCH (10:19)
[2019-05-08] MEDS: Acetaminophen 1,000 MG in Premix Bag 1 BAG IVPB PRN ×2 (10:37→17:58)
[2019-05-08] MEDS: DOPamine 400 MG/D5W 250 ML 250 ML IVPB SCH (10:42)
[2019-05-08] MEDS ORDERED: Iothalamate Meglumine 60% 50 ML VIAL FS ONE (12:18)
[2019-05-08] MEDS ORDERED: Succinylcholine Chloride 20 MG/ML 10 ml SYRINGE FS ONE (12:40)
[2019-05-08 13:27] LABS: Anion Gap 15 mmol/L (10-20); BUN (Urea Nitrogen) 38 mg/dL (8.4-25.7); Calc. Creatinine Clearance 38 mL/min (70-130); Calcium 9.2 mg/dL (7.8-10.44); Carbon Dioxide 24 mmol/L (23-31); Chloride 104 mmol/L (98-107); Estimated GFR-MDRD 46; Glucose 123 mg/dL (83-110); Potassium 3.6 mmol/L (3.5-5.1); Sodium 139 mmol/L (136-145)
[2019-05-08] MEDS ORDERED: Norepinephrine 4 MG/4 ML VIAL ONE (15:44)
[2019-05-08] MEDS ORDERED: Indomethacin 50 MG SUPP ONE (16:08)
--- NOTE | 2019-05-08 16:32 | PRG ---
DATE OF SERVICE: 05/08/2019 SUBJECTIVE: Mr. Campbell is an 83-year-old man, postop day one, status post laparoscopic cholecystectomy with intraoperative cholangiogram, which revealed some small intraductal defects. The patient is awake and alert today. He reports incisional pain, which is controlled with analgesics. He is currently n.p.o. for endoscopic procedure today. The patient required fluid and vasopressor resuscitation yesterday. He was on dopamine at 10 mcg/kg per minute yesterday. Overnight, I did give him some fluid boluses. Workup revealed acute adrenal insufficiency, for which the patient is currently on hydrocortisone. We have been able to wean the dopamine now to 4 mcg/kg per minute. Urinary output, however, has remained marginal. OBJECTIVE: VITAL SIGNS: Today, include blood pressure 113/62, pulse 71, respiratory rate is 21, temperature 97.6 degrees Fahrenheit, oxygen saturation is 93% on 3 L by nasal cannula oxygen. HEENT: Pupils are equal, round, reactive to light and accommodation. He has bilateral scleral icterus present. HEART: Reveals regular rate and rhythm. No murmurs or gallops auscultated. LUNGS: Reveal bibasilar rhonchi. Breathing regular and nonlabored. ABDOMEN: Soft, moderately distended with incisional tenderness to palpation. NEUROLOGIC: Reveals no focal deficits present. LABORATORY FINDINGS: Include a CBC today with 2600 white blood cells, hemoglobin and hematocrit are 9.9 and 29.8 respectively. Platelet count is 163,000. Metabolic profile; sodium 139, potassium is 3.6, chloride is 104, bicarb is 24, BUN is 38, creatinine 1.46, glucose 123. Total bilirubin is 7.9, up from 4.2 yesterday. AST and ALT 163 and 46 respectively as opposed to 47 and 24 respectively yesterday. Alkaline phosphatase today is 326, it was 138 yesterday. IMPRESSION: 1. Postop day #1, status post laparoscopic cholecystectomy with intraoperative cholangiogram. 2. Acute kidney injury with oliguria. 3. Acute transaminitis. PLAN: 1. Continue with fluid resuscitation. Monitor urinary output as endpoint. 2. The patient is currently on bicarbonate infusion, which we will continue at this time. 3. The patient is being evaluated by Gastroenterology in consultation for possible ERCP today. Above findings and plan discussed with the patient and family at bedside. Job ID: [id number] [facility]
[2019-05-08] MEDS ORDERED: traMADol HCl 50 MG TAB PO PRN (16:55)
[2019-05-08] MEDS ORDERED: Ibuprofen 100 MG/5 ML UDCUP PO PRN (16:55)
[2019-05-08] MEDS ORDERED: Acetaminophen 500 MG TAB PO PRN (16:55)
[2019-05-08] MEDS: Ondansetron PF 4 MG/2 ML Vial IVP PRN (17:54)
--- NOTE | 2019-05-08 18:42 | RAD ---
ERCP intraoperative fluoroscopy HISTORY: Cholecystitis. FINDINGS: Intraoperative fluoroscopy was provided for ERCP procedure. Spot fluoroscopic images show e ndoscopic catheter over the second portion the duodenum. Contrast opacification of a distended common duct. Limited visualization of the intrahepatic biliary system. No filling defects are reliabl y demonstrated.
[2019-05-08] MEDS ORDERED: Norepinephrine 8 MG in Dextrose 5% in Water 242 ML IVPB PRN (18:43)
--- NOTE | 2019-05-09 00:32 | PRG ---
DATE OF SERVICE: 05/08/2019 SUBJECTIVE: The patient remains in the critical care unit. He is postop day 1, status post laparoscopic cholecystectomy with intraoperative cholangiogram. Overnight and today, the patient has had continued issues with his urinary output. The Day Team and his Primary Team to include Pulmonary Critical Care managing this and monitoring it. The nurses report no issues. OBJECTIVE: VITAL SIGNS: Currently stable. He is being weaned from his vasopressors. GENERAL: The patient is resting comfortably in bed. He is awake, but confused, primarily appears to be disoriented to his location. At times, he can be reoriented, but primarily maintains being disorient. ABDOMEN: Surgical sites are clean, dry, and intact. ASSESSMENT AND PLAN: Continue supportive care per the Primary Team. Job ID: [id number]
[2019-05-09 04:26] LABS: ALT (SGPT) 32 U/L (8-55); AST (SGOT) 76 U/L (5-34); Albumin 3.4 g/dL (3.4-4.8); Alkaline Phosphatase 171 U/L (40-150); Anion Gap 16 mmol/L (10-20); BUN (Urea Nitrogen) 39 mg/dL (8.4-25.7); Bilirubin, Total 8.6 mg/dL (0.2-1.2); Calc. Creatinine Clearance 29 mL/min (70-130); Calcium 8.7 mg/dL (7.8-10.44); Carbon Dioxide 25 mmol/L (23-31); Chloride 101 mmol/L (98-107); Estimated GFR-MDRD 33; Globulin 1.5 g/dL (2.4-3.5); Glucose 166 mg/dL (83-110); Potassium 3.3 mmol/L (3.5-5.1); Protein, Total 4.9 g/dL (5.8-8.1); Sodium 139 mmol/L (136-145)
[2019-05-09 04:41] LABS: Band 20 % (5-11); Hemoglobin 8.3 g/dL (14.0-18.0); Lymphocytes 9 % (21-51); MDiff Complete? YES; Mean Corpuscular HGB CONC 33.5 g/dL (32.0-36.0); Mean Corpuscular Hemoglobin 33.1 pg (27.0-31.0); Mean Corpuscular Volume 98.8 fL (78.0-98.0); Mean Platelet Volume 9.5 fL (7.4-10.4); Metamyelocyte 2 % (0-0); Monocytes 12 % (0-10); Neutrophil 57 % (42-75); Platelet Count 129 thou/uL (130-400); Platelet Morphology Comment Appears Adequate; RBC Distribution Width 15.6 % (11.5-14.5); White Blood Cell (WBC) Count 2.6 thou/uL (4.8-10.8)
[2019-05-09] MEDS: Hydrocortisone Sod Succ/PF 100 mg/2 ml Vial IVP SCH ×3 (05:09→17:31)
[2019-05-09] MEDS: Piperacillin/Tazobactam 3.375 GM in Sodium Chloride 0.9% 100 ML IVPB SCH ×2 (05:10→12:36)
--- NOTE | 2019-05-09 05:24 | PDOC.FM ---
- Subjective Subjective: Patient has AMS this morning. Minimal urine output. A&Ox1. Patient denies cp, SOB, abdominal pain at rest. Reports mild abdominal pain with palpation in RUQ. D5 with sodium bicarb d/c after last L. Per report during ERCP, one large stone was retrieved. - Objective MAR Reviewed: Yes Vital Signs & Weight: Vital Signs (12 hours) Temp Pulse Resp Pulse Ox 05/09/19 04:00 97.7 F 05/09/19 00:00 97.1 F L 05/08/19 19:15 96 05/08/19 19:00 97.5 F L 05/08/19 18:55 80 23 H 98 05/08/19 18:54 70 12 98 Weight Admit Weight 75.024 kg Weight 72.1 kg Most Recent Monitor Data Heart Rate from ECG 74 NIBP 114/64 NIBP BP-Mean 80 Respiration from ECG 19 SpO2 97 I&O: 05/07/19 05/08/19 05/09/19 06:59 06:59 06:59 Intake Total 560 4375.4 2164 Output Total 980 2800 155 Balance -420 1575.4 2008 Result Diagrams: 05/09/19 09:51 05/09/19 03:52 EKG Reviewed by me: Yes (v-paced) Phys Exam - Physical Examination sclera icteric Respiratory: no wheezing, no rales, no rhonchi v-paced Gastrointestinal: positive bowel sounds distended, tender to RUQ Musculoskeletal: pulses present no edema in bilateral lower extremities Neurological: moves all 4 limbs Deviation from normal: A&Ox1, AMS Deviation from normal: jaundice, poor turgor Dx/Plan (1) Ascites Code(s): R18.8 - OTHER ASCITES Status: Acute (2) Congestive heart failure (CHF) Code(s): I50.9 - HEART FAILURE, UNSPECIFIED Status: Acute Qualifiers: Heart failure type: systolic Heart failure chronicity: acute on chronic Qualified Code(s): I50.23 - Acute on chronic systolic (congestive) heart failure (3) Jaundice Code(s): R17 - UNSPECIFIED JAUNDICE Status: Acute (4) Leukocytosis Code(s): D72.829 - ELEVATED WHITE BLOOD CELL COUNT, UNSPECIFIED Status: Acute (5) Transaminitis Code(s): R74.0 - NONSPEC ELEV OF LEVELS OF TRANSAMNS & LACTIC ACID DEHYDRGNSE Status: Acute (6) Afib Code(s): I48.91 - UNSPECIFIED ATRIAL FIBRILLATION Status: Chronic (7) CAD (coronary artery disease) Code(s): I25.10 - ATHSCL HEART DISEASE OF [place] CORONARY ARTERY W/O ANG PCTRS Status: Chronic (8) Dyslipidemia Code(s): E78.5 - HYPERLIPIDEMIA, UNSPECIFIED Status: Chronic (9) HTN (hypertension) Code(s): I10 - ESSENTIAL (PRIMARY) HYPERTENSION Status: Chronic (10) Hyperbilirubinemia Code(s): E80.6 - OTHER DISORDERS OF BILIRUBIN METABOLISM Status: Acute (11) Hypokalemia Code(s): E87.6 - HYPOKALEMIA Status: Acute (12) Cholelithiasis Code(s): K80.20 - CALCULUS OF GALLBLADDER W/O CHOLECYSTITIS W/O OBSTRUCTION Status: Acute (13) UTI (urinary tract infection) Status: Acute (14) Hypotension after procedure Code(s): I95.81 - POSTPROCEDURAL HYPOTENSION Status: Acute (15) Oliguria Code(s): R34 - ANURIA AND OLIGURIA Status: Acute - Plan Plan: #Hyperbilirubinemia and transaminitis r/o SBP #Cholelithiasis with cholecystitis, probably cholangitis #hypotensive s/p procedure -Elevated transaminases (AST/ALT 145/58-> 97/43>55/31>46/27>163/46>76/32), bilirubin (7.9->6.5>4.8>4.2>7.9>8.6), and alk phos (274->197>165>147>163>171) with leukocytosis (WBC 16->15.8->16.5>16.9>2.6>2.6) -RUQ US concerning for possible cirrhosis, moderate ascites, no common bile duct dilatation, possibility of large sludge ball surrounded by stones in the gallbladder vs less likely neoplasm 2/2 well defined margins and no evidence of gallbladder wall invasion -per report chest/abdomen CT at [facility] showed bilateral effusions and moderate ascites -started on Zosyn 05/04, creatinine 1.31 with GFR 52, increased to 3.375 05/05 -afebrile on admission and throughout stay to date -ammonia of 17 -surgery consulted, Dr. Baez not certain if ERCP necessary but patient likely would benefit from cholecystectomy. -Dr. Macedo consulted with patient and family 05/05, they preferred to try non -surgical treatment with antibiotics first because of patient's moderate cardiac risk for surgery -consulted again 05/06 and discussed with family about the benefits/risks of surgery; patient decided to do the surgery and cholecystectomy performed -patient became hypotensive, given a bolus and started on dopamine drip -cortisol 20 so started on hydrocortisone -Started on D5W + sodium bicarb, d/c'd after last L -ABG: pH 7.43, Co2 37.2, O2 52.8, K 2.97, Ca 1.1 -KCl and calcium chloride -continued recs appreciated -GI consulted, Dr. Aldridge, rec HIDA scan and diagnostic paracentesis -HIDA scan 05/05: results suspicious for cystic duct occlusion on the basis of acute cholecystitis -paracentesis 05/05: fluid cloudy/turbid, 41413 WBC, 70% neutrophils, 74580 RBC, suggests inflammatory fluid, no malignant cells -ERCP 05/08: distended common duct, no filling defects, retrieved one stone -continued recs appreciated -procalcitonin 2.22>1.56>7.89>13.62 05/09 -blood & urine cultures -lipase 319>294>160 -urine output oliguric, 500ml LR bolus + LR below maintenance -transfer to floor today #Congestive heart failure/CAD -Most recent EF 40-45% (09/21/2017) -CXR and Abd CT note moderate bilateral pleural effusions, moderate ascites, possible LLL infiltrate -indeterminate Troponins 0.076, 0.073, 0.054, likely elevated 2/2 CHF as have been indeterminate in past admissions as well -BNP 3621 -Echo 05/05: -EF 50-55% -mod-severe mitral regurg -mod-severe tricuspid regurg -mod elevated pulmonary artery pressure -Cardiology, Dr. Lucas consulted, recommends close f/u if patient needs surgery, will continue to follow -Cardiology, Dr. Whitmore consulted, recommended continued Lasix and a beta- ann -began 3.125mg carvedilol BID 05/06 with continued monitoring of BP and pulse -re-evaluated patient 05/06 and determined that he is not low risk for surgery , but not prohibitive if necessary -supplemental O2 as needed to keep SpO2>92%, on 3L NC currently -MAP has been mostly in the 80s, levophed onboard to keep map >70 but no use since midnight -continue to monitor after adding fluids 05/09 #Afib with Ventricular Pacing -will be monitored on tele #HLD -continue home meds #GERD -continue home meds #HTN -continuously monitored in CCU -BP this morning 90s-120s/60s/70s -on carvedilol #Hypokalemia -Potassium of 3.3 05/08 -takes PO KCl at home -mag 1.4 05/05 am, 2g mag added, mag 2.2 -40meq KCl -continue to monitor #UTI-resolved -UA 05/05 showed protein, trace ketones, 3+ blood, LE -reflex culture pending -on Zosyn for medical managment of cholelithiasis with cholecystitis -urine cx neg 05/07, final result #Oliguria -3ml urine output over one hour, decreased markedly -500ml LR bolus, + LR @ 90ml/hr -nephro consult today Diet: Heart Healthy DVT Proph: SCDs, elevated has bled score GI Proph: protonix Code Status: DNR-DNI Dispo: transfer to tele today, consult nephrology to optimize kidney function Addendum - Attending - Attending Attestation Date/Time: 05/09/19 [id number] I personally evaluated the patient and discussed the management with Dr. Peña. I agree with the History, Examination, Assessment and Plan documented above with any addition or exceptions noted below. The patient remains jaundiced as he has all week. Pt is off all pressors. Vitals are stable. He is still confused however this is not unexpected with his dementia at baseline following two procedures. Will bolus fluids as he has had minimal urine output. Consulting nephrology regarding worsening refugio. Fluids must be balanced with his CHF.
[2019-05-09] MEDS ORDERED: Potassium Chloride 40 MEQ in Premix Bag 1 BAG IVPB SCH (05:30)
[2019-05-09] MEDS: Albuterol Sulfate 2.5 mg/3 ml Neb NEB SCH ×2 (06:34→18:32)
[2019-05-09] MEDS: Budesonide 0.5 MG/2 ML NEB NEB SCH ×2 (06:37→18:31)
[2019-05-09] MEDS: Arformoterol 15 MCG/2 ML NEB NEB SCH ×2 (06:37→18:31)
[2019-05-09] MEDS ORDERED: Lactated Ringer's 500 ML IV SCH (07:45)
[2019-05-09] MEDS: Ketorolac Tromethamine 30 MG/ML VIAL IVP PRN (07:48)
[2019-05-09] MEDS: Carvedilol 3.125 MG TAB PO SCH ×2 (07:49→17:05)
[2019-05-09] MEDS: Pantoprazole 40 MG VIAL IVP SCH (07:50)
[2019-05-09] MEDS: Lactated Ringer's 1,000 ML IV SCH ×2 (08:34→16:53)
--- NOTE | 2019-05-09 08:54 | PRG ---
DATE OF SERVICE: 05/09/2019 SUBJECTIVE: This morning, he is awake, alert, and responsive. He is still quite jaundiced. Bilirubin was 8.6. Creatinine 1.3. White count is 2.6, H and H 24, and platelet count 129. Sitting on the side of the bed. He is status post cholecystectomy and ERCP. Weak. But, denies any shortness of breath. OBJECTIVE: VITAL SIGNS: His pulse is 70, blood pressure is 90/40, saturations 92%, and respiratory rate 17. CHEST: Decreased breath sounds without any wheezing. CARDIAC: Normal S1 and S2. No gallops. ABDOMEN: No masses. IMPRESSION: 1. Status post cholecystectomy. 2. Renal failure. 3. Hypertension. 4. Renal failure. PLAN: Continue neb treatments, supportive care, and PT. Stress dose of steroids. Pulmonary/Critical Care will follow in the ICU. Job ID: [id number]
[2019-05-09] MEDS: Azelastine 137 MCG/Spray 30 ML NS SCH (09:22)
[2019-05-09] MEDS: Aspirin 81 mg Enteric Coated Tablet PO SCH (09:22)
[2019-05-09] MEDS: Cyanocobalamin (Vitamin B-12) 1,000 MCG TAB PO SCH (09:22)
[2019-05-09] MEDS: Atorvastatin Calcium 20 MG TAB PO SCH (09:22)
[2019-05-09] MEDS: Fish Oil 1,000 MG CAP PO SCH (09:23)
[2019-05-09] MEDS: Multivitamin W/ Minerals 1 TAB PO SCH (09:23)
[2019-05-09] MEDS: Potassium Chloride 20 MEQ TAB PO SCH (09:24)
[2019-05-09] MEDS: Tamsulosin HCl 0.4 MG CAP PO SCH (09:24)
[2019-05-09 10:09] LABS: Reticulocyte Count 2.3 % (0.5-1.5)
[2019-05-09 10:12] LABS: Hemoglobin 8.6 g/dL (14.0-18.0); Mean Corpuscular HGB CONC 33.4 g/dL (32.0-36.0); Mean Corpuscular Hemoglobin 32.9 pg (27.0-31.0); Mean Corpuscular Volume 98.5 fL (78.0-98.0); Mean Platelet Volume 10.2 fL (7.4-10.4); Platelet Count 151 thou/uL (130-400); RBC Distribution Width 16.2 % (11.5-14.5); Red Blood Cell (RBC) Count 2.62 mill/uL (4.70-6.10); White Blood Cell (WBC) Count 3.2 thou/uL (4.8-10.8)
[2019-05-09] MEDS ORDERED: Acetaminophen 650 MG/20.3 ML UDCUP PO PRN (10:24)
[2019-05-09 10:29] LABS: INR-International Normal Ratio 1.8; Prothrombin Time 20.9 SEC (12.0-14.7)
[2019-05-09 11:00] LABS: Anisocytosis SLIGHT = 6-15 cells (100X) (0-5/hpf); Band 14 % (5-11); Burr Cells MODERATE= 6-15 cells (100X) (0-1/hpf); Hypochromia SLIGHT = 6-15 cells (100X) (0-5/hpf); Large Platelets SLIGHT; Lymphocytes 7 % (21-51); MDiff Complete? YES; Monocytes 24 % (0-10); Neutrophil 53 % (42-75); Nucleated RBC 2 % (0); Ovalocytes SLIGHT = 2-5 cells (100X) (0-1/hpf); Platelet Morphology Comment Appears Adequate; Reactive Lymphocytes 2 % (0-10); Schistocytes SLIGHT = 2-5 cells (100X) (0-1/hpf)
--- NOTE | 2019-05-09 11:18 | RAD ---
PORTABLE CHEST 1 VIEW: Date: 05/09/19 Time: 0940 hours HISTORY: CHF, worsening clinical condition. FINDINGS/IMPRESSION: Comparison made with exam of 05/07/19. There are changes of median sternotomy. The heart size is prominent, but stable. Left-sided pacemaker device and right-sided subclavian central line remain in place. There are postop changes of metallic hardware in the lower cervical spine. There is atelectatic change at the left lung base with accompa nying small effusions. No pneumothoraces or corie pulmonary edema are identified. There are degenerat sarahy changes in the shoulder joints. Parenchymal opacity at the left lung base is again seen. POS: [facility]
[2019-05-09] MEDS: Ondansetron PF 4 MG/2 ML Vial IVP PRN (13:20)
[2019-05-09] MEDS: Fentanyl 100 MCG/2 ML VIAL SLOW IVP PRN (13:20)
[2019-05-09] MEDS ORDERED: Octreotide Acetate 1,250 MCG in Sodium Chloride 0.9% 250 ML 250 ML IVPB SCH (15:15)
[2019-05-09] MEDS: Midodrine HCl 5 MG TAB PO SCH ×2 (16:13→22:11)
--- NOTE | 2019-05-09 16:38 | PRG ---
DATE OF SERVICE: 05/09/2019 SUBJECTIVE: Mr. Campbell is an 83-year-old man, who is postop day #2, status post laparoscopic cholecystectomy. He is on no vasopressor or inotropic support at the moment. Urinary output has been marginal. He is quite confused at baseline. OBJECTIVE: VITAL SIGNS: This morning include blood pressure 106/75, pulse 71, respiratory rate 16, temperature 97.8 degrees Fahrenheit, and oxygen saturation 100% on 2 L by nasal cannula oxygen. ABDOMEN: Soft and nondistended. Incision was intact, clean, and dry. LABORATORY FINDINGS: Include CBC with 3200 white blood cells, hemoglobin and hematocrit 8.3 and 24.7 respectively. Platelet count 129,000. Metabolic profile; sodium 139, potassium 3.3, chloride is 101, bicarb 25, BUN 39, creatinine is 1.93, up from 1.46 yesterday. Glucose is 166. IMPRESSION: Postop day #2, status post laparoscopic cholecystectomy. PLAN: Medical management is deferred to primary service and Pulmonary Critical Care Medicine. There is no acute surgical indication for this patient at this time. Job ID: [id number]
--- NOTE | 2019-05-09 17:09 | PDOC.CTH ---
Cardiology Progress Note - Subjective The pt seen and examined. The pt cont. complaining of unable to urinate although the pt has Seo cath. - Objective Vital Signs Temp Pulse Pulse Resp BP BP Pulse Ox 05/09/19 16:15 96.8 F L 71 18 119/76 95 05/09/19 15:42 98 05/09/19 14:30 96.3 F L 76 18 119/66 98 05/09/19 12:50 97.9 F 71 22 H 99 05/09/19 08:00 97.8 F 99 05/09/19 06:37 94 L 05/09/19 06:34 71 19 94 L Admit Weight 165 lb 6.4 oz Weight 167 lb 8.821 oz 05/08/19 05/09/19 05/10/19 06:59 06:59 06:59 Intake Total 4375.4 2337.9 1110 Output Total 2800 158 5 Balance 1575.4 2179.9 1105 - Physical Examination General/Neuro: other: (confused) Lungs: other: (very diminished) Heart: other: (v paced) Abdomen: soft Extremities: other: (No edema;Jaundice) - Telemetry Telemetry Rhythm: V paced - Labs Result Diagrams: 05/09/19 09:51 05/09/19 03:52 Troponin/CKMB CK-MB (CK-2) 9.6 ng/mL (0-6.6) H* 05/03/19 16:46 Troponin I 0.054 ng/mL (< 0.028) H 05/03/19 22:29 - Assessment/Plan 1. S/p Ex-Lap La on 05/08/2019 2. Elevated LFT with Jaundice - 3. ELIA on CKD - weight control lecturer consult 4. CAD with Hx of CABG - will stop Lipitor due to elevated LFT; Not on ASA due to anemia; On BBlocker; 5. Afib with hx of Watchman device placement - 6. HTN - hypotensive without any BP meds 7. HLD - stop Lipitor for elevated LFT 8. Anemia - received 2 Units of PRBCs 9. PM placement 10. Oliguria MAR reviewed * The pt will be tx to IMCU Review of Systems - Review of Systems Constitutional: reports: see HPI
[2019-05-09] MEDS: Piperacillin/Tazobactam 2.25 GM in Sodium Chloride 0.9% 100 ML IVPB SCH (22:11)
[2019-05-09] MEDS ORDERED: Haloperidol Lactate 5 MG/ML VIAL SLOW IVP PRN (23:59)
[2019-05-10] MEDS: Hydrocortisone Sod Succ/PF 100 mg/2 ml Vial IVP SCH ×3 (00:52→11:05)
--- NOTE | 2019-05-10 01:36 | PRG ---
DATE OF SERVICE: 05/10/2019 SUBJECTIVE: The patient is postop day 2, status post laparoscopic cholecystectomy. He was transferred to the IMCU as he was taken off his vasopressors. He has had marginal urinary output and we have been following this. Otherwise, from a surgical standpoint, there has been no issues regarding his cholecystectomy. His wounds are clean and dry. OBJECTIVE: VITAL SIGNS: Remained stable and he is afebrile. ASSESSMENT: Status post laparoscopic cholecystectomy. PLAN: Plan will be to continue supportive care per the Primary Team and we will continue to follow. Job ID: [id number]
[2019-05-10 05:58] LABS: Band 13 % (5-11); Hemoglobin 10.2 g/dL (14.0-18.0); Hypochromia SLIGHT = 6-15 cells (100X) (0-5/hpf); Lymphocytes 11 % (21-51); MDiff Complete? YES; Mean Corpuscular HGB CONC 33.3 g/dL (32.0-36.0); Mean Corpuscular Volume 96.1 fL (78.0-98.0); Mean Platelet Volume 10.1 fL (7.4-10.4); Monocytes 16 % (0-10); Neutrophil 60 % (42-75); Platelet Count 156 thou/uL (130-400); Platelet Morphology Comment Appears Adequate; RBC Distribution Width 17.5 % (11.5-14.5); Red Blood Cell (RBC) Count 3.19 mill/uL (4.70-6.10); White Blood Cell (WBC) Count 5.7 thou/uL (4.8-10.8)
[2019-05-10 05:59] LABS: ALT (SGPT) 30 U/L (8-55); AST (SGOT) 52 U/L (5-34); Albumin 3.3 g/dL (3.4-4.8); Alkaline Phosphatase 137 U/L (40-150); Anion Gap 19 mmol/L (10-20); BUN (Urea Nitrogen) 51 mg/dL (8.4-25.7); Bilirubin, Total 6.3 mg/dL (0.2-1.2); Calc. Creatinine Clearance 21 mL/min (70-130); Calcium 9.1 mg/dL (7.8-10.44); Carbon Dioxide 23 mmol/L (23-31); Chloride 101 mmol/L (98-107); Estimated GFR-MDRD 22; Globulin 2.1 g/dL (2.4-3.5); Glucose 98 mg/dL (83-110); Potassium 4.6 mmol/L (3.5-5.1); Protein, Total 5.4 g/dL (5.8-8.1); Sodium 138 mmol/L (136-145)
--- NOTE | 2019-05-10 06:43 | ULT ---
URINARY BLADDER ULTRASOUND: Date 05/10/19 INDICATION: Difficulty with catheter insertion, placement evaluation. FINDINGS: There is a rounded echogenicity focus indicative of an insufflated catheter balloon. On each side of this structure, there is linear increased echogenicity, and therefore, the possibility of the cathete r balloon external to and abutting the urinary bladder wall cannot be excluded on the basis of this e xam. Adjacent fluid within the pelvis may relate to ascites. IMPRESSION: Seo catheter is not confirmed within the urinary bladder on the basis of the provided images. Recom mend follow-up with fluoroscopic cystogram, or CT cystogram to further evaluate. POS: [facility]
[2019-05-10] MEDS: Piperacillin/Tazobactam 2.25 GM in Sodium Chloride 0.9% 100 ML IVPB SCH ×3 (07:07→23:39)
[2019-05-10] MEDS: Albuterol Sulfate 2.5 mg/3 ml Neb NEB SCH ×2 (07:30→18:35)
[2019-05-10] MEDS: Arformoterol 15 MCG/2 ML NEB NEB SCH ×2 (07:32→18:36)
[2019-05-10] MEDS: Budesonide 0.5 MG/2 ML NEB NEB SCH ×2 (07:32→18:36)
[2019-05-10] MEDS: Multivitamin W/ Minerals 1 TAB PO SCH (09:08)
[2019-05-10] MEDS: Potassium Chloride 20 MEQ TAB PO SCH (09:08)
[2019-05-10] MEDS: Tamsulosin HCl 0.4 MG CAP PO SCH (09:08)
[2019-05-10] MEDS: Fish Oil 1,000 MG CAP PO SCH (09:08)
[2019-05-10] MEDS: Carvedilol 3.125 MG TAB PO SCH ×2 (09:09→17:41)
[2019-05-10] MEDS ORDERED: Furosemide 20 MG/2 ML VIAL SLOW IVP SCH (10:45)
[2019-05-10] MEDS ORDERED: Lactated Ringer's 500 ML IV SCH (10:45)
[2019-05-10] MEDS: Lactated Ringer's 1,000 ML IV SCH (11:04)
[2019-05-10] MEDS: Azelastine 137 MCG/Spray 30 ML NS SCH (11:10)
[2019-05-10] MEDS: Cyanocobalamin (Vitamin B-12) 1,000 MCG TAB PO SCH (11:11)
[2019-05-10] MEDS: Midodrine HCl 5 MG TAB PO SCH ×3 (11:11→23:38)
--- NOTE | 2019-05-10 11:32 | PDOC.FM ---
- Subjective Subjective: Pt was agitated throughout the night last night and continues to be disoriented. Received haldol. Nurse noted he was oliguric, scanned bladder and showed 850ml so stopped fluids. Replaced catheter and still no output. Ultrasound subsequently showed it was ascites. This am pt remains delirious but makes more attempts to communicate. Family was instructed on steps to improve orientation for pt. - Objective Vital Signs & Weight: Vital Signs (12 hours) Temp Pulse Resp Pulse Ox 05/10/19 08:00 97 05/10/19 07:32 99 05/10/19 07:30 75 19 99 05/10/19 07:14 97.0 F L 05/10/19 06:07 96.7 F L 05/10/19 00:58 97 F L Weight Admit Weight 75.024 kg Weight 80 kg Most Recent Monitor Data Heart Rate from ECG 85 NIBP 132/79 NIBP BP-Mean 96 Respiration from ECG 13 SpO2 87 I&O: 05/09/19 05/10/19 05/11/19 06:59 06:59 06:59 Intake Total 2337.9 1220 Output Total 158 80 Balance 2179.9 1140 Result Diagrams: 05/10/19 05:34 05/10/19 05:34 Phys Exam - Physical Examination Constitutional: NAD HEENT: sclera anicteric Left upper eyelid abrasion - self induced Neck: full ROM Respiratory: no wheezing, no rales, no rhonchi, clear to auscultation bilateral Cardiovascular: RRR Distant heart sounds Distended abdomen, healing lap incisions Musculoskeletal: no edema, pulses present Delirious at this time, makes attempts to communicate Intermittently agitated Dx/Plan (1) Transaminitis Code(s): R74.0 - NONSPEC ELEV OF LEVELS OF TRANSAMNS & LACTIC ACID DEHYDRGNSE Status: Acute (2) Congestive heart failure (CHF) Code(s): I50.9 - HEART FAILURE, UNSPECIFIED Status: Acute Qualifiers: Heart failure type: systolic Heart failure chronicity: acute on chronic Qualified Code(s): I50.23 - Acute on chronic systolic (congestive) heart failure (3) Ascites Code(s): R18.8 - OTHER ASCITES Status: Acute (4) Jaundice Code(s): R17 - UNSPECIFIED JAUNDICE Status: Acute (5) Leukocytosis Code(s): D72.829 - ELEVATED WHITE BLOOD CELL COUNT, UNSPECIFIED Status: Acute - Plan Plan: Hyperbilirubinemia and transaminitis 2/2 Cholelithiasis with cholecystitis, probably cholangitis -Elevated transaminases (AST/ALT 145/58-> 97/43>55/31>46/27>163/46>76/32), bilirubin (7.9->6.5>4.8>4.2>7.9>8.6), and alk phos (274->197>165>147>163>171) with leukocytosis (WBC 16->15.8->16.5>16.9>2.6>2.6) -RUQ US concerning for possible cirrhosis, moderate ascites, no common bile duct dilatation, possibility of large sludge ball surrounded by stones in the gallbladder vs less likely neoplasm 2/2 well defined margins and no evidence of gallbladder wall invasion -per report chest/abdomen CT at [facility] showed bilateral effusions and moderate ascites -started on Zosyn 05/04 -afebrile on admission and throughout stay to date - -surgery consulted, Dr. Baez -performed cholecystectomy 05/07 -GI consulted, Dr. Aldridge, rec HIDA scan and diagnostic paracentesis -HIDA scan 05/05: results suspicious for cystic duct occlusion on the basis of acute cholecystitis -paracentesis 05/05: fluid cloudy/turbid, 55959 WBC, 70% neutrophils, 46344 RBC, suggests inflammatory fluid, no malignant cells -ERCP 05/08: distended common duct, no filling defects, retrieved one stone -continued recs appreciated -procalcitonin 2.22>1.56>7.89>13.62 05/09 -blood & urine cultures -lipase 319>294>160 -urine output oliguric, 500ml LR bolus with 20mg Lasix -consult nephro Congestive heart failure/CAD -Most recent EF 40-45% (09/21/2017) -CXR and Abd CT note moderate bilateral pleural effusions, moderate ascites, possible LLL infiltrate -indeterminate Troponins 0.076, 0.073, 0.054, likely elevated 2/2 CHF as have been indeterminate in past admissions as well -BNP 3621 -Echo 05/05: -EF 50-55% -mod-severe mitral regurg -mod-severe tricuspid regurg -mod elevated pulmonary artery pressure -Cardiology, Dr. Lucas consulted, recommends close f/u if patient needs surgery, will continue to follow -Cardiology, Dr. Whitmore consulted, recommended continued Lasix and a beta- ann -began 3.125mg carvedilol BID 05/06 with continued monitoring of BP and pulse -re-evaluated patient 05/06 and determined that he is not low risk for surgery , but not prohibitive if necessary -supplemental O2 as needed to keep SpO2>92%, on 3L NC currently -MAP has been mostly in the 80s, has not required pressers since post operatively -continue to monitor Afib with Ventricular Pacing -will be monitored on tele HLD -continue home meds GERD -continue home meds HTN -continuously monitored in CCU -BP this morning 90s-120s/60s/70s -on carvedilol Hypokalemia -Potassium of 3.3 05/08 -takes PO KCl at home -mag 1.4 05/05 am, 2g mag added, mag 2.2 -40meq KCl -continue to monitor Oliguria -3ml urine output over one hour, decreased markedly -500ml LR bolus, + LR @ 90ml/hr -nephro consult today Diet: Heart Healthy DVT Proph: SCDs, elevated has bled score GI Proph: protonix Code Status: DNR-DNI Dispo: Nephrology consult today for oliguria, pt continues to be delirious, cont care and monitor in IMCU
--- NOTE | 2019-05-10 12:00 | PRG ---
DATE OF SERVICE: 05/10/2019 Mr. Campbell is having some episodes of delirium during the night and earlier this morning. We have asked the family to please stay with him, which they have been very good about doing. We will open the shades and let the sunlight in. Keep television on. From a medical standpoint, his belly seems flat and soft and he is tolerating a soft diet. We have encouraged the family to bring in milkshake, ice cream, etc. His white count this morning is 5700, hemoglobin 10.2, and hematocrit 30.7. Vital signs are stable with a blood pressure of 132/79. We will continue to follow with Surgery. Job ID: [id number]
--- NOTE | 2019-05-10 12:13 | OP ---
DATE OF PROCEDURE: 05/07/2019 ADDENDUM: Please add to the operative report, last paragraph. The patient's liver was mildly nodular and as there was some concern about alcoholic cirrhosis (viral serology negative), core liver biopsies obtained percutaneously with core liver biopsy gun. Two cores obtained, submitted to Pathology for permanent section. Cautery used on the biopsy site to gain good hemostasis in the liver. The patient tolerated the procedure well. Job ID: [id number]
--- NOTE | 2019-05-10 12:17 | OP ---
DATE OF PROCEDURE: 05/07/2019 PREOPERATIVE DIAGNOSES: Postoperative low blood pressure, coronary artery disease, cirrhosis, status post cholecystectomy, choledocholithiasis, pending ERCP. POSTOPERATIVE DIAGNOSES: Postoperative low blood pressure, coronary artery disease, cirrhosis, status post cholecystectomy, choledocholithiasis, pending ERCP. PROCEDURE PERFORMED: Right subclavian vein triple-lumen catheter. ANESTHESIA: 1% Xylocaine. DESCRIPTION OF PROCEDURE: With the patient at bedside, right upper clavicular area was prepared with ChloraPrep and draped in routine fashion. Local anesthetic was infiltrated in the skin and subcutaneous tissue about the operative site. Trocar catheter was induced through the subclavian vein, J-wire threaded, trocar catheter removed, skin site was enlarged sharply. Triple-lumen catheter placed over the J-wire into the subclavian vein. J-wire removed. Catheter secured with two 2-0 sutures of 3-0 silk and sterile dressing applied. The patient tolerated the procedure well. Job ID: [id number]
--- NOTE | 2019-05-10 12:24 | OP ---
DATE OF PROCEDURE: 05/08/2019 PRE-PROCEDURE DIAGNOSIS: Choledocholithiasis on cholecystectomy yesterday. POST-PROCEDURE DIAGNOSIS: Choledocholithiasis. No signs of cholangitis with clear bile. PROCEDURE PERFORMED: Endoscopic retrograde cholangiopancreatography with sphincterotomy, removal of common bile duct stones. ANESTHESIA: General endotracheal anesthesia. The patient was brought down from the ICU on pressors. Please note, the patient was given 100 mg rectally to help prevent postprocedure pancreatitis. DESCRIPTION OF PROCEDURE: After the patient's family was informed the risks, benefits, and possible complications of an ERCP including perforation, reaction to medication, and aspiration, informed consent was obtained, and the patient brought to the endoscopy suite, where he was sedated in gradual fashion. Once he was comfortable, he was intubated and placed in prone position on fluoroscopy table. He was on pressors when he came from the ICU and these were increased once he underwent induction of anesthesia. For the details, please see Anesthesia's records. Once the patient was completely sedated in position, side-viewing duodenoscope was advanced to the esophagus, stomach, and second and third portion of the duodenum and the ampulla was brought into view. A bulging stone was noted coming from the ampulla. Cannulation was obtained. The wire was placed up above this. The sphincterotomy was performed. The stone was removed. After this, cholangiogram was performed showing multiple other stones, the duct was about 1 cm and the stones were swept away with a 12-mm balloon. The duct was swept several times and the stones were removed with no other abnormalities or filling defect seen. Occlusion cholangiogram was performed, which was negative. There was good spontaneous contrast . There was no evidence of pus in the biliary drainage. The scope was removed. The patient was brought to the recovery room in stable condition. Job ID: [id number]
[2019-05-10 13:21] VITALS: BMI 28.4
--- NOTE | 2019-05-10 15:40 | PRG ---
DATE OF SERVICE: 05/09/2019 SUBJECTIVE: Mr. Campbell has just been moved out of the ICU to a floor bed. He has really had no urine output overnight. He has weaned from dopamine last night. Urine output on the at 7 a.m. was documented at 1200 mL through his Seo. We yesterday had minimal output. 158 mL documented overnight. Apparently, his Seo was changed. The bladder scan was done, which showed 400 mL of urine; however, I suspect that is ascites as the Seo was flushing easily and it was changed easily and still flushed easily. Surgery decided to give him a unit of blood to see if that would help his urine output. He had been getting albumin q.6 and his serum albumin is now 3.4, who is getting Toradol and that has been stopped. Nephrology consult has been called. He remains confused and has been overnight, that has been present since his cholecystectomy. Medications were all reviewed with the nursing staff. OBJECTIVE: VITAL SIGNS: Temperature 97.9, pulse 71, blood pressure 106/75 at 12:51 overnight, his lowest pressure was 96/65. In's and out's as noted in summary of events overnight. GENERAL: He is mildly icteric still. He is confused. He recognizes his son and his . LUNGS: Clear. HEART: Regular rate and rhythm. ABDOMEN: Protuberant. There is shifting dullness, but it is not tense. There is some fluid wave. It is nontender. There are no hernias. EXTREMITIES: No edema. LABORATORY STUDIES: Sodium 139; potassium 3.3; BUN and creatinine of 39 and 1.93, up from 38 and 1.46 yesterday, and 34 and 1.26 on the . On his admission of , his creatinine was 1.66. INR is 1.8 today. Remainder of the labs; bilirubin is 8.6 with 7.9 yesterday. AST is down from 163 to 76, ALT is down from 46 to 32, and alkaline phosphatase is down from 326 to 171. Protein is 4.9, albumin is 3.4. Cortisol was 20. Ascitic fluid on the showed 21,000 white blood cells, 57,000 red blood cells. ASSESSMENT: 1. Status post endoscopic retrograde cholangiopancreatography for choledocholithiasis. No signs of cholangitis. 2. Status post laparoscopic cholecystectomy for chronic cholecystitis. 3. He had peritonitis by his tap on admission. I did not think this was SBP, but probably secondary gallbladder disease. Unfortunately, culture was not drawn on that fluid. He has defervesced well and his white count has dropped with antibiotics. 4. Confusion. This is probably sundowning to some degree and other degree of exacerbation of his baseline dementia from 2 anesthetics and ICU stay. 5. P.o. intake. He is taking in full liquid diet with no dysphagia or odynophagia. 6. Renal failure. Starting yesterday, it seems he started having poor renal output. He was on dopamine and this was weaned overnight. His urine output did not increase. Talking with the ICU nurse, he was given a 500 mL bolus of LR, in addition to the albumin he was getting overnight and the IV fluids. Today, the surgeon's decided to give him a transfusion. They also stopped his Toradol. He was given some hydrocortisone by the residents, 50 IV q.6, it is unclear why. As he has normal cortisol, present IV fluids are LR 90. RECOMMENDATIONS: 1. Avoid all NSAIDs. 2. Start midodrine 5 mg p.o. t.i.d. for possible hepatorenal syndrome. 3. Start octreotide 75 mcg hepatorenal syndrome. 4. After transfusion, the patient is not started having urination. We would increase LR to 225 mL an hour and resume albumin. 5. I have a low threshold to move the patient back to the ICU. 6. Agree with Renal consultation. Job ID: [id number]
--- NOTE | 2019-05-10 15:44 | PRG ---
DATE OF SERVICE: 05/10/2019 SUBJECTIVE: Mr. Campbell was moved back to IMU yesterday after I saw him. He was seen by Nephrology and Cardiology. He received a unit of blood yesterday. I started him on octreotide drip and midodrine for possible hepatorenal failure or possible contributing factor of that. We also decreased his antibiotics to doses for renal failure. The nurses note he has had no urine output. His notes he is finally getting some sleep over the last hour. OBJECTIVE: VITAL SIGNS: Heart rate is 80 to 81; blood pressure, systolics ranged from 132 to 99, diastolics in the 70s to 80s; temperature is 97.9. HEENT: He is icteric. LUNGS: Clear. ABDOMEN: Protuberant with some tympany. It is soft and not distended or tight. There is no shifting dullness or fluid wave. EXTREMITIES: Reveal no edema. LABORATORY DATA: White count is 5.7, hemoglobin is 10.2, platelet count 156. INR is 1.8. Sodium 138; potassium is 4.6; BUN and creatinine of 51 and 2.74; bilirubin is 6.3, from 8.6; is 452, from 73; ALT is 30; and is normal at 137; albumin is 3.3. Cortisol was 20. Blood cultures from 05/09 are pending. ASSESSMENT: 1. Status post cholecystectomy and endoscopic retrograde cholangiopancreatography for cholecystitis and choledocholithiasis. 2. Dementia, on admission, worsened after 2 trips to the OR and sepsis. 3. Presentation with sepsis and cholecystitis. 4. Heart failure. 5. 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 RECOMMENDATIONS: 1. We would defer all fluid management to Nephrology at this point in time. Apparently, furosemide has been ordered. I recommend that be held until Urology confirms whether or not they want to do that. 2. There is no role for adding albumin at this time with a serum albumin at 3.3 after infusions last week. 3. We will dose all medications for renal failure, GFR 0. 4. We will stop hydrocortisone. There is no evidence of adrenal insufficiency in this patient. He has a serum cortisol of 20 on a routine testing. He had an infection. Steroids his confusion. We will discontinue that. We will follow along with you. Job ID: [id number]
--- NOTE | 2019-05-10 16:09 | CT ---
CT BRAIN WITHOUT CONTRAST: HISTORY:Altered mental status, delirium COMPARISON:10/29/2017 FINDINGS: There are foci of decreased attenuation in the periventricular white matter, consistent with chronic small vessel ischemic disease. Cortical atrophy is again seen. No evidence of acute infarct, hemorrhage, midline shift or abnormal extra-axial fluid collections is seen. The ventricular size is appropriate and the basilar cisterns are patent. The bony calvarium is intact. The visualized paranasal sinuses and mastoid air cells are well aerated. IMPRESSION: No CT evidence of acute intracranial process.
--- NOTE | 2019-05-10 19:24 | PRG ---
DATE OF SERVICE: 05/10/2019 SUBJECTIVE: Mr. Campbell is not doing well this morning. He appears to have delirium. He is confused. He is not making sense. Yesterday, he was on pressors including norepinephrine and dopamine. He has been now off the medication. His creatinine continues to increase. His PT/INR has also increased. OBJECTIVE: VITAL SIGNS: Blood pressure 127/70, pulse 74, temperature afebrile. GENERAL: The patient is not oriented to time, person, or place. LUNGS: Clear to auscultation. HEART: Regular rate and rhythm. ABDOMEN: Soft, nontender, nondistended. EXTREMITIES: 1 to 2+ pitting edema. LABORATORY DATA: Pertinent labs as above. IMPRESSION: 1. Acute delirium. 2. Worsening renal function. 3. PTT 47 with INR of 1.8. RECOMMENDATIONS: I visited with Mr. Campbell and his family on two separate occasions today. I visited with his in addition to his son-in-law, Sami Marc. I also visited with Dr. Gael Sharma. Given his current findings, we are awaiting final recommendations from Nephrology. His son would like to take him back home. I would like to proceed with hospice care with further support. Based on the fact that Mr. Campbell had expressed on multiple occasions, wanted to be home, would certainly be okay from my standpoint to go home with hospice care. I did state that he may improve slowly overtime, not requiring further hospice, but based on the most recent findings suggesting hepatorenal syndrome, this may be imminent. Otherwise from my standpoint, I have no further recommendations. Job ID: [id number]
[2019-05-10 19:26] VITALS: TEMP 97.6
--- NOTE | 2019-05-10 20:22 | PRG ---
DATE OF SERVICE: 05/10/2019 SUBJECTIVE: Mr. Campbell has been moved from ICU to [facility]. He is confused, but that is his baseline. He does consume significant alcohol. The patient states he has 3 to 4 ounces a day. His states he has one drink a day, while other family members in the background say no, he drinks much more. He has been hospitalized since 05/03/2019. The patient does converse, but is confused. He has a Seo catheter still in place due to urinary retention due to previous prostate surgery and difficulty Seo placement, this will be left in place until Dr. Herrera states it is safe to remove. OBJECTIVE: VITAL SIGNS: Temperature 97 degrees, heart rate 79, blood pressure 127/70. LUNGS: Clear to auscultation. CARDIAC: Regular rate and rhythm without murmur or gallop. ABDOMEN: Soft, nontender. Surgical wounds look good. EXTREMITIES: Mild edema. LABORATORY DATA: White count 5, hemoglobin 10.2. Sodium 138, potassium 10, BUN 51, creatinine 2.74, bilirubin down from 8.6 to 6.3. Pathology from his cholecystectomy and liver biopsy are pending. ASSESSMENT AND PLAN: 1. Alcoholism, cirrhosis. This was appreciated both by preoperative ultrasound and CAT scan with a nodular liver and intraoperatively laparoscopy. Liver biopsy is pending. Liver function test elevation is multifactorial due to inherent liver disease, recent surgery, choledocholithiasis, status post laparoscopic cholecystectomy, positive cholangiograms, subsequent endoscopic retrograde cholangiopancreatography with stone extraction. Continue diet as tolerated. 2. Acute kidney injury. Continue IV fluids, hydration. 3. Congestive heart failure, atrial fibrillation. 4. Mild coagulopathy secondary to his liver disease, PT 20.9. Hemoglobin remained stable. The patient has received 2 units of blood this hospitalization. Dr. Whitmore is following him. Dr. Gregory is following him, and Family Medicine is following him. Job ID: [id number]
--- NOTE | 2019-05-10 20:25 | PDOC.EVN ---
Event Note - Event Note Event Note: Pt's family and POA collectively decided to pursue hospice care tonight. They discussed this with the patient's PCP Dr. Sharma who is aware of his condition and was agreeable and arranged for [facility] to see the pt tonight at their home. Dr. Billingsley was notified, saw the pt, and spoke with the family and was agreeable to discharge the pt to hospice care. Dr. Gregory, GI, and Dr. Hatfield, nephro, were contacted and agreed that hospice was the best option for the pt at this time considering the families wishes.
[2019-05-10 22:23] VITALS: BP 116/69
[2019-05-10] MEDS: Fentanyl 100 MCG/2 ML VIAL SLOW IVP PRN (23:01)
--- NOTE | 2019-05-11 10:35 | CON ---
DATE OF CONSULTATION: REQUESTING PHYSICIAN: [facility]. REASON FOR CONSULTATION: Acute kidney injury IMPRESSION: 1. Acute kidney injury. This is likely prerenal in the context of in the peritoneal cavity thus compromising possibility of hepatorenal syndrome, not completely ruled out. The patient seems to be anuric despite several things to . Given the inability of this patient to pass much of any urine, decision was taken to not making much of urine. Decision was then taken to involve Renal in the management of this case. The patient while on the floor was very confused and gentle hydration initiated, but this could not make much of any difference. At this time, we will follow the patient from an transition the patient over to hospice as patient would not like to be subjected to all kinds of intensive procedures. PAST MEDICAL HISTORY: Significant for dyslipidemia, coronary artery disease, congestive heart failure, hypertension, atrial fibrillation, peripheral vascular disease, asthma. MEDICATIONS: Reviewed and as documented on [employer]. SOCIAL HISTORY: He denies alcohol or illicit drug use. FAMILY HISTORY: Not significantly related to present illness. REVIEW OF SYSTEMS: As documented in the body of the history. All other systems were reviewed and found not to be significantly related to present illness. The patient seems to be very confused. PHYSICAL EXAMINATION: GENERAL: The patient was found somewhat jaundiced, noted with following vital signs. VITAL SIGNS: Afebrile, temperature 97.6, pulse 75, respiratory rate of 21, blood pressure 116/69. CARDIOVASCULAR: First and second heart sounds were heard. RESPIRATORY: Clear to auscultation. DIGESTIVE: Revealed a benign abdomen. EXTREMITIES: No peripheral edema. SKIN: No new gross rash. LYMPHATICS: No peripheral lymphadenopathy. SUMMARY: An 83-year-old male patient, Thank you for this consultation. We will follow with you. Job ID: [id number]
--- NOTE | 2019-05-11 14:58 | DIS ---
DATE OF ADMISSION: 05/03/2019 DATE OF DISCHARGE: 05/10/2019 RESIDENT: Reece Wallis DO. ADMITTING ATTENDING: Dane Reardon MD. DISCHARGE ATTENDING: Bryon Ravi MD. CONSULTS: Gastroenterology, Surgery, Cardiology, and Nephrology. PROCEDURES: Laparoscopic cholecystectomy, ERCP, and central line placement. PRIMARY DIAGNOSES: 1. Hepatorenal syndrome. 2. Ascending cholangitis. 3. Possible cirrhosis. SECONDARY DIAGNOSES: 1. Ascites. 2. Jaundice. 3. Transaminitis. 4. Leukocytosis. DISCHARGE MEDICATIONS: Immediate release morphine to be used by hospice. DISCONTINUED MEDICATIONS: None. HISTORY OF PRESENT ILLNESS AND HOSPITAL COURSE: This is an 83-year-old male who presented as a transfer from the [facility] ED for nausea, vomiting, abdominal pain, and jaundice. The patient presented with and caregiver stating that he has had increased intermittent confusion, episodic vomiting at night, decreased appetite, and recent diffuse abdominal pain. In the [facility] ED, they found the patient to have a CT that was significant for moderate ascites with probable gallstones and moderate bilateral pleural effusion. Labs were also significant for elevated LFTs, bilirubin, BNP, and white blood cell count. The patient was transferred to [facility] ED. Ultrasound here showed possible cirrhosis and an intraluminal gallbladder mass that was described as likely sludge ball versus possible neoplasm. The patient was subsequently admitted with Gastroenterology and Surgery consult. Surgery felt that the patient would benefit from cholecystectomy due to the confirmed cholelithiasis and likely biliary obstruction; however, they felt he needed cardiac optimization and therefore deferred to Cardiology for further judgment. GI saw the patient and felt that the patient also would need to be optimized prior to an ERCP, ultrasound did not note any common bile duct dilation, so a common bile duct stone seems less likely. Cardiology subsequently saw the patient and felt that he would be at least at moderate risk for any procedures and agreed to follow the patient throughout his stay. The patient had a HIDA scan that showed no uptake activity after 4 hours, concerning likely biliary obstruction. Throughout the stay, the patient was receiving antibiotics and his leukocytosis continued to improve. With fluids, his LFTs began to normalize including his bilirubin. His PT and PTT, however, continued to increase throughout the stay. On 05/07, the patient had an ERCP which resulted in the extraction of 1 common bile duct stone. The patient subsequently had a laparoscopic cholecystectomy without complication. In the postoperative period, the patient became hypotensive, requiring admission to the CCU and pressors. A central line was placed. From that point on, the patient's mental status continued to deteriorate and he became delirious. The patient remained in this state throughout the remainder of his admission. On 05/09/2019, the patient started become oliguric and mental status continued to further deteriorate. His creatinine also continued to increase along with his PT and PTT. GI and Nephrology, both agreed that the patient was likely entering hepatorenal syndrome and had a poor prognosis and mortality. The patient's family met and agreed to start the patient on hospice and they felt this would be most congruent with his wishes. The patient's PCP, Dr. Sharma, was contacted and arranged for the patient to have home hospice visit him upon discharge. Dr. Billingsley agreed with this plan as well as all consulting providers and the patient was discharged home with morphine and home hospice care. DISPOSITION: Guarded. DISCHARGE INSTRUCTIONS: 1. Location: Home, with hospice. 2. Diet: Liquid diet as tolerated, likely risk for aspiration of hospice patients. 3. Activity: No restriction. During times of agitation, the patient would benefit from soft restraints to assist in preventing self-harm. 4. Followup: Follow up PCP, Dr. Sharma, is aware of transition to hospice care, he remained available. The patient is currently in hospice care and will remain there unless his current status improves. Job ID: [id number]
== END 2019-05-10 23:30 | disposition hospice, home (50) | DRG 417 ==
LOC: ERS 15:25 → 2NO 16:52 → CCU 05-07 19:23 → 2NO 05-09 14:57 → IMCU/EMU 05-09 16:43
PROVIDERS: ADMIT Family Medicine; ATTEND Family Medicine
PROC: 0FC98ZZ Extirpation of Matter from Common Bile Duct, Via Natural or Artificial Opening Endoscopic (ICD-10-PCS; 2019-05-03)
PROC: 0W9G3ZX Drainage of Peritoneal Cavity, Percutaneous Approach, Diagnostic (ICD-10-PCS; principal; 2019-05-05)
PROC: BF4CZZZ Ultrasonography of Hepatobiliary System, All (ICD-10-PCS; 2019-05-05)
PROC: BF131ZZ Fluoroscopy of Gallbladder and Bile Ducts using Low Osmolar Contrast (ICD-10-PCS; 2019-05-07)
PROC: 02HV33Z Insertion of Infusion Device into Superior Vena Cava, Percutaneous Approach (ICD-10-PCS; 2019-05-07)
PROC: 0FJB8ZZ Inspection of Hepatobiliary Duct, Via Natural or Artificial Opening Endoscopic (ICD-10-PCS; 2019-05-07)
PROC: BF131ZZ Fluoroscopy of Gallbladder and Bile Ducts using Low Osmolar Contrast (ICD-10-PCS; 2019-05-07)
PROC: 0FT44ZZ Resection of Gallbladder, Percutaneous Endoscopic Approach (ICD-10-PCS; 2019-05-08)
PROC: BF131ZZ Fluoroscopy of Gallbladder and Bile Ducts using Low Osmolar Contrast (ICD-10-PCS; 2019-05-08)
PROC: 0FB44ZX Excision of Gallbladder, Percutaneous Endoscopic Approach, Diagnostic (ICD-10-PCS; 2019-05-08)
DX: K80.31 Calculus of bile duct with cholangitis, unspecified, with obstruction (principal); K76.7 Hepatorenal syndrome; I50.23 Acute on chronic systolic (congestive) heart failure; A41.9 Sepsis, unspecified organism; I13.0 Hypertensive heart and chronic kidney disease with heart failure and stage 1 through stage 4 chronic kidney disease, or unspecified chronic kidney disease; R18.8 Other ascites; J90 Pleural effusion, not elsewhere classified; N39.0 Urinary tract infection, site not specified; I24.8 Other forms of acute ischemic heart disease; N17.9 Acute kidney failure, unspecified; K74.60 Unspecified cirrhosis of liver; E78.5 Hyperlipidemia, unspecified; Z66 Do not resuscitate; D63.1 Anemia in chronic kidney disease; I73.9 Peripheral vascular disease, unspecified; K21.9 Gastro-esophageal reflux disease without esophagitis; I50.9 Heart failure, unspecified; I25.10 Atherosclerotic heart disease of native coronary artery without angina pectoris; E78.1 Pure hyperglyceridemia; R13.10 Dysphagia, unspecified; E87.6 Hypokalemia; E83.42 Hypomagnesemia; J42 Unspecified chronic bronchitis; Z51.5 Encounter for palliative care; M19.90 Unspecified osteoarthritis, unspecified site; F10.10 Alcohol abuse, uncomplicated; R74.0 Nonspecific elevation of levels of transaminase and lactic acid dehydrogenase [LDH]; I95.81 Postprocedural hypotension; F03.90 Unspecified dementia, unspecified severity, without behavioral disturbance, psychotic disturbance, mood disturbance, and anxiety; J45.909 Unspecified asthma, uncomplicated; I48.91 Unspecified atrial fibrillation; Z79.01 Long term (current) use of anticoagulants; Z95.0 Presence of cardiac pacemaker; Z88.6 Allergy status to analgesic agent; Z88.8 Allergy status to other drugs, medicaments and biological substances; Z98.1 Arthrodesis status; Z95.1 Presence of aortocoronary bypass graft
CPT/HCPCS: 36415; 36430; 47532; 49083; 70450; 71045; 74330; 76705; 76856; 78226; 80053; 80074; 81001; 82042; 82140; 82533; 82553; 82805; 83605; 83690; 83735; 84145; 84157; 85025; 85046; 85060; 85610; 85730; 86850; 86900; 86901; 87040; 87086; 88112; 88304; 88305; 88307; 88313; 89051; 93005; 93010; 93306; 93798; 94640; 96374; 96375; A9537; C9113; J0131; J0670; J1265; J1610; J1630; J1644; J1720; J1885; J1940; J2001; J2354; J2370; J2405; J2543; J2704; J3010; J3475; J3480; J3490; J7050; J7070; J7611; J7626; P9016; P9045; P9047; Q0162